=== PATIENT | female | born 1970 | race Caucasian/White ===

== ENCOUNTER 2019-02-11 13:46 | Inpatient (IN) ==
[2019-02-11 15:02] LABS: Bilirubin,Urine Negative (Negative); Blood,Urine Negative (Negative); Clarity,Urine Clear (Clear); Color,Urine Yellow (Yellow); Glucose,Urine (UA) Normal (Normal); Ketones,Urine Negative (Negative); Leukocyte Esterase,Urine Negative (Negative); Nitrite,Urine Negative (Negative); Protein,Urine Negative (Neg-Trace); Specific Gravity,Urine 1.027 (1.010-1.025); Urobilinogen,Urine Normal (Normal)
[2019-02-11] MEDS ORDERED: Ondansetron ODT 4 MG TAB.RAPDIS SL ONE (15:32)
[2019-02-11 15:33] LABS: Basophils % 0.5 %; Eosinophils # 0.2 K/mcL (0.0-0.6); Eosinophils % 2.8 %; Hematocrit 38.6 % (35.3-44.9); Hemoglobin 12.4 g/dL (11.5-15.4); Immature Granulocytes % 0.2 % (0-4); Lymphocytes # 1.8 K/mcL (0.6-4.6); Lymphocytes % 28.6 %; Mean Corpuscular HGB Conc 32.1 g/dL (31.6-35.5); Mean Corpuscular Hemoglobin 26.6 pg (28.0-33.3); Mean Corpuscular Volume 82.7 fL (83.0-100.0); Mean Platelet Volume 9.7 fL (9.4-12.4); Monocytes # 0.4 K/mcL (0.0-1.3); Monocytes % 6.7 %; Neutrophils # 3.9 K/mcL (1.6-8.9); Platelet Count 380 K/mcL (140-400); Red Blood Count 4.67 M/mcL (3.82-4.97); Red Cell Distribution Width 13.5 % (11.5-14.5); Segmented Neutrophils % 61.2 %; White Blood Count 6.4 K/mcL (4.3-11.1)
[2019-02-11 15:58] LABS: BUN/Creatinine Ratio 16 (6-26); Blood Urea Nitrogen 14 mg/dL (6-20); Calcium 10.1 mg/dL (8.6-10.3); Carbon Dioxide 22 mEq/L (23-29); Chloride 107 mEq/L (98-107); Glucose 153 mg/dL (70-105); Osmolality,Calculated 286 (280-300); Potassium 3.8 mEq/L (3.5-5.1); Sodium 136 mEq/L (136-145); eGFR For African Americans > 60 (> 60); eGFR For Non-African Americans > 60 (> 60)
[2019-02-11] MEDS ORDERED: *HR* Promethazine 25 MG/ML VIAL IVP ONE (16:13)
[2019-02-11] MEDS ORDERED: 0.9 % Sodium Chloride 1,000 ML IVC ONE (16:13)
--- NOTE | 2019-02-11 16:22 | Emergency Department Note ---
Disposition Clinical Impression: Enterocolitis Disposition: Admitted As Inpatient Time of Disposition: 18:04 Abdominal Pain HPI - General Chief Complaint: ED Abdominal Pain Stated Complaint: C-Diff Time Seen by Provider: 02/11/19 13:49 Source: patient Mode of arrival: ambulatory Limitations: no limitations Nursing Notes Reviewed: Yes Vital Signs Reviewed: Yes - History of Present Illness HPI Narrative: 49F with PMHx of gastroparesis and C diff presents emergency Department with abdominal pain, nausea, vomiting and diarrhea and concerns for recurrence of C. difficile. Patient states that she was recently taking Augmentin for a tooth infection and last took antibiotics on the . Since then she has been having diarrhea that has been worsening daily but had been able to keep herself hydrated with fluids. Today she began having nausea and vomiting and has not been able to keep anything down and she is concerned she has developed C. difficile again. She states the stools are beginning to smell like C. difficile like when she had in the past. She went to many antibiotics and there is talks of a fecal transplant for her C. difficile when she had it many years ago but she finally was able to have the infection controlled by taking dificid. She denies fever, chills, chest pain, shortness of breath, dysuria. She has not noticed any blood in the stools. Pain Scale: 8 - Related Data Home Medications Medication Instructions Recorded Confirmed Bentyl 20 mg PO TID 09/11/15 02/11/19 Lantus 60 units SQ DAILY 09/11/15 02/11/19 Protonix 40 mg PO BID 09/11/15 02/11/19 Seroquel 600 mg PO DAILY 09/11/15 02/11/19 Zanaflex 4 mg PO DAILY 09/11/15 02/11/19 Exenatide Microspheres [Bydureon 2 mg SQ 02/11/19 Pen] Fenofibrate Nanocrystallized 145 mg PO DAILY 02/11/19 02/11/19 [Fenofibrate] HydrOXYzine [Atarax] 50 mg PO TID PRN 02/11/19 02/11/19 Insulin ASPART [NovoLOG] 02/11/19 02/11/19 Lisinopril [Zestril] 10 mg PO DAILY 02/11/19 02/11/19 Misoprostol [Cytotec] 200 mcg PO TID 02/11/19 02/11/19 Modafinil [Provigil] 200 mg PO 02/11/19 02/11/19 Paroxetine [Paxil] 30 mg PO BID 02/11/19 02/11/19 Prochlorperazine Maleate 5 mg PO DAILY PRN 02/11/19 02/11/19 [Compazine] traZODone [TraZODone] 100 mg PO DAILY 02/11/19 02/11/19 Allergies Allergy/AdvReac Type Severity Reaction Status Date / Time metformin [From Glucophage] Allergy Diarrhea Verified 09/11/15 10:26 vancomycin Allergy Rash Verified 09/11/15 10:26 All systems ED: reviewed and negative except as stated. Review of Systems: As Per HPI Constitutional: Denies: fever, chills, weakness Cardiovascular: Denies: chest pain, palpitations, dyspnea on exertion Respiratory: Denies: cough, dyspnea, wheezes Gastrointestinal: Reports: abdominal pain, nausea, vomiting, diarrhea. Denies: melena, hematochezia Genitourinary: Denies: dysuria, hematuria Musculoskeletal: Denies: back pain Neurological: Denies: headache Endocrine: Reports: fatigue Abdominal Pain PMH - Past Medical History Medical history: Reports: diabetes, GERD, hyperlipidemia Female Surgical History: Reports: appendectomy, cholecystectomy, hysterectomy, other - Social History Smoking status: Never smoker Alcohol use: Reports: none Physical Exam - General Limitations: no limitations General appearance: alert, other (appears uncomfortable) - Head Head exam: atraumatic, normocephalic - Eye Eye exam: Present: normal appearance, EOMI - Chest Chest inspection: Present: normal inspection. Absent: tenderness, rash - Respiratory Respiratory exam: Present: normal lung sounds bilaterally. Absent: wheezes - Cardiovascular Cardiovascular exam: Present: regular rate, normal rhythm - Abdominal Exam Abdominal exam: Present: soft, tenderness. Absent: distention, guarding, rebound, rigidity Abdominal tenderness: Present: diffuse, mild - Extremities Exam Extremities exam: Present: normal inspection. Absent: tenderness - Neurological Exam Neurological exam: Present: alert, oriented X3 - Psychiatric Psychiatric exam: Present: normal affect, normal mood - Skin Skin exam: Present: warm, dry, intact Course Vital Signs Temperature 98.6 F 02/11/19 13:49 Pulse Rate 72 02/11/19 13:49 Respiratory Rate 18 02/11/19 13:49 Blood Pressure 145/100 02/11/19 13:49 O2 Sat by Pulse Oximetry 99 02/11/19 13:49 Temperature 98.6 F 02/11/19 13:59 Pulse Rate 70 02/11/19 15:44 Respiratory Rate 18 02/11/19 15:44 Blood Pressure 147/87 02/11/19 15:44 O2 Sat by Pulse Oximetry 99 02/11/19 15:44 Oxygen Delivery Oxygen Delivery Room Air Abdominal Pain - MDM Narrative Medical decision making narrative: Patient presents with worsening diarrhea, nausea and vomiting and concerns for recurrence of C. difficile. We will obtain basic labs and a CAT scan of the patient's abdomen and administer Zofran for nausea. We will also send a GI panel. 1620 - patient's CAT scan shows nonspecific enterocolitis. GI panel was negative for any infectious causes of her diarrhea. patient is still complaining of nausea therefore we will administer Phenergan and try by mouth c hallenge. If she is unable to tolerate this we will admit her for her colitis. 1800 - patient is unable to tolerate anything by mouth therefore we will admit her. Accepting physician is Dr. Mendoza. - Medical Records Medical records reviewed: Yes I reviewed the patient's medical records. - Lab Data Lab results reviewed: Yes I reviewed the patient's lab results. Result diagrams: 02/11/19 14:46 02/11/19 14:46 Lab Results 02/11/19 02/11/19 02/11/19 Range/Units 14:46 14:46 14:49 WBC 6.4 (4.3-11.1) K/mcL RBC 4.67 (3.82-4.97) M/mcL Hgb 12.4 (11.5-15.4) g/dL Hct 38.6 (35.3-44.9) % MCV 82.7 L (83.0-100.0) fL MCH 26.6 L (28.0-33.3) pg MCHC 32.1 (31.6-35.5) g/dL RDW 13.5 (11.5-14.5) % Plt Count 380 (140-400) K/mcL MPV 9.7 (9.4-12.4) fL Immature Gran % 0.2 (0-4) % Seg Neutrophils % 61.2 % Lymphocytes % 28.6 % Monocytes % 6.7 % Eosinophils % 2.8 % Basophils % 0.5 % Neutrophils # 3.9 (1.6-8.9) K/mcL Lymphocytes # 1.8 (0.6-4.6) K/mcL Monocytes # 0.4 (0.0-1.3) K/mcL Eosinophils # 0.2 (0.0-0.6) K/mcL Basophils # 0.0 (0.0-0.2) K/mcL Sodium 136 (136-145) mEq/L Potassium 3.8 (3.5-5.1) mEq/L Chloride 107 (98-107) mEq/L Carbon Dioxide 22 L (23-29) mEq/L BUN 14 (6-20) mg/dL Creatinine 0.90 (0.60-1.20) mg/dL Est GFR ( Amer) > 60 (> 60) Est GFR (Non-Af Amer) > 60 (> 60) BUN/Creatinine Ratio 16 (6-26) Glucose 153 H (70-105) mg/dL Calculated Osmolality 286 (280-300) Calcium 10.1 (8.6-10.3) mg/dL Urine Color Yellow (Yellow) Urine Clarity Clear (Clear) Urine pH 6.0 (5.0-8.0) pH Units Ur Specific [place] 1.027 H (1.010-1.025) Urine Protein Negative (Neg-Trace) mg/dL Urine Glucose (UA) Normal (Normal) mg/dL Urine Ketones Negative (Negative) mg/dL Urine Blood Negative (Negative) Urine Nitrite Negative (Negative) Urine Bilirubin Negative (Negative) Urine Urobilinogen Normal (Normal) mg/dL Ur Leukocyte Esterase Negative (Negative) Ur Culture Indicated? NO (NO) - Radiology Data Radiology results reviewed: Yes I reviewed the patient's radiology results. Attestation Statement - Attestation Attestation: I, Warren James, examined this patient and my medical decision-making was reviewed with the CRM MARKETING SPECIALIST/PA/Advanced Practice Nurse/Resident Physician. I agree with the documented findings, disposition and treatment plan as described except to the extent set forth below. 49-year-old female presents emergency Department with concerns of persistent diarrhea. Patient states she has been taking Augmentin for a sinus infection. She started developing persistent diarrhea. She has had at least 5-6 bowel movements a day that are described as liquid and fell swelling. She has a history of C. difficile and this feels similar to that. Patient has been unable to tolerate by mouth intake well as an outpatient. CT showed nonspecific enterocolitis. Patient started on antibiotics emergency department. C. diffici le toxin assay was negative. Patient not tolerating by mouth intake. She will be admitted to the hospital service further care and evaluation.
[2019-02-11 17:20] LABS: Adenovirus F 40/41 PCR Not detected (Not detect); Astrovirus PCR Not detected (Not detect); C.difficile Toxin A/B Gene PCR Not detected (Not detect); Campylobacter by PCR Not detected (Not detect); Cryptosporidium by PCR Not detected (Not detect); Cyclospora cayetanensis PCR Not detected (Not detect); E. coli O157 by PCR Not detected (Not detect); Entamoeba histolytica PCR Not detected (Not detect); Enteroaggregative E.coli(EAEC) Not detected (Not detect); Enteropathogenic E.coli(EPEC) Not detected (Not detect); Enterotoxigenic E.coli (ETEC) Not detected (Not detect); Giardia lamblia PCR Not detected (Not detect); Norovirus GI/GII PCR Not detected (Not detect); Plesiomonas shigelloides PCR Not detected (Not detect); Rotavirus A PCR Not detected (Not detect); Salmonella PCR Not detected (Not detect); Sapovirus PCR Not detected (Not detect); Shig/EnteroinvasiveE coli EIEC Not detected (Not detect); Shigalike tox-prod E coli STEC Not detected (Not detect); Vibrio PCR Not detected (Not detect); Vibrio cholerae PCR Not detected (Not detect); Yersinia enterocolitica PCR Not detected (Not detect)
--- NOTE | 2019-02-11 17:38 | Internal Med History&Physical ---
Date of Encounter: 02/11/19 Time of Encounter: 17:45 Internal Medicine - H&P: HPI Chief complaint: Intractable nausea, vomiting and diarrhea along with abdominal pain Admitted From: Emergency Dept Plans for Post Hospital Care: Home History of present illness: Ms. Watts is a 49 year old female Patient with a history of gastroparesis, GERD, diabetes and prior episodes of C. difficile presented to the ER with complaints of intractable nausea, vomiting, abdominal pain and diarrhea. Patient has been having diarrhea for the past 10 days. She had been on Augmentin recently for tooth infection and developed diarrhea while receiving this antibiotic. She initially attributed the diarrhea to antibiotic associated diarrhea but it continued persistently even after she stopped taking antibiotics. She has had multiple episodes of watery loose stools since then. Since she also began to have nausea and vomiting along with abdominal pain. She describes the abdominal pain as intense in the left lower quadrant. Nonradiating. She has not had any blood in her stools but noticed some blood today in the ER on the back tissue after wiping. She has not had any hematemesis. She tried eating some vegetables soup around 11 AM this morning. She states that she had multiple episodes of C. difficile in the past. No episodes in the past year. She feels feverish and has been having some chills and sweats although no fever has been documented. Past Med Surg Social Fam HX - Past Medical History Medical history: diabetes, GERD, hyperlipidemia Additional medical history: migraines, c-diff, sepsis, stomach ulcers - Past Surgical History Additional surgical history: Tumor removed left wrist, parathyroidectomy, MRSA, Skin graft, Knee arthroscopy, pneumonia, breast mass removed - Social History Smoking Status: Never smoker Smokeless Tobacco Status: No Alcohol use: none - Additional Family History Additional family history: Family history reviewed and found to be noncontributory at this time Internal Medicine - H&P: Meds Bentyl 09/11/15 [History] Lantus 09/11/15 [History] Lorazepam 09/11/15 [History] Lorazepam 09/11/15 [History] Motrin 09/11/15 [History] Paxil 09/11/15 [History] Phenergan 09/11/15 [History] Protonix 09/11/15 [History] Seroquel 09/11/15 [History] Simvastatin 09/11/15 [History] Zanaflex 09/11/15 [History] Allergy/AdvReac Type Severity Reaction Status Date / Time metformin [From Glucophage] Allergy Diarrhea Verified 09/11/15 10:26 vancomycin Allergy Rash Verified 09/11/15 10:26 All Systems PM: A 10-system review of systems was performed and is negative for pertinent findings except as documented above in the HPI. - Constitutional Constitutional: anorexia, malaise, no chills, no fever(s), no night sweats - EENT Eyes: no change in vision, no discharge, no pain, no photophobia Ears: no ear discharge, no ear pain, no tinnitus Nose, mouth and throat: no dysphagia, no nasal discharge, no neck pain, no sore throat - Cardiovascular Cardiovascular ROS IM: no chest pain, no diaphoresis, no dyspnea, no lightheadedness, no palpitations, no syncope - Respiratory Respiratory: no cough, no dyspnea, no wheezing, no excessive phlegm production - Gastrointestinal Gastrointestinal: abdominal pain, loose stools, nausea, vomiting, no diarrhea, no hematemesis, no hematochezia, no melena - Genitourinary Genitourinary: no change in urinary stream, no dysuria, no flank pain, no hematuria - Musculoskeletal Musculoskeletal ROS IM: no numbness, no tingling - Integumentary Integumentary IM: no rash, no unusual bruising - Neurological Neurological ROS: no confusion, no convulsions, no focal weakness, no numbness, no tingling, no tremor(s) - Hematologic/Lymphatic Hematologic/Lymphatic: no easy bruising - Constitutional Vitals: Temp Pulse Resp BP Pulse Ox 98.6 F 70 18 147/87 99 02/11/19 13:59 02/11/19 15:44 02/11/19 15:44 02/11/19 15:44 02/11/19 15:44 Exam: General: Patient is alert, moderate distress, oriented x 3 Eyes: PERRLA, EOMI, no conjunctival injection or icterus Neck: No nuchal rigidity, trachea midline ENT: Mucous membranes dry Respiratory: Good respiratory effort. Normal breath sounds. No wheezing or crackles. Cardiovascular: Regular rate and rhythm. s1 and s2 normal No clicks, rubs, gallops, or murmurs. No pedal edema Abdomen: Abdomen is soft, distended, tenderness present in the left lower quadrant with increased bowel sounds. Musculoskeletal: Spontaneously moving all extremities Skin: warm, dry, intact. Neuro: Alert oriented x 3 normal cranial nerves, no focal deficits Psych: Normal affect and mood Internal Med - H&P Results - Labs CBC & Chem 7: 02/11/19 14:46 02/11/19 14:46 Labs: Short CBC 02/11/19 Range/Units 14:46 WBC 6.4 (4.3-11.1) K/mcL Hgb 12.4 (11.5-15.4) g/dL Hct 38.6 (35.3-44.9) % Plt Count 380 (140-400) K/mcL Neutrophils # 3.9 (1.6-8.9) K/mcL BMP 02/11/19 14:46 Sodium 136 Potassium 3.8 Chloride 107 Carbon Dioxide 22 L BUN 14 Creatinine 0.90 Glucose 153 H Calcium 10.1 Urine 02/11/19 Range/Units 14:49 Urine Color Yellow (Yellow) Urine Clarity Clear (Clear) Urine pH 6.0 (5.0-8.0) pH Units Ur Specific [place] 1.027 H (1.010-1.025) Urine Protein Negative (Neg-Trace) mg/dL Urine Glucose (UA) Normal (Normal) mg/dL - Impressions ITS Impressions Abdomen/Pelvis CT 02/11/19 15:12 IMPRESSION: There is fluid noted diffusely within the colon and throughout the bowel compatible with nonspecific enterocolitis. No focal wall thickening or inflammatory change noted. No acute intra-abdominal or intrapelvic abnormality otherwise noted. D/ / 02/11/2019 15:28:00 Chu Villanueva MD / inna Interpreting Provider: Chu Villanueva MD - Assessment and Plan (1) Colitis, nonspecific Current Visit: Yes Status: Acute (2) Abdominal pain Current Visit: Yes Status: Acute Qualifiers: Abdominal location: left lower quadrant Qualified Code(s): R10.32 - Left lower quadrant pain (3) Intractable nausea and vomiting Current Visit: Yes Status: Acute Qualifiers: Vomiting type: cyclical vomiting Qualified Code(s): G43.A1 - Cyclical vomiting, intractable (4) Diabetes mellitus, type 2 Current Visit: Yes Status: Acute Qualifiers: Diabetes mellitus exterminator helper insulin use: without exterminator helper use Diabetes mellitus complication status: with hyperglycemia Qualified Code(s): E11.65 - Type 2 diabetes mellitus with hyperglycemia - Summary of Assessment and Plan Summary of Assessment and Plan: Acute colitis: Etiology uncertain. Stool GI panel was negative. We will still check for C. difficile toxin in stools given that patient has previously had a history of C. difficile infection. No indication for antibiotics at this time given her negative panel. We will treat supportively with IV fluids. Keep nothing by mouth. Monitor vital signs. Treat nausea with antiemetics. Treat abdominal pain with pain medications. If her stool for C. difficile is negative, consider starting loperamide for diarrhea. Diabetes mellitus type 2: As patient will be nothing by mouth, will keep her on low correctional sliding scale insulin every 6 hours. Gastroesophageal reflux disease: Place patient on PPI. DVT prophylaxis with subcutaneous heparin. - Time Spent With Patient Total time spent is greater than 50% in coordination of care (as documented) at patient's floor/unit and/or counseling patient:
[2019-02-11] MEDS ORDERED: *HR* FentaNYL (PF) 100 MCG/2 ML VIAL IVP ONE (17:55)
[2019-02-11] MEDS ORDERED: Acetaminophen 325 MG TABLET PO PRN (17:56)
[2019-02-11] MEDS ORDERED: Naloxone 0.4 MG/ML INJ IVP PRN (17:56)
[2019-02-11] MEDS ORDERED: Dextrose Gel 15 GM/37.5 ML TUBE PO PRN ×2 (18:07)
[2019-02-11] MEDS ORDERED: *HR* Dextrose 50 % in Water (Syg) 50 ML SYRINGE IVP PRN (18:07)
[2019-02-11] MEDS ORDERED: D5% in Water 1,000 ML IVC PRN (18:07)
[2019-02-11] MEDS: Ringers Solution, Lactated 1,000 ML IVC SCH (20:15)
[2019-02-11] MEDS: Pantoprazole 40 MG VIAL IVP SCH (20:15)
[2019-02-11] MEDS: Ondansetron 4 MG/2 ML VIAL IVP PRN (22:03)
[2019-02-12] MEDS: Insulin LISPRO 300 UNITS/3 ML VIAL SQ SCH ×4 (00:01→18:08)
[2019-02-12] MEDS: *HR* Promethazine 25 MG/ML VIAL IVP PRN ×2 (04:07→13:48)
--- NOTE | 2019-02-12 08:37 | Internal Med Progress Note ---
<Reuben Orellana - Last Filed: 02/12/19 12:42> Hospitalist Progress Note - Encounter Date of Encounter: 02/12/19 Time of Encounter: 09:40 - Exam Vitals: Temp Pulse Resp BP Pulse Ox 98.7 F 64 17 123/80 97 02/12/19 10:38 02/12/19 10:38 02/12/19 10:38 02/12/19 10:38 02/12/19 10:38 - Assessment and Plan (1) Colitis, nonspecific Current Visit: Yes Status: Acute (2) Abdominal pain Current Visit: Yes Status: Acute (3) Intractable nausea and vomiting Current Visit: Yes Status: Acute (4) Diabetes mellitus, type 2 Current Visit: Yes Status: Acute - Time Spent with Patient Total time spent is greater than 50% in coordination of care (as documented) at patient's floor/unit and/or counseling patient: Internal Medicine: Result - Labs CBC & Chem 7: 02/12/19 08:29 02/12/19 08:29 Labs: Short CBC 02/11/19 02/12/19 Range/Units 14:46 08:29 WBC 6.4 5.2 (4.3-11.1) K/mcL Hgb 12.4 11.1 L (11.5-15.4) g/dL Hct 38.6 34.5 L (35.3-44.9) % Plt Count 380 339 (140-400) K/mcL Neutrophils # 3.9 2.6 (1.6-8.9) K/mcL BMP 02/11/19 02/12/19 14:46 08:29 Sodium 136 136 Potassium 3.8 3.5 Chloride 107 107 Carbon Dioxide 22 L 24 BUN 14 9 Creatinine 0.90 0.78 Glucose 153 H 114 H Calcium 10.1 9.0 Urine 02/11/19 Range/Units 14:49 Urine Color Yellow (Yellow) Urine Clarity Clear (Clear) Urine pH 6.0 (5.0-8.0) pH Units Ur Specific [place] 1.027 H (1.010-1.025) Urine Protein Negative (Neg-Trace) mg/dL Urine Glucose (UA) Normal (Normal) mg/dL - Impressions Impressions Abdomen/Pelvis CT 02/11/19 15:12 IMPRESSION: There is fluid noted diffusely within the colon and throughout the bowel compatible with nonspecific enterocolitis. No focal wall thickening or inflammatory change noted. No acute intra-abdominal or intrapelvic abnormality otherwise noted. D/ / 02/11/2019 15:28:00 Chu Villanueva MD / inna Interpreting Provider: Chu Villanueva MD Consult Discharge Plan - Plan Referrals: Estuardo Jaime [Primary Care Provider] - - Attending Attestation I saw evaluated and examined this patient and reviewed objective data including labs and my medical decision-making was reviewed with the Resident Physician, Angelina Recinos. I agree with the documented findings, disposition and treatment plan as described except to any changes set forth below. We independently had [id number] contact with the patient. Patient lying down in bed. She has noticed that her diarrhea is improved after she was placed nothing by mouth. Continues to have some nausea and abdominal pain. Continue supportive care. Continue IV hydration. Will start patient on clear liquid diet if patient is doing better later today. Blood sugars are well controlled. Continue to monitor. <Angelina Recinos - Last Filed: 02/12/19 14:56> Hospitalist Progress Note - Encounter Date of Encounter: 02/12/19 Time of Encounter: 08:36 - Subjective Interval History: Rand was seen and examined at bedside this morning. Notes that she is fee ling a little bit better this morning. She still endorses some mild abdominal tenderness in the epigastric region and left lower quadrant of her abdomen. Associated symptoms include nausea. Notes that she is still having watery diarrhea, but diarrheal episodes have improved since yesterday. Notes slight hematochezia, but denies any melena, and denies any episode of vomiting. She also knows that she is having some gum tenderness and swelling that has worsened since yesterday. - Exam Vitals: Temp Pulse Resp BP Pulse Ox 98.5 F 71 14 129/84 97 02/12/19 06:34 02/12/19 06:34 02/12/19 06:34 02/12/19 06:34 02/12/19 06:34 Exam: GEN: AOx3, mild distress, Vitals reviewed and stable HEAD: Atraumatic, Normocephalic EYES: PERRLA, EOMI, No conjunctival injection or pallor, no scleral icterus ENT: Mucous membranes moist. Very poor dentition. Erythema noted at upper left aspect of gums. NECK: Supple. Full ROM. No anterior cervical lymphadenopathy HEART: RRR, S1/S2 present. No murmurs, rubs, gallops LUNGS: Good respiratory effort. CTAB. no wheezes, rhonchi, rales, crackles ABD: Soft, mild tenderness to palpation in the epigastric region and LLQ. Otherwise non distended. Bowel sounds present. No rebound, guarding, rigidity. No RLQ tenderness EXT: No lower extremity edema. Spontaneously moving all extremities SKIN: Warm, dry, intact NEURO: CN 2 - 12 intact. No focal deficits PSYCH: Normal mood and affect - Assessment and Plan (1) Colitis, nonspecific Current Visit: Yes Status: Acute Assessment and Plan: This is a 49-year-old female with past medical history significant for diabetes mellitus type 2, diabetic gastroparesis, GERD, and history of prior episodes of Clostridium difficile colitis who initially presented to the ED with complaints of nausea, vomiting, diarrhea, abdominal pain with diarrhea persisted for the past 10 days. - Recently completed a course of Augmentin for 10 days for tooth infection and developed diarrhea while on antibiotic. - Nausea and vomiting for the past 4 days associated with abdominal pain - Now notes small amount of blood in her stool, but knows the diarrhea is improving - History of C. difficile in the past but no C. difficile in the past year - CT of the abdomen and pelvis without IV or oral contrast (02/11/19): Evidence of nonspecific enterocolitis, but no focal wall thickening or inflammatory changes noted. No acute intra-abdominal or intrapelvic abnormality noted. - GI panel negative - Urinalysis negative - Improved symptoms after IV fluid bolus PLAN: - Maintain NPO; Will advance to clear liquid diet with improvement in symptoms - Cont mIVF - IV Phenergan PRN for nausea - Pain control PRN (2) Abdominal pain Current Visit: Yes Status: Acute Assessment and Plan: Plan as above (3) Diabetes mellitus, type 2 Current Visit: Yes Status: Acute Assessment and Plan: History of type 2 diabetes mellitus PLAN: - Low-dose insulin sliding scale - Maintain patient on nothing by mouth for now DVT Prophylaxis: Heparin subcutaneous twice a day - Time Spent with Patient Total time spent is greater than 50% in coordination of care (as documented) at patient's floor/unit and/or counseling patient: less than 15 minutes Plan of Care Discussed with: patient Internal Medicine: Result - Labs CBC & Chem 7: 02/12/19 08:29 02/12/19 08:29 Labs: Short CBC 02/11/19 Range/Units 14:46 WBC 6.4 (4.3-11.1) K/mcL Hgb 12.4 (11.5-15.4) g/dL Hct 38.6 (35.3-44.9) % Plt Count 380 (140-400) K/mcL Neutrophils # 3.9 (1.6-8.9) K/mcL BMP 02/11/19 14:46 Sodium 136 Potassium 3.8 Chloride 107 Carbon Dioxide 22 L BUN 14 Creatinine 0.90 Glucose 153 H Calcium 10.1 Urine 02/11/19 Range/Units 14:49 Urine Color Yellow (Yellow) Urine Clarity Clear (Clear) Urine pH 6.0 (5.0-8.0) pH Units Ur Specific [place] 1.027 H (1.010-1.025) Urine Protein Negative (Neg-Trace) mg/dL Urine Glucose (UA) Normal (Normal) mg/dL - Impressions Impressions Abdomen/Pelvis CT 02/11/19 15:12 IMPRESSION: There is fluid noted diffusely within the colon and throughout the bowel compatible with nonspecific enterocolitis. No focal wall thickening or inflammatory change noted. No acute intra-abdominal or intrapelvic abnormality otherwise noted. D/ / 02/11/2019 15:28:00 Chu Villanueva MD / inna Interpreting Provider: Chu Villanueva MD <ReynaReuben - Last Filed: 02/12/19 12:42> (2) Abdominal pain Qualifiers: Abdominal location: left lower quadrant Qualified Code(s): R10.32 - Left lower quadrant pain (3) Intractable nausea and vomiting Qualifiers: Vomiting type: cyclical vomiting Qualified Code(s): G43.A1 - Cyclical vomiting, intractable (4) Diabetes mellitus, type 2 Qualifiers: Diabetes mellitus longterm insulin use: without terminal clerk use Diabetes mellitus complication status: with hyperglycemia Qualified Code(s): E11.65 - Type 2 diabetes mellitus with hyperglycemia <Angelina Recinos - Last Filed: 02/12/19 14:56> (2) Abdominal pain Qualifiers: Abdominal location: left lower quadrant Qualified Code(s): R10.32 - Left lower quadrant pain (3) Diabetes mellitus, type 2 Qualifiers: Diabetes mellitus longterm insulin use: without longterm use Diabetes mellitus complication status: with hyperglycemia Qualified Code(s): E11.65 - Type 2 diabetes mellitus with hyperglycemia
[2019-02-12] MEDS: Ketorolac 30 MG/ML VIAL IVP PRN ×2 (08:54→19:40)
[2019-02-12] MEDS: Pantoprazole 40 MG VIAL IVP SCH (08:54)
[2019-02-12 09:00] LABS: Basophils % 0.4 %; Eosinophils # 0.2 K/mcL (0.0-0.6); Eosinophils % 4.3 %; Hematocrit 34.5 % (35.3-44.9); Hemoglobin 11.1 g/dL (11.5-15.4); Immature Granulocytes % 0.4 % (0-4); Lymphocytes # 1.8 K/mcL (0.6-4.6); Lymphocytes % 35.1 %; Mean Corpuscular HGB Conc 32.2 g/dL (31.6-35.5); Mean Corpuscular Hemoglobin 26.4 pg (28.0-33.3); Mean Corpuscular Volume 82.1 fL (83.0-100.0); Mean Platelet Volume 9.7 fL (9.4-12.4); Monocytes # 0.5 K/mcL (0.0-1.3); Monocytes % 8.7 %; Neutrophils # 2.6 K/mcL (1.6-8.9); Platelet Count 339 K/mcL (140-400); Red Cell Distribution Width 13.5 % (11.5-14.5); Segmented Neutrophils % 51.1 %; White Blood Count 5.2 K/mcL (4.3-11.1)
[2019-02-12 09:18] LABS: BUN/Creatinine Ratio 12 (6-26); Blood Urea Nitrogen 9 mg/dL (6-20); Carbon Dioxide 24 mEq/L (23-29); Chloride 107 mEq/L (98-107); Glucose 114 mg/dL (70-105); Osmolality,Calculated 282 (280-300); Potassium 3.5 mEq/L (3.5-5.1); Sodium 136 mEq/L (136-145); eGFR For African Americans > 60 (> 60); eGFR For Non-African Americans > 60 (> 60)
[2019-02-12] MEDS: Ringers Solution, Lactated 1,000 ML IVC SCH ×3 (10:34→20:33)
[2019-02-12] MEDS: Ondansetron 4 MG/2 ML VIAL IVP PRN (10:37)
[2019-02-12] MEDS ORDERED: hydrOXYzine pamoate 25 MG CAPSULE PO PRN (16:31)
[2019-02-12] MEDS ORDERED: SUMAtriptan succinate 50 MG TABLET PO PRN (16:31)
[2019-02-12] MEDS: *HR* Heparin 5,000 UNIT/ML VIAL SQ SCH (18:09)
[2019-02-12] MEDS: tiZANidine 4 MG TABLET PO SCH (20:51)
[2019-02-12] MEDS: traZODone 50 MG TABLET PO SCH (20:52)
[2019-02-12] MEDS: Lactobacillus 1 EACH CAP.SPRINK PO SCH (20:52)
[2019-02-12] MEDS ORDERED: NON-FORMULARY MEDICATION 1 EACH EACH (Pantoprazole Sodium [Protonix] 40 MG) PO SCH (21:00)
[2019-02-13] MEDS: Insulin LISPRO 300 UNITS/3 ML VIAL SQ SCH ×5 (04:48→20:11)
[2019-02-13 05:29] LABS: Basophils % 0.5 %; Eosinophils # 0.3 K/mcL (0.0-0.6); Hematocrit 33.3 % (35.3-44.9); Hemoglobin 10.8 g/dL (11.5-15.4); Lymphocytes % 50.4 %; Mean Corpuscular HGB Conc 32.4 g/dL (31.6-35.5); Mean Corpuscular Hemoglobin 26.9 pg (28.0-33.3); Mean Corpuscular Volume 82.8 fL (83.0-100.0); Mean Platelet Volume 9.5 fL (9.4-12.4); Monocytes # 0.4 K/mcL (0.0-1.3); Monocytes % 8.7 %; Neutrophils # 1.3 K/mcL (1.6-8.9); Platelet Count 281 K/mcL (140-400); Red Blood Count 4.02 M/mcL (3.82-4.97); Red Cell Distribution Width 13.5 % (11.5-14.5); Segmented Neutrophils % 32.4 %
[2019-02-13] MEDS: Ringers Solution, Lactated 1,000 ML IVC SCH ×2 (05:44→20:19)
[2019-02-13 05:50] LABS: BUN/Creatinine Ratio 10 (6-26); Blood Urea Nitrogen 8 mg/dL (6-20); Calcium 8.9 mg/dL (8.6-10.3); Carbon Dioxide 25 mEq/L (23-29); Chloride 106 mEq/L (98-107); Glucose 92 mg/dL (70-105); Osmolality,Calculated 288 (280-300); Potassium 3.4 mEq/L (3.5-5.1); Sodium 140 mEq/L (136-145); eGFR For African Americans > 60 (> 60); eGFR For Non-African Americans > 60 (> 60)
[2019-02-13] MEDS: *HR* Heparin 5,000 UNIT/ML VIAL SQ SCH ×2 (08:50→17:24)
[2019-02-13] MEDS: Ondansetron 4 MG/2 ML VIAL IVP PRN (08:51)
[2019-02-13] MEDS: Ketorolac 30 MG/ML VIAL IVP PRN ×2 (08:51→15:36)
[2019-02-13] MEDS: Lactobacillus 1 EACH CAP.SPRINK PO SCH ×2 (08:51→20:17)
--- NOTE | 2019-02-13 08:59 | Internal Med Progress Note ---
<Reuben Orellana - Last Filed: 02/13/19 15:59> Hospitalist Progress Note - Encounter Date of Encounter: 02/13/19 Time of Encounter: 15:59 - Exam Vitals: Temp Pulse Resp BP Pulse Ox 98.3 F 66 16 120/79 97 02/13/19 11:18 02/13/19 11:18 02/13/19 11:18 02/13/19 11:18 02/13/19 11:18 - Assessment and Plan (1) Colitis, nonspecific Current Visit: Yes Status: Acute (2) Abdominal pain Current Visit: Yes Status: Acute (3) Intractable nausea and vomiting Current Visit: Yes Status: Acute (4) Diabetes mellitus, type 2 Current Visit: Yes Status: Acute - Time Spent with Patient Total time spent is greater than 50% in coordination of care (as documented) at patient's floor/unit and/or counseling patient: Internal Medicine: Result - Labs CBC & Chem 7: 02/13/19 05:17 02/13/19 05:17 Labs: Short CBC 02/13/19 Range/Units 05:17 WBC 4.0 L (4.3-11.1) K/mcL Hgb 10.8 L (11.5-15.4) g/dL Hct 33.3 L (35.3-44.9) % Plt Count 281 (140-400) K/mcL Neutrophils # 1.3 L (1.6-8.9) K/mcL BMP 02/13/19 05:17 Sodium 140 Potassium 3.4 L Chloride 106 Carbon Dioxide 25 BUN 8 Creatinine 0.83 Glucose 92 Calcium 8.9 Consult Discharge Plan - Plan Referrals: Estuardo Jaime [Primary Care Provider] - - Attending Attestation I saw evaluated and examined this patient and reviewed objective data including labs and my medical decision-making was reviewed with the Resident Physician, Nataly Arana. I agree with the documented findings, disposition and treatment plan as described except to any changes set forth below. We independently had [id number] contact with the patient. Patient complaining of nausea this morning. She did tolerate clear liquid diet and would like to advance her diet. She does continue to have generalized abdominal discomfort but mainly in the left lower quadrant. Diarrhea has improved. No fevers or chills. We will continue supportive care. Advance diet very slowly. Continue antiemetics for nausea and vomiting. Patient is requiring intravenous Phenergan for her nausea. Potassium 3.4 today. Will supplement. If patient is able to tolerate her diet with apt Control of her nausea and abdominal pain, she may be discharged tomorrow. <Nataly Arana - Last Filed: 02/13/19 18:37> Hospitalist Progress Note - Encounter Date of Encounter: 02/13/19 - Subjective Interval History: Patient reports she is still having abdominal pain but this is improved. She has not had any further episodes of diarrhea since Tuesday night/Tuesday morning. She still experiences a little nausea. She was given Zofran instead of Phenergan which did not help. She would like to try advancing from clear liquid diet to full liquid diet. On second visit today, patient reports she continues to have nausea after eating her full liquid meal. She would feel more comfortable remaining here another day. - Exam Vitals: Temp Pulse Resp BP Pulse Ox 98.1 F 76 15 120/80 97 02/13/19 08:14 02/13/19 08:14 02/13/19 08:14 02/13/19 08:14 02/13/19 08:14 Exam: GENERAL: awake, recumbent on left side, conversant. In no acute distress. EYES: anicteric, clear sclerae, pupils equal and reactive to light bilaterally HENT: atraumatic, normocephalic. Moist mucosa NECK: normal carotid pulses, supple CV: regular rate and rhythm. Normal S1 and S2. No murmurs, clicks, or gallops RESPIRATORY: clear to auscultation bilaterally. No wheezes, rhonchi, or rales. ABDOMEN: soft, nontender, nondistended. Normal bowel sounds EXTREMITIES: no edema. Peripheral pulses 2+/4 bilaterally. Capillary refill <2s SKIN: warm, dry - Assessment and Plan (1) Colitis, nonspecific Current Visit: Yes Status: Acute Assessment and Plan: Patient presented to ED with complaints of nausea, vomiting, diarrhea, abdominal pain for previous 10 days. Patient had history of previous episodes Clostridium difficile colitis. Recently was on Augmentin for 10 days for tooth infection; developed diarrhea while on antibiotic. -CT abdomen and pelvis showed nonspecific enterocolitis, but no focal wall thickening or inflammatory changes noted. No acute intra-abdominal or intrapelvic abnormality noted. Negative GI panel Negative urinalysis Symptoms have improved following IV fluid bolus Continue full liquid diet for now; if patient is tolerating tomorrow she will be discharged Continue IV fluids -IV Phenergan when necessary for nausea; recommend not using Zofran, as this does not abort nausea Pain control when necessary (2) Abdominal pain Current Visit: Yes Status: Acute Assessment and Plan: See recommendations as above. (3) Diabetes mellitus, type 2 Current Visit: Yes Status: Acute Assessment and Plan: Patient has history of type 2 diabetes Continue on low dose insulin sliding scale Continue on full liquid diet DVT Prophylaxis: Heparin subcutaneous twice a day - Time Spent with Patient Total time spent is greater than 50% in coordination of care (as documented) at patient's floor/unit and/or counseling patient: Internal Medicine: Result - Labs CBC & Chem 7: 02/13/19 05:17 02/13/19 05:17 Labs: Short CBC 02/12/19 02/13/19 Range/Units 08:29 05:17 WBC 5.2 4.0 L (4.3-11.1) K/mcL Hgb 11.1 L 10.8 L (11.5-15.4) g/dL Hct 34.5 L 33.3 L (35.3-44.9) % Plt Count 339 281 (140-400) K/mcL Neutrophils # 2.6 1.3 L (1.6-8.9) K/mcL BMP 02/12/19 02/13/19 08:29 05:17 Sodium 136 140 Potassium 3.5 3.4 L Chloride 107 106 Carbon Dioxide 24 25 BUN 9 8 Creatinine 0.78 0.83 Glucose 114 H 92 Calcium 9.0 8.9 <Rueben Orellana - Last Filed: 02/13/19 15:59> (2) Abdominal pain Qualifiers: Abdominal location: left lower quadrant Qualified Code(s): R10.32 - Left lower quadrant pain (3) Intractable nausea and vomiting Qualifiers: Vomiting type: cyclical vomiting Qualified Code(s): G43.A1 - Cyclical vomiting, intractable (4) Diabetes mellitus, type 2 Qualifiers: Diabetes mellitus middle or intermediate school principal insulin use: without middle or intermediate school principal use Diabetes mellitus complication status: with hyperglycemia Qualified Code(s): E11.65 - Type 2 diabetes mellitus with hyperglycemia <Nataly Arana - Last Filed: 02/13/19 18:37> (2) Abdominal pain Qualifiers: Abdominal location: left lower quadrant Qualified Code(s): R10.32 - Left lower quadrant pain (3) Diabetes mellitus, type 2 Qualifiers: Diabetes mellitus middle or intermediate school principal insulin use: without middle or intermediate school principal use Diabetes mellitus complication status: with hyperglycemia Qualified Code(s): E11.65 - Type 2 diabetes mellitus with hyperglycemia
[2019-02-13] MEDS: *HR* Promethazine 25 MG/ML VIAL IVP PRN ×2 (12:17→20:28)
[2019-02-13] MEDS: traZODone 50 MG TABLET PO SCH (20:17)
[2019-02-13] MEDS: tiZANidine 4 MG TABLET PO SCH (20:17)
[2019-02-13] MEDS ORDERED: Acetaminophen IV 1,000 MG/100 ML INFUS..BTL IVPB ONE (21:26)
[2019-02-14] MEDS: *HR* Heparin 5,000 UNIT/ML VIAL SQ SCH (05:33)
[2019-02-14 06:05] LABS: Basophils % 0.5 %; Eosinophils # 0.3 K/mcL (0.0-0.6); Eosinophils % 8.1 %; Hematocrit 34.7 % (35.3-44.9); Hemoglobin 11.2 g/dL (11.5-15.4); Immature Granulocytes % 0.3 % (0-4); Mean Corpuscular HGB Conc 32.3 g/dL (31.6-35.5); Mean Corpuscular Hemoglobin 26.7 pg (28.0-33.3); Mean Corpuscular Volume 82.8 fL (83.0-100.0); Mean Platelet Volume 10.1 fL (9.4-12.4); Monocytes # 0.4 K/mcL (0.0-1.3); Monocytes % 9.1 %; Neutrophils # 1.1 K/mcL (1.6-8.9); Platelet Count 241 K/mcL (140-400); Red Blood Count 4.19 M/mcL (3.82-4.97); Red Cell Distribution Width 13.7 % (11.5-14.5); White Blood Count 3.9 K/mcL (4.3-11.1)
[2019-02-14 06:26] LABS: BUN/Creatinine Ratio 11 (6-26); Blood Urea Nitrogen 9 mg/dL (6-20); Calcium 9.2 mg/dL (8.6-10.3); Carbon Dioxide 22 mEq/L (23-29); Chloride 109 mEq/L (98-107); Glucose 97 mg/dL (70-105); Osmolality,Calculated 287 (280-300); Sodium 139 mEq/L (136-145); eGFR For African Americans > 60 (> 60); eGFR For Non-African Americans > 60 (> 60)
[2019-02-14 06:47] VITALS: BP 101/65
[2019-02-14 07:20] LABS: Lymphocytes # 2.1 K/mcL (0.6-4.6)
--- NOTE | 2019-02-14 08:27 | Discharge Summary ---
<Nataly Arana - Last Filed: 02/14/19 13:03> - NOTES TO OUTPATIENT PROVIDER Notes to Outpatient Provider: Patient should follow up outpatient with GI. Date of Encounter: 02/14/19 Time of Encounter: 10:42 - Discharge Diagnosis (1) Colitis, nonspecific Priority: Primary Status: Acute (2) Abdominal pain Priority: Secondary Status: Acute Qualifiers: Abdominal location: left lower quadrant Qualified Code(s): R10.32 - Left lower quadrant pain (3) Diabetes mellitus, type 2 Priority: Secondary Status: Acute Qualifiers: Diabetes mellitus half-way insulin use: without half-way use Diabetes mellitus complication status: with hyperglycemia Qualified Code(s): E11.65 - Type 2 diabetes mellitus with hyperglycemia Hospital course: Ms. Watts is a 49 year old female presented to hospital for intractable nausea and vomiting, left lower quadrant abdominal pain, watery diarrhea for 10 days. She had recently been on Augmentin for dental infection. GI panel was negative. Urinalysis was negative. C. difficile toxin was negative. CT abdomen and pelvis showed evidence of nonspecific enterocolitis, no focal wall thickening/inflammatory changes. No acute intra-abdominal/intrapelvic abnormalities. Patient was started nothing by mouth during stay and gradually diet was advanced to full liquid diet. Patient was also put on IV fluids. She received IV Phenergan as needed. Patient is currently feeling better. She believes that nausea will be improved on her home medications and when she is able to eat foods that are not creamy. She is stable for discharge today. - Time Spent with Patient Total time spent providing and/or coordinating discharge services: - Discharge Medications Prescriptions: Continued Insulin ASPART [NovoLOG] 0 - 20 unit SQ TIDAC Lisinopril [Zestril] 10 mg PO QAM Fenofibrate Nanocrystallized [Fenofibrate] 145 mg PO QAM Paroxetine [Paxil] 30 mg PO BID Modafinil [Provigil] 200 mg PO DAILY Prochlorperazine Maleate [Compazine] 5 mg PO DAILY PRN PRN Reason: Nausea Exenatide Microspheres [Bydureon Pen] 2 mg SQ MO Ibuprofen 800 mg PO TID PRN PRN Reason: Pain Tizanidine HCl 4 mg PO HS Quetiapine Fumarate [Seroquel] 600 mg PO HS Pantoprazole Sodium [Protonix] 40 mg PO BID Dicyclomine Hcl [Bentyl] 20 mg PO TID hydrOXYzine HCl [Hydroxyzine HCl] 50 mg PO TID PRN PRN Reason: Anxiety miSOPROStol [Cytotec] 100 mcg PO TIDAC Trazodone HCl 100 mg PO HS SUMAtriptan Succinate [Imitrex] 100 mg PO AD PRN PRN Reason: Migraine Headache Home Medications: Exenatide Microspheres [Bydureon Pen] 2 mg SQ MO 02/11/19 [History] Fenofibrate Nanocrystallized [Fenofibrate] 145 mg PO QAM 02/11/19 [History] Insulin ASPART [NovoLOG] 0 - 20 unit SQ TIDAC 02/11/19 [History] Lisinopril [Zestril] 10 mg PO QAM 02/11/19 [History] Modafinil [Provigil] 200 mg PO DAILY 02/11/19 [History] Paroxetine [Paxil] 30 mg PO BID 02/11/19 [History] Prochlorperazine Maleate [Compazine] 5 mg PO DAILY PRN 02/11/19 [History] Dicyclomine Hcl [Bentyl] 20 mg PO TID 02/12/19 [History] Ibuprofen 800 mg PO TID PRN 02/12/19 [History] Pantoprazole Sodium [Protonix] 40 mg PO BID 02/12/19 [History] Quetiapine Fumarate [Seroquel] 600 mg PO HS 02/12/19 [History] SUMAtriptan Succinate [Imitrex] 100 mg PO AD PRN 02/12/19 [History] Tizanidine HCl 4 mg PO HS 02/12/19 [History] Trazodone HCl 100 mg PO HS 02/12/19 [History] hydrOXYzine HCl [Hydroxyzine HCl] 50 mg PO TID PRN 02/12/19 [History] miSOPROStol [Cytotec] 100 mcg PO TIDAC 02/12/19 [History] Allergies/Adverse Reactions: Allergy/AdvReac Type Severity Reaction Status Date / Time metformin [From Glucophage] Allergy Diarrhea Verified 09/11/15 10:26 vancomycin Allergy Rash Verified 09/11/15 10:26 Date of admission: 02/13/19 15:58 Primary care physician: Estuardo Jaime Consults: 02/13/19 07:07 Consult to Senior Behavioral Scientist [CONS] Routine Reason for SW Consult: discharge planning Discharging clinician: Nataly Arana Anticipated date of discharge: 02/14/19 - Constitutional Vitals: Temp Pulse Resp BP Pulse Ox 98.0 F 71 16 101/65 98 02/14/19 06:41 02/14/19 06:41 02/14/19 06:41 02/14/19 06:41 02/14/19 06:41 Exam: GENERAL: Awake, conversant. In no acute distress EYES: Anicteric, clear sclerae. Pupils are equal and reactive to light bilaterally HENT: Atraumatic, normocephalic. Moist mucosa, poor dentition. NECK: Supple, normal carotid pulses. CV: Regular rate and rhythm. Normal S1 and S2. No murmurs, clicks, gallops RESPIRATORY: Clear to auscultation bilaterally. No wheezes, rhonchi, rales ABDOMEN: Mild diffuse tenderness in upper quadrants. Nondistended, soft. Quiet bowel sounds. EXTREMITIES: No edema present. Peripheral pulses 2+/4. Capillary refill<2s SKIN: Warm, dry. No rashes, lesions. - Patient Status Disposition: Home, Self-Care Condition: Good Functional capacity at discharge: independent ambulation Overall status at discharge: patient is back to baseline - Discharge Instructions Follow Up With: Estuardo Jaime [Primary Care Provider] - 02/21/19 1:45 pm () Shaila Winston MD [Partnered Physician] - (Referral. New patient get establish. Web request entered. Office will call with date and time of appointment.) Additional Instructions: You should follow-up with GI as outpatient upon discharge. Dr. Winston's office has been contacted to set up visit. - Diet and Activity Activity: increase activity as tolerated Diet: advance to your usual diet (Patient should advance diet gradually.) <Jacinto Mercer - Last Filed: 02/14/19 17:50> Date of Encounter: 02/14/19 - Discharge Diagnosis (1) Colitis, nonspecific Status: Acute (2) Abdominal pain Status: Acute Qualifiers: Abdominal location: left lower quadrant Qualified Code(s): R10.32 - Left lower quadrant pain (3) Intractable nausea and vomiting Status: Acute Qualifiers: Vomiting type: cyclical vomiting Qualified Code(s): G43.A1 - Cyclical vomiting, intractable (4) Diabetes mellitus, type 2 Status: Acute Qualifiers: Diabetes mellitus half-way insulin use: without remote computer terminal operator use Diabetes mellitus complication status: with hyperglycemia Qualified Code(s): E11.65 - Type 2 diabetes mellitus with hyperglycemia Hospital course: Ms. Watts is a 49 year old female - Time Spent with Patient Total time spent providing and/or coordinating discharge services: Date of admission: 02/13/19 15:58 Primary care physician: Estuardo Jaime Consults: 02/13/19 07:07 Consult to Senior Behavioral Scientist [CONS] Routine Reason for SW Consult: discharge planning - Constitutional Vitals: Temp Pulse Resp BP Pulse Ox 98.0 F 71 16 101/65 98 02/14/19 06:41 02/14/19 06:41 02/14/19 06:41 02/14/19 06:41 02/14/19 06:41 - Attending Attestation I saw evaluated and examined this patient and reviewed objective data including labs and my medical decision-making was reviewed with the Resident Physician. I agree with the documented findings, disposition and treatment plan as described except to any changes set forth below. We independently had [id number] contact with the patient.
[2019-02-14] MEDS: Lactobacillus 1 EACH CAP.SPRINK PO SCH (08:59)
[2019-02-14] MEDS: Insulin LISPRO 300 UNITS/3 ML VIAL SQ SCH ×2 (09:00→12:13)
[2019-02-14] MEDS: *HR* Promethazine 25 MG/ML VIAL IVP PRN (09:06)
[2019-02-14] MEDS ORDERED: miSOPROStol 100 MCG TABLET PO SCH (11:30)
[2019-02-14] MEDS ORDERED: FLU Vac QV 19-20 (6Month+)/PF 0.5 ML SYRINGE IM ONE (11:57)
== END 2019-02-14 17:22 | disposition home or self-care (01) | DRG 392 ==
LOC: 3ANU 13:46 → EMEROOARM 13:46 → SUATTDRO 17:46 → 3ANU 18:40 → SUATTDRO 02-13 15:58
PROVIDERS: ADMIT Internal Medicine; ATTEND Student in an Organized Health Care Education/Training Program

== ENCOUNTER 2020-02-09 17:33 | Observation (INO) ==
[2020-02-09] MEDS ORDERED: Isovue-370 500 ML BOTTLE IVP ONE (17:56)
[2020-02-09 18:11] LABS: Bilirubin,Urine Negative (Negative); Blood,Urine Negative (Negative); Clarity,Urine Clear (Clear); Color,Urine Colorless (Yellow); Glucose,Urine (UA) >=1000 mg/dL (Normal); Ketones,Urine Negative (Negative); Leukocyte Esterase,Urine Negative (Negative); Mucus,Urine Few per lpf (None-Few); Nitrite,Urine Negative (Negative); PH,Urine 6.5 pH Units (5.0-8.0); Protein,Urine Negative (Neg-Trace); RBC,Urine 0-3 per hpf (0-3); Specific Gravity,Urine > 1.030 (1.010-1.025); Urobilinogen,Urine Normal (Normal); WBC,Urine 0-3 per hpf (0-3)
[2020-02-09 18:19] LABS: Basophils % 0.5 %; Eosinophils # 0.2 K/mcL (0.0-0.6); Eosinophils % 2.3 %; Hematocrit 45.4 % (35.3-44.9); Hemoglobin 14.2 g/dL (11.5-15.4); Immature Granulocytes % 0.3 % (0-4); Lymphocytes # 1.9 K/mcL (0.6-4.6); Lymphocytes % 26.3 %; Mean Corpuscular HGB Conc 31.3 g/dL (31.6-35.5); Mean Corpuscular Hemoglobin 25.6 pg (28.0-33.3); Mean Corpuscular Volume 81.9 fL (83.0-100.0); Mean Platelet Volume 10.1 fL (9.4-12.4); Monocytes # 0.6 K/mcL (0.0-1.3); Monocytes % 8.1 %; Neutrophils # 4.6 K/mcL (1.6-8.9); Platelet Count 261 K/mcL (140-400); Red Blood Count 5.54 M/mcL (3.82-4.97); Red Cell Distribution Width 13.2 % (11.5-14.5); Segmented Neutrophils % 62.5 %; White Blood Count 7.4 K/mcL (4.3-11.1)
[2020-02-09 18:20] LABS: VBG HCO3 23 mEq/L (21-27); VBG PCO2 39 mmHg (41-51); VBG PH 7.38 pH Units (7.32-7.42); VBG PO2 105 mmHg (25-50)
[2020-02-09 18:21] LABS: Estimated Average Glucose 318 mg/dl
[2020-02-09 18:49] LABS: Alanine Aminotransferase 46 Units/L (7-52); Albumin 4.5 g/dL (3.5-5.7); Albumin/Globulin Ratio 1.3 (1.1-2.2); Alkaline Phosphatase 131 Units/L (34-104); Aspartate Amino Transferase 29 Units/L (13-39); BUN/Creatinine Ratio 14 (6-26); Bilirubin,Total 0.4 mg/dL (0.3-1.0); Blood Urea Nitrogen 12 mg/dL (6-20); Calcium 9.6 mg/dL (8.6-10.3); Carbon Dioxide 20 mEq/L (23-29); Chloride 93 mEq/L (98-107); Globulin 3.5 g/dL (2.4-3.5); Glucose 659 mg/dL (70-105); Magnesium 1.8 mg/dL (1.6-2.6); Osmolality,Calculated 297 (280-300); Phosphorous 4.2 mg/dL (2.7-4.5); Potassium 3.7 mEq/L (3.5-5.1); Sodium 128 mEq/L (136-145); Troponin I < 0.03 ng/mL (< 0.04); eGFR For African Americans > 60 (> 60); eGFR For Non-African Americans > 60 (> 60)
[2020-02-09] MEDS ORDERED: *HR* Dextrose 50 % in Water (Vial) 50 ML VIAL IVP PRN ×2 (19:07→23:06)
[2020-02-09] MEDS: 0.9 % Sodium Chloride 1,000 ML IVC SCH ×3 (19:10→23:53)
[2020-02-09] MEDS ORDERED: Insulin Human Regular 100 UNIT in 0.9 % Sodium Chloride 100 ML IVC SCH ×2 (19:15→19:45)
[2020-02-09] MEDS: 0.9 % Sodium Chloride w KCl 20 MEQ/1,000 ML MLS IVC SCH ×2 (19:53→22:49)
[2020-02-09] MEDS ORDERED: *HR* Promethazine 25 MG/ML VIAL IVP ONE (20:18)
[2020-02-09] MEDS ORDERED: Morphine Sulfate 2 MG/ML SYRINGE IVP ONE (21:04)
[2020-02-09] MEDS ORDERED: Prochlorperazine 10 MG/2 ML VIAL IVP STA (21:42)
[2020-02-09] MEDS ORDERED: 0.9 % Sodium Chloride w KCl 20 MEQ/1,000 ML MLS IVC ONE (22:15)
[2020-02-09] MEDS ORDERED: Ondansetron 4 MG/2 ML VIAL IVP PRN (23:01)
[2020-02-09] MEDS ORDERED: Naloxone 0.4 MG/ML INJ IVP PRN (23:01)
[2020-02-09] MEDS ORDERED: SUMAtriptan succinate 50 MG TABLET PO PRN (23:04)
[2020-02-09] MEDS ORDERED: tiZANidine 4 MG TABLET PO PRN (23:04)
[2020-02-09] MEDS ORDERED: hydrOXYzine pamoate 25 MG CAPSULE PO PRN (23:04)
[2020-02-09] MEDS ORDERED: Morphine Sulfate 2 MG/ML SYRINGE IVP PRN (23:06)
[2020-02-09] MEDS ORDERED: D5% in Water 1,000 ML IVC PRN (23:06)
[2020-02-09] MEDS ORDERED: Dextrose Gel 15 GM/37.5 ML TUBE PO PRN ×2 (23:06)
[2020-02-09] MEDS ORDERED: Insulin LISPRO 300 UNITS/3 ML VIAL SQ SCH (23:15)
[2020-02-09] MEDS ORDERED: Insulin DETEMIR 100 UNIT/ML X5UNITS SQ SCH (23:30)
[2020-02-09] MEDS: Insulin DETEMIR 100 UNIT/ML X5UNITS SQ SCH (23:34)
[2020-02-10 06:33] LABS: Basophils % 0.6 %; Eosinophils # 0.3 K/mcL (0.0-0.6); Eosinophils % 4.7 %; Hematocrit 39.2 % (35.3-44.9); Hemoglobin 12.8 g/dL (11.5-15.4); Immature Granulocytes % 0.3 % (0-4); Lymphocytes # 2.6 K/mcL (0.6-4.6); Lymphocytes % 37.7 %; Mean Corpuscular HGB Conc 32.7 g/dL (31.6-35.5); Mean Corpuscular Hemoglobin 25.9 pg (28.0-33.3); Mean Corpuscular Volume 79.4 fL (83.0-100.0); Mean Platelet Volume 9.7 fL (9.4-12.4); Monocytes # 0.6 K/mcL (0.0-1.3); Monocytes % 8.7 %; Neutrophils # 3.2 K/mcL (1.6-8.9); Platelet Count 232 K/mcL (140-400); Red Blood Count 4.94 M/mcL (3.82-4.97); Red Cell Distribution Width 13.4 % (11.5-14.5); White Blood Count 6.8 K/mcL (4.3-11.1)
[2020-02-10 06:54] LABS: BUN/Creatinine Ratio 14 (6-26); Blood Urea Nitrogen 8 mg/dL (6-20); Calcium 8.3 mg/dL (8.6-10.3); Carbon Dioxide 23 mEq/L (23-29); Chloride 106 mEq/L (98-107); Chol/HDL Ratio 8.7 (0-4.9); Cholesterol 244 mg/dL (< 200); Glucose 228 mg/dL (70-105); HDL Cholesterol 28 mg/dL (40-59); Magnesium 1.5 mg/dL (1.6-2.6); Osmolality,Calculated 286 (280-300); Phosphorous 3.3 mg/dL (2.7-4.5); Potassium 3.7 mEq/L (3.5-5.1); Sodium 135 mEq/L (136-145); Triglycerides 550 mg/dL (< 150); eGFR For African Americans > 60 (> 60); eGFR For Non-African Americans > 60 (> 60)
[2020-02-10 07:06] LABS: Thyroid Stimulating Hormone 2.018 mcIU/mL (0.340-5.600)
[2020-02-10] MEDS: Insulin LISPRO 300 UNITS/3 ML VIAL SQ SCH ×6 (07:56→16:50)
[2020-02-10] MEDS: Insulin DETEMIR 100 UNIT/ML X5UNITS SQ SCH (07:57)
[2020-02-10] MEDS ORDERED: *HR* Enoxaparin 40 MG/0.4 ML SYRINGE SQ SCH (09:00)
[2020-02-10] MEDS ORDERED: PARoxetine 30 MG TABLET PO SCH (09:00)
[2020-02-10 10:25] VITALS: BP 152/91
[2020-02-10] MEDS: 0.9 % Sodium Chloride 1,000 ML IVC SCH (11:56)
[2020-02-10] MEDS ORDERED: FLU Vac QV 20-21 (6Month+)/PF 0.5 ML SYRINGE IM ONE (14:09)
[2020-02-10] MEDS ORDERED: hydrOXYzine pamoate 25 MG CAPSULE PO PRN (18:33)
[2020-02-10] MEDS ORDERED: Fluticasone Propionate Nasal 50 MCG/SPRAY BOTTLE NS PRN (18:33)
[2020-02-10] MEDS ORDERED: QUEtiapine Fumarate 300 MG TABLET PO SCH (21:00)
[2020-02-10] MEDS ORDERED: traZODone 50 MG TABLET PO SCH (21:00)
== END 2020-02-10 18:58 | disposition home or self-care (01) ==
LOC: 3ANU 17:33 → EMEROOARM 17:33 → SUATTDRO 22:05 → 3ANU 22:40
PROVIDERS: ADMIT Family Medicine; ATTEND Internal Medicine

== ENCOUNTER 2021-11-11 11:10 | Inpatient (IN) ==
[2021-11-11 14:22] LABS: Bilirubin,Urine Negative (Negative); Blood,Urine Negative (Negative); Clarity,Urine Clear (Clear); Color,Urine Light-Yellow (Yellow); Glucose,Urine (UA) >=1000 mg/dL (Normal); Ketones,Urine Negative (Negative); Leukocyte Esterase,Urine Negative (Negative); Nitrite,Urine Negative (Negative); PH,Urine 6.5 pH Units (5.0-8.0); Protein,Urine Negative (Neg-Trace); Specific Gravity,Urine > 1.030 (1.010-1.025); Squamous Epithelial Cell,Urine Few per hpf (None-Few); Urobilinogen,Urine Normal (Normal); WBC,Urine 0-3 per hpf (0-3)
[2021-11-11] MEDS ORDERED: 0.9 % Sodium Chloride 1,000 ML IVC ONE ×2 (15:24→22:49)
[2021-11-11] MEDS ORDERED: MetroNIDAZOLE 500 MG/100 ML 500 MG/100 ML BAG IVPB ONE (15:24)
[2021-11-11] MEDS ORDERED: Ondansetron 4 MG/2 ML VIAL IVP ONE (15:24)
[2021-11-11] MEDS ORDERED: Ketorolac 30 MG/ML VIAL IVP STA (15:30)
[2021-11-11] MEDS ORDERED: Ondansetron 4 MG/2 ML VIAL IVP PRN (15:49)
[2021-11-11] MEDS ORDERED: Melatonin 3 MG TABLET PO PRN (15:49)
[2021-11-11] MEDS ORDERED: Naloxone 0.4 MG/ML INJ IVP PRN (15:49)
[2021-11-11] MEDS ORDERED: Dextrose Gel 15 GM/37.5 ML TUBE PO PRN ×2 (15:52)
[2021-11-11] MEDS ORDERED: *HR* Dextrose 50 % in Water (Syg) 50 ML SYRINGE IVP PRN (15:52)
[2021-11-11] MEDS ORDERED: D5% in Water 1,000 ML IVC PRN (15:52)
[2021-11-11] MEDS ORDERED: Ringers Solution, Lactated 1,000 ML IVC SCH (16:00)
[2021-11-11 16:35] LABS: Basophils % 0.4 %; Eosinophils # 0.2 K/mcL (0.0-0.6); Eosinophils % 2.7 %; Hematocrit 39.6 % (35.3-44.9); Hemoglobin 13.1 g/dL (11.5-15.4); Immature Granulocytes % 0.5 % (0-4); Lymphocytes # 1.7 K/mcL (0.6-4.6); Lymphocytes % 20.4 %; Mean Corpuscular HGB Conc 33.1 g/dL (31.6-35.5); Mean Corpuscular Hemoglobin 28.9 pg (28.0-33.3); Mean Corpuscular Volume 87.4 fL (83.0-100.0); Mean Platelet Volume 10.1 fL (9.4-12.4); Monocytes # 0.7 K/mcL (0.0-1.3); Monocytes % 8.3 %; Neutrophils # 5.7 K/mcL (1.6-8.9); Platelet Count 203 K/mcL (140-400); Red Blood Count 4.53 M/mcL (3.82-4.97); Red Cell Distribution Width 12.8 % (11.5-14.5); Segmented Neutrophils % 67.7 %; White Blood Count 8.5 K/mcL (4.3-11.1)
[2021-11-11 16:51] LABS: Alanine Aminotransferase 21 Units/L (7-52); Albumin 4.4 g/dL (3.5-5.7); Albumin/Globulin Ratio 1.4 (1.1-2.2); Alkaline Phosphatase 88 Units/L (34-104); Aspartate Amino Transferase 17 Units/L (13-39); BUN/Creatinine Ratio 13 (6-26); Bilirubin,Direct 0.1 mg/dL (0.0-0.2); Bilirubin,Indirect 0.5 mg/dL (0.0-1.0); Bilirubin,Total 0.6 mg/dL (0.3-1.0); Blood Urea Nitrogen 10 mg/dL (6-20); Calcium 9.3 mg/dL (8.6-10.3); Carbon Dioxide 28 mEq/L (23-29); Chloride 101 mEq/L (98-107); Globulin 3.1 g/dL (2.4-3.5); Glucose 178 mg/dL (70-105); Lipase 23 Units/L (11-82); Osmolality,Calculated 283 (280-300); Potassium 3.6 mEq/L (3.5-5.1); Sodium 135 mEq/L (136-145); Total Protein 7.5 g/dL (6.4-8.9); eGFR For African Americans > 60 (> 60); eGFR For Non-African Americans > 60 (> 60)
[2021-11-11] MEDS ORDERED: Morphine Sulfate 2 MG/ML SYRINGE IVP PRN (17:21)
[2021-11-11] MEDS: Insulin LISPRO 300 UNITS/3 ML VIAL SUBQ SCH (18:44)
[2021-11-11] MEDS: Ketorolac 30 MG/ML VIAL IVP PRN (19:35)
[2021-11-11] MEDS: Metoclopramide 10 MG/2 ML VIAL IVP SCH (20:13)
[2021-11-12] MEDS: Metoclopramide 10 MG/2 ML VIAL IVP SCH ×4 (01:39→17:14)
[2021-11-12] MEDS: MetroNIDAZOLE 500 MG/100 ML 500 MG/100 ML BAG IVPB SCH ×3 (01:39→15:31)
[2021-11-12] MEDS ORDERED: 0.9 % Sodium Chloride 1,000 ML IVC ONE ×2 (01:39→19:34)
[2021-11-12 03:00] LABS: Basophils % 0.4 %; Eosinophils # 0.3 K/mcL (0.0-0.6); Eosinophils % 4.1 %; Hematocrit 33.7 % (35.3-44.9); Immature Granulocytes % 0.1 % (0-4); Lymphocytes # 2.1 K/mcL (0.6-4.6); Lymphocytes % 28.3 %; Mean Corpuscular HGB Conc 33.2 g/dL (31.6-35.5); Mean Corpuscular Hemoglobin 28.9 pg (28.0-33.3); Mean Corpuscular Volume 87.1 fL (83.0-100.0); Mean Platelet Volume 10.4 fL (9.4-12.4); Monocytes # 0.7 K/mcL (0.0-1.3); Monocytes % 9.1 %; Neutrophils # 4.3 K/mcL (1.6-8.9); Platelet Count 168 K/mcL (140-400); Red Blood Count 3.87 M/mcL (3.82-4.97); Red Cell Distribution Width 12.8 % (11.5-14.5); White Blood Count 7.4 K/mcL (4.3-11.1)
[2021-11-12 03:13] LABS: Hemoglobin 11.2 g/dL (11.5-15.4)
[2021-11-12 03:16] LABS: BUN/Creatinine Ratio 15 (6-26); Blood Urea Nitrogen 10 mg/dL (6-20); Carbon Dioxide 22 mEq/L (23-29); Chloride 108 mEq/L (98-107); Glucose 134 mg/dL (70-105); Magnesium 1.7 mg/dL (1.6-2.6); Osmolality,Calculated 285 (280-300); Potassium 3.5 mEq/L (3.5-5.1); Sodium 137 mEq/L (136-145); eGFR For African Americans > 60 (> 60); eGFR For Non-African Americans > 60 (> 60)
[2021-11-12] MEDS: Insulin LISPRO 300 UNITS/3 ML VIAL SUBQ SCH ×5 (04:50→21:48)
[2021-11-12] MEDS: 0.9 % Sodium Chloride 1,000 ML IVC SCH ×3 (08:14→22:29)
[2021-11-12] MEDS: PARoxetine 10 MG TABLET PO SCH ×2 (08:15→22:40)
[2021-11-12] MEDS: lisinopriL 10 MG TABLET PO SCH (08:15)
[2021-11-12] MEDS: Ketorolac 30 MG/ML VIAL IVP PRN (08:16)
[2021-11-12] MEDS: *HR* OxyCODONE/APAP 5/325 TABLET PO PRN ×2 (10:13→15:30)
[2021-11-12] MEDS: QUEtiapine Fumarate 300 MG TABLET PO SCH (22:40)
[2021-11-12] MEDS: traZODone 50 MG TABLET PO SCH (22:40)
[2021-11-13] MEDS: Metoclopramide 10 MG/2 ML VIAL IVP SCH ×5 (00:15→23:26)
[2021-11-13] MEDS: 0.9 % Sodium Chloride 1,000 ML IVC SCH ×3 (00:15→11:31)
[2021-11-13] MEDS: MetroNIDAZOLE 500 MG/100 ML 500 MG/100 ML BAG IVPB SCH ×4 (00:18→23:30)
[2021-11-13 04:40] LABS: Basophils % 0.4 %; Eosinophils % 0.5 %; Hematocrit 33.2 % (35.3-44.9); Hemoglobin 10.8 g/dL (11.5-15.4); Immature Granulocytes % 0.4 % (0-4); Lymphocytes % 12.4 %; Mean Corpuscular HGB Conc 32.5 g/dL (31.6-35.5); Mean Corpuscular Hemoglobin 28.4 pg (28.0-33.3); Mean Corpuscular Volume 87.4 fL (83.0-100.0); Mean Platelet Volume 9.9 fL (9.4-12.4); Monocytes # 0.7 K/mcL (0.0-1.3); Neutrophils # 6.4 K/mcL (1.6-8.9); Platelet Count 199 K/mcL (140-400); Red Cell Distribution Width 12.8 % (11.5-14.5); Segmented Neutrophils % 78.3 %; White Blood Count 8.1 K/mcL (4.3-11.1)
[2021-11-13 04:56] LABS: BUN/Creatinine Ratio 9 (6-26); Blood Urea Nitrogen 6 mg/dL (6-20); Calcium 7.8 mg/dL (8.6-10.3); Carbon Dioxide 21 mEq/L (23-29); Chloride 112 mEq/L (98-107); Glucose 114 mg/dL (70-105); Magnesium 1.5 mg/dL (1.6-2.6); Osmolality,Calculated 288 (280-300); Potassium 3.7 mEq/L (3.5-5.1); Sodium 140 mEq/L (136-145); eGFR For African Americans > 60 (> 60); eGFR For Non-African Americans > 60 (> 60)
[2021-11-13] MEDS: Insulin LISPRO 300 UNITS/3 ML VIAL SUBQ SCH ×4 (07:17→21:34)
[2021-11-13] MEDS: lisinopriL 10 MG TABLET PO SCH (07:28)
[2021-11-13] MEDS: Ketorolac 30 MG/ML VIAL IVP PRN (07:40)
[2021-11-13] MEDS: PARoxetine 10 MG TABLET PO SCH ×2 (07:41→21:31)
[2021-11-13] MEDS: QUEtiapine Fumarate 300 MG TABLET PO SCH (21:31)
[2021-11-13] MEDS: traZODone 50 MG TABLET PO SCH (21:32)
[2021-11-13] MEDS: *HR* OxyCODONE/APAP 5/325 TABLET PO PRN (21:41)
[2021-11-14 03:49] LABS: Basophils % 0.7 %; Eosinophils # 0.3 K/mcL (0.0-0.6); Eosinophils % 4.5 %; Hematocrit 32.7 % (35.3-44.9); Hemoglobin 10.6 g/dL (11.5-15.4); Immature Granulocytes % 0.2 % (0-4); Lymphocytes % 32.3 %; Mean Corpuscular HGB Conc 32.4 g/dL (31.6-35.5); Mean Corpuscular Hemoglobin 28.5 pg (28.0-33.3); Mean Corpuscular Volume 87.9 fL (83.0-100.0); Mean Platelet Volume 9.9 fL (9.4-12.4); Monocytes # 0.6 K/mcL (0.0-1.3); Monocytes % 10.1 %; Neutrophils # 3.2 K/mcL (1.6-8.9); Platelet Count 214 K/mcL (140-400); Red Blood Count 3.72 M/mcL (3.82-4.97); Red Cell Distribution Width 13.2 % (11.5-14.5); Segmented Neutrophils % 52.2 %; White Blood Count 6.1 K/mcL (4.3-11.1)
[2021-11-14 04:02] LABS: BUN/Creatinine Ratio 9 (6-26); Blood Urea Nitrogen 6 mg/dL (6-20); Calcium 8.2 mg/dL (8.6-10.3); Carbon Dioxide 22 mEq/L (23-29); Chloride 111 mEq/L (98-107); Glucose 142 mg/dL (70-105); Osmolality,Calculated 290 (280-300); Potassium 3.5 mEq/L (3.5-5.1); Sodium 140 mEq/L (136-145); eGFR For African Americans > 60 (> 60); eGFR For Non-African Americans > 60 (> 60)
[2021-11-14 04:49] VITALS: PULSE 63
[2021-11-14] MEDS: Metoclopramide 10 MG/2 ML VIAL IVP SCH (05:41)
[2021-11-14 07:37] VITALS: BP 169/91; TEMP 98.6; O2SAT 95
[2021-11-14] MEDS: Insulin LISPRO 300 UNITS/3 ML VIAL SUBQ SCH (08:19)
[2021-11-14] MEDS: MetroNIDAZOLE 500 MG/100 ML 500 MG/100 ML BAG IVPB SCH (08:24)
[2021-11-14] MEDS: lisinopriL 10 MG TABLET PO SCH (08:24)
[2021-11-14] MEDS: PARoxetine 10 MG TABLET PO SCH (08:29)
== END 2021-11-14 11:10 | disposition home or self-care (01) | DRG 392 ==
LOC: 3ANU 11:10 → EMEROOARM 11:10 → 3ANU 18:26
PROVIDERS: ADMIT Internal Medicine; ATTEND Internal Medicine

== ENCOUNTER 2021-12-01 20:33 | Inpatient (IN) ==
[2021-12-01 21:35] LABS: Basophils % 0.5 %; Hematocrit 46.8 % (35.3-44.9); Hemoglobin 15.7 g/dL (11.5-15.4); Immature Granulocytes % 0.2 % (0-4); Lymphocytes # 1.2 K/mcL (0.6-4.6); Lymphocytes % 14.3 %; Mean Corpuscular HGB Conc 33.5 g/dL (31.6-35.5); Mean Corpuscular Volume 83.6 fL (83.0-100.0); Mean Platelet Volume 10.1 fL (9.4-12.4); Monocytes # 0.3 K/mcL (0.0-1.3); Monocytes % 3.4 %; Neutrophils # 6.7 K/mcL (1.6-8.9); Platelet Count 281 K/mcL (140-400); Red Cell Distribution Width 12.6 % (11.5-14.5); Segmented Neutrophils % 81.6 %; White Blood Count 8.2 K/mcL (4.3-11.1)
[2021-12-01 21:55] LABS: Alanine Aminotransferase 30 Units/L (7-52); Albumin 4.8 g/dL (3.5-5.7); Albumin/Globulin Ratio 1.4 (1.1-2.2); Alkaline Phosphatase 79 Units/L (34-104); Amylase 37 Units/L (29-103); Aspartate Amino Transferase 29 Units/L (13-39); BUN/Creatinine Ratio 10 (6-26); Bilirubin,Direct 0.1 mg/dL (0.0-0.2); Bilirubin,Indirect 0.5 mg/dL (0.0-1.0); Bilirubin,Total 0.6 mg/dL (0.3-1.0); Blood Urea Nitrogen 9 mg/dL (6-20); Calcium 9.1 mg/dL (8.6-10.3); Carbon Dioxide 16 mEq/L (23-29); Chloride 98 mEq/L (98-107); Globulin 3.4 g/dL (2.4-3.5); Glucose 522 mg/dL (70-105); Lipase 13 Units/L (11-82); Osmolality,Calculated 294 (280-300); Potassium 4.4 mEq/L (3.5-5.1); Sodium 131 mEq/L (136-145); Total Protein 8.2 g/dL (6.4-8.9); eGFR For African Americans > 60 (> 60); eGFR For Non-African Americans > 60 (> 60)
[2021-12-01] MEDS ORDERED: 0.9 % Sodium Chloride 1,000 ML IVC ONE ×2 (22:04→22:06)
[2021-12-01] MEDS ORDERED: Metoclopramide 10 MG/2 ML VIAL IVP ONE (22:05)
[2021-12-01 23:08] LABS: Magnesium 1.7 mg/dL (1.6-2.6)
[2021-12-01 23:31] LABS: VBG HCO3 19 mEq/L (21-27); VBG PCO2 39 mmHg (41-51); VBG PO2 70 mmHg (25-50)
[2021-12-02 00:46] LABS: Bilirubin,Urine Negative (Negative); Blood,Urine Negative (Negative); Clarity,Urine Clear (Clear); Color,Urine Colorless (Yellow); Glucose,Urine (UA) >=1000 mg/dL (Normal); Ketones,Urine 60 mg/dL (Negative); Leukocyte Esterase,Urine Negative (Negative); Nitrite,Urine Negative (Negative); Protein,Urine Negative (Neg-Trace); RBC,Urine 0-3 per hpf (0-3); Specific Gravity,Urine > 1.030 (1.010-1.025); Urobilinogen,Urine Normal (Normal); WBC,Urine 0-3 per hpf (0-3)
[2021-12-02] MEDS ORDERED: Insulin Regular, Human 100 UNIT/ML IV ONE (00:49)
[2021-12-02] MEDS ORDERED: Iopamidol - 370 500 ML MLS IVP ONE (01:39)
[2021-12-02] MEDS ORDERED: *HR* Dextrose 50 % in Water (Syg) 50 ML SYRINGE IVP PRN ×3 (02:03→16:58)
[2021-12-02] MEDS ORDERED: D5% in 0.45% NACL 1,000 ML IVC PRN (02:03)
[2021-12-02] MEDS ORDERED: Acetaminophen 325 MG TABLET PO PRN (02:08)
[2021-12-02] MEDS ORDERED: Melatonin 3 MG TABLET PO PRN ×2 (02:08→12:49)
[2021-12-02] MEDS ORDERED: Naloxone 0.4 MG/ML INJ IVP PRN ×3 (02:08→12:49)
[2021-12-02] MEDS ORDERED: Ondansetron 4 MG/2 ML VIAL IVP PRN ×2 (02:08→12:49)
[2021-12-02] MEDS ORDERED: 0.45 % Sodium Chloride w/KCl 20 MEQ/1,000 ML MLS IVC SCH (02:15)
[2021-12-02] MEDS: D5% in 0.45% NACL w KCl 20 MEQ/1,000 ML MLS IVC PRN ×2 (05:23→11:50)
[2021-12-02 06:40] LABS: VBG HCO3 21 mEq/L (21-27); VBG PCO2 35 mmHg (41-51); VBG PH 7.39 pH Units (7.32-7.42); VBG PO2 110 mmHg (25-50)
[2021-12-02 06:40] LABS: Basophils % 0.3 %; Eosinophils % 0.1 %; Hematocrit 40.1 % (35.3-44.9); Hemoglobin 13.3 g/dL (11.5-15.4); Immature Granulocytes % 0.2 % (0-4); Lymphocytes # 2.1 K/mcL (0.6-4.6); Lymphocytes % 22.6 %; Mean Corpuscular HGB Conc 33.2 g/dL (31.6-35.5); Mean Corpuscular Hemoglobin 28.1 pg (28.0-33.3); Mean Corpuscular Volume 84.6 fL (83.0-100.0); Monocytes # 0.7 K/mcL (0.0-1.3); Monocytes % 7.9 %; Neutrophils # 6.4 K/mcL (1.6-8.9); Platelet Count 291 K/mcL (140-400); Red Blood Count 4.74 M/mcL (3.82-4.97); Red Cell Distribution Width 12.8 % (11.5-14.5); Segmented Neutrophils % 68.9 %; White Blood Count 9.4 K/mcL (4.3-11.1)
[2021-12-02 07:16] LABS: BUN/Creatinine Ratio 12 (6-26); Blood Urea Nitrogen 9 mg/dL (6-20); Calcium 8.6 mg/dL (8.6-10.3); Carbon Dioxide 21 mEq/L (23-29); Chloride 106 mEq/L (98-107); Glucose 193 mg/dL (70-105); Magnesium 1.6 mg/dL (1.6-2.6); Osmolality,Calculated 284 (280-300); Phosphorous 2.5 mg/dL (2.7-4.5); Potassium 3.8 mEq/L (3.5-5.1); Sodium 135 mEq/L (136-145); eGFR For African Americans > 60 (> 60); eGFR For Non-African Americans > 60 (> 60)
[2021-12-02] MEDS ORDERED: CefOXitin 2,000 MG VIAL ONE ×2 (07:17→13:30)
[2021-12-02] MEDS ORDERED: CefOXitin 1,000 MG VIAL ONE (07:17)
[2021-12-02] MEDS ORDERED: *HR* FentaNYL (PF) 100 MCG/2 ML VIAL ONE (07:48)
[2021-12-02] MEDS ORDERED: *HR* Midazolam HCl 2 MG/2 ML VIAL ONE (07:48)
[2021-12-02] MEDS ORDERED: Ondansetron 4 MG/2 ML VIAL ONE (07:48)
[2021-12-02] MEDS ORDERED: Lidocaine -MPF 4% 5 ML AMPUL ONE (07:48)
[2021-12-02] MEDS ORDERED: *HR* Rocuronium Bromide 50 MG/5 ML VIAL ONE ×2 (07:48→09:50)
[2021-12-02] MEDS ORDERED: Lidocaine -MPF 2% 5 ML VIAL ONE ×2 (07:48→09:21)
[2021-12-02] MEDS ORDERED: *HR* Propofol 200 MG/20 ML VIAL IVP ONE (07:48)
[2021-12-02] MEDS ORDERED: *HR* Succinylcholine 200 MG/10 ML VIAL IVP ONE (07:48)
[2021-12-02 08:25] LABS: Estimated Average Glucose 280 mg/dl; Hemoglobin A1C 11.4 %
[2021-12-02] MEDS ORDERED: Ketamine HCL *QUVA* 50mg (1mL) SYRINGE ONE (09:00)
[2021-12-02] MEDS ORDERED: cefOXitin 2,000 MG in 0.9 % Sodium Chloride 20 ML IVP ONE (09:00)
[2021-12-02] MEDS ORDERED: EPHEDrine 50 MG/ML VIAL ONE (09:31)
[2021-12-02] MEDS ORDERED: Sugammadex Sodium 200 MG/2 ML VIAL IV ONE (10:12)
[2021-12-02] MEDS ORDERED: *HR* HYDROMORPHONE 2 MG/ML VIAL ONE (10:37)
[2021-12-02] MEDS ORDERED: *HR* HYDROmorphone PF 0.5 MG/0.5 ML SYRINGE IVP PRN (11:15)
[2021-12-02] MEDS ORDERED: *HR* Labetalol 20 MG/4 ML SYRINGE IVP ONE (11:30)
[2021-12-02] MEDS: *HR* Labetalol 20 MG/4 ML SYRINGE IVP PRN ×2 (11:33→11:59)
[2021-12-02] MEDS: *HR* OxyCODONE Immed Rel 5 MG TABLET PO PRN ×2 (14:29→18:29)
[2021-12-02] MEDS: Acetaminophen IV 1,000 MG/100 ML BAG IVPB SCH ×2 (14:37→17:14)
[2021-12-02] MEDS ORDERED: Ketorolac 30 MG/ML VIAL IVP ONE (15:00)
[2021-12-02 16:29] LABS: Basophils % 0.1 %; Hematocrit 38.7 % (35.3-44.9); Hemoglobin 12.7 g/dL (11.5-15.4); Immature Granulocytes % 0.3 % (0-4); Lymphocytes % 6.8 %; Mean Corpuscular HGB Conc 32.8 g/dL (31.6-35.5); Mean Corpuscular Hemoglobin 28.5 pg (28.0-33.3); Mean Platelet Volume 9.9 fL (9.4-12.4); Monocytes # 1.5 K/mcL (0.0-1.3); Monocytes % 10.2 %; Neutrophils # 12.3 K/mcL (1.6-8.9); Platelet Count 274 K/mcL (140-400); Red Blood Count 4.45 M/mcL (3.82-4.97); Red Cell Distribution Width 13.3 % (11.5-14.5); Segmented Neutrophils % 82.6 %
[2021-12-02 16:32] LABS: White Blood Count 14.9 K/mcL (4.3-11.1)
[2021-12-02 16:42] LABS: BUN/Creatinine Ratio 8 (6-26); Blood Urea Nitrogen 6 mg/dL (6-20); Calcium 8.2 mg/dL (8.6-10.3); Carbon Dioxide 21 mEq/L (23-29); Chloride 108 mEq/L (98-107); Glucose 140 mg/dL (70-105); Magnesium 1.4 mg/dL (1.6-2.6); Osmolality,Calculated 284 (280-300); Phosphorous 1.7 mg/dL (2.7-4.5); Potassium 3.7 mEq/L (3.5-5.1); Sodium 137 mEq/L (136-145); eGFR For African Americans > 60 (> 60); eGFR For Non-African Americans > 60 (> 60)
[2021-12-02] MEDS: 0.45 % Sodium Chloride w/KCl 20 MEQ/1,000 ML MLS IVC SCH ×3 (16:43→23:57)
[2021-12-02] MEDS ORDERED: tiZANidine 4 MG TABLET PO PRN (16:55)
[2021-12-02] MEDS ORDERED: D5% in Water 1,000 ML IVC PRN (16:58)
[2021-12-02] MEDS ORDERED: Dextrose Gel 15 GM/37.5 ML TUBE PO PRN ×2 (16:58)
[2021-12-02] MEDS ORDERED: Potassium Phosphate 44 MEQ in 0.9 % Sodium Chloride 250 ML IVPB ONE (16:59)
[2021-12-02] MEDS ORDERED: Magnesium Sulfate 1 GM/102 ML PIGGYBACK IVPB ONE (16:59)
[2021-12-02] MEDS ORDERED: Insulin DETEMIR 100 UNIT/ML X5UNITS SUBQ ONE (17:13)
[2021-12-02] MEDS: Insulin LISPRO 300 UNITS/3 ML VIAL SUBQ SCH (17:22)
[2021-12-02] MEDS: Ketorolac 30 MG/ML VIAL IVP SCH (20:19)
[2021-12-02] MEDS: Gabapentin 300 MG CAPSULE PO SCH (20:20)
[2021-12-02] MEDS: QUEtiapine Fumarate 300 MG TABLET PO SCH (20:46)
[2021-12-02] MEDS: PARoxetine 10 MG TABLET PO SCH (21:20)
[2021-12-03] MEDS: *HR* OxyCODONE Immed Rel 5 MG TABLET PO PRN (01:25)
[2021-12-03] MEDS ORDERED: hydrALAZINE 10 MG TABLET PO PRN (03:33)
[2021-12-03] MEDS ORDERED: *HR* HYDROcodone/Acet 5/325 mg TABLET PO PRN (03:35)
[2021-12-03] MEDS: Ketorolac 30 MG/ML VIAL IVP SCH ×4 (03:56→20:46)
[2021-12-03 04:19] LABS: Basophils % 0.2 %; Eosinophils # 0.1 K/mcL (0.0-0.6); Eosinophils % 0.4 %; Hematocrit 39.3 % (35.3-44.9); Hemoglobin 12.9 g/dL (11.5-15.4); Immature Granulocytes % 0.3 % (0-4); Lymphocytes # 1.2 K/mcL (0.6-4.6); Lymphocytes % 9.7 %; Mean Corpuscular HGB Conc 32.8 g/dL (31.6-35.5); Mean Corpuscular Hemoglobin 28.6 pg (28.0-33.3); Mean Corpuscular Volume 87.1 fL (83.0-100.0); Mean Platelet Volume 9.7 fL (9.4-12.4); Monocytes # 1.3 K/mcL (0.0-1.3); Monocytes % 10.1 %; Neutrophils # 10.1 K/mcL (1.6-8.9); Platelet Count 281 K/mcL (140-400); Red Blood Count 4.51 M/mcL (3.82-4.97); Red Cell Distribution Width 13.2 % (11.5-14.5); Segmented Neutrophils % 79.3 %; White Blood Count 12.7 K/mcL (4.3-11.1)
[2021-12-03] MEDS: Morphine Sulfate 2 MG/ML SYRINGE IVP PRN ×3 (04:23→15:44)
[2021-12-03 04:42] LABS: BUN/Creatinine Ratio 6 (6-26); Blood Urea Nitrogen 5 mg/dL (6-20); Calcium 8.9 mg/dL (8.6-10.3); Carbon Dioxide 22 mEq/L (23-29); Chloride 105 mEq/L (98-107); Glucose 262 mg/dL (70-105); Magnesium 1.8 mg/dL (1.6-2.6); Osmolality,Calculated 288 (280-300); Phosphorous 3.4 mg/dL (2.7-4.5); Potassium 4.5 mEq/L (3.5-5.1); Sodium 136 mEq/L (136-145); eGFR For African Americans > 60 (> 60); eGFR For Non-African Americans > 60 (> 60)
[2021-12-03 04:50] LABS: Troponin I < 0.03 ng/mL (< 0.04)
[2021-12-03] MEDS ORDERED: *HR* Promethazine 25 MG/ML VIAL IM ONE (04:52)
[2021-12-03] MEDS: 0.45 % Sodium Chloride w/KCl 20 MEQ/1,000 ML MLS IVC SCH ×2 (05:19→09:28)
[2021-12-03] MEDS ORDERED: *HR* Metoprolol 5 MG/5 ML VIAL IVP PRN (07:57)
[2021-12-03] MEDS: Insulin LISPRO 300 UNITS/3 ML VIAL SUBQ SCH ×4 (08:26→17:07)
[2021-12-03] MEDS: Insulin DETEMIR 100 UNIT/ML X5UNITS SUBQ SCH ×2 (08:28→20:46)
[2021-12-03] MEDS: PARoxetine 10 MG TABLET PO SCH ×2 (08:28→20:45)
[2021-12-03] MEDS: Gabapentin 300 MG CAPSULE PO SCH ×2 (08:28→20:45)
[2021-12-03] MEDS: lisinopriL 10 MG TABLET PO SCH (08:29)
[2021-12-03] MEDS ORDERED: Prochlorperazine 10 MG/2 ML VIAL IVP STA (08:43)
[2021-12-03] MEDS ORDERED: Scopolamine Patch 1.5 MG PATCH.TD72 TD ONE (08:43)
[2021-12-03] MEDS: Pantoprazole 40 MG VIAL IVP SCH (10:48)
[2021-12-03] MEDS ORDERED: Prochlorperazine 10 MG/2 ML VIAL IVP PRN (15:00)
[2021-12-03] MEDS: Acetaminophen IV 1,000 MG/100 ML BAG IVPB SCH (17:07)
[2021-12-03] MEDS: QUEtiapine Fumarate 300 MG TABLET PO SCH (20:45)
[2021-12-04] MEDS: Insulin LISPRO 300 UNITS/3 ML VIAL SUBQ SCH ×8 (00:36→18:13)
[2021-12-04] MEDS: Acetaminophen IV 1,000 MG/100 ML BAG IVPB SCH ×4 (00:40→18:14)
[2021-12-04] MEDS: *HR* OxyCODONE Immed Rel 5 MG TABLET PO PRN (01:30)
[2021-12-04 02:52] LABS: Basophils % 0.3 %; Eosinophils % 0.2 %; Hematocrit 37.5 % (35.3-44.9); Hemoglobin 11.9 g/dL (11.5-15.4); Immature Granulocytes % 0.3 % (0-4); Lymphocytes # 1.6 K/mcL (0.6-4.6); Lymphocytes % 16.1 %; Mean Corpuscular HGB Conc 31.7 g/dL (31.6-35.5); Mean Corpuscular Volume 88.2 fL (83.0-100.0); Mean Platelet Volume 10.1 fL (9.4-12.4); Monocytes # 0.8 K/mcL (0.0-1.3); Monocytes % 8.1 %; Neutrophils # 7.4 K/mcL (1.6-8.9); Platelet Count 266 K/mcL (140-400); Red Blood Count 4.25 M/mcL (3.82-4.97); Red Cell Distribution Width 13.6 % (11.5-14.5); White Blood Count 9.8 K/mcL (4.3-11.1)
[2021-12-04 03:10] LABS: Alanine Aminotransferase 14 Units/L (7-52); Albumin 3.6 g/dL (3.5-5.7); Albumin/Globulin Ratio 1.2 (1.1-2.2); Alkaline Phosphatase 56 Units/L (34-104); Aspartate Amino Transferase 17 Units/L (13-39); BUN/Creatinine Ratio 15 (6-26); Bilirubin,Total 0.8 mg/dL (0.3-1.0); Blood Urea Nitrogen 12 mg/dL (6-20); Calcium 8.9 mg/dL (8.6-10.3); Carbon Dioxide 21 mEq/L (23-29); Chloride 107 mEq/L (98-107); Glucose 135 mg/dL (70-105); Osmolality,Calculated 286 (280-300); Potassium 3.6 mEq/L (3.5-5.1); Sodium 137 mEq/L (136-145); Total Protein 6.6 g/dL (6.4-8.9); eGFR For African Americans > 60 (> 60); eGFR For Non-African Americans > 60 (> 60)
[2021-12-04] MEDS: Ketorolac 30 MG/ML VIAL IVP SCH ×4 (03:34→21:41)
[2021-12-04] MEDS: Morphine Sulfate 2 MG/ML SYRINGE IVP PRN ×4 (05:27→23:43)
[2021-12-04] MEDS: PARoxetine 10 MG TABLET PO SCH ×2 (09:40→20:06)
[2021-12-04] MEDS: Gabapentin 300 MG CAPSULE PO SCH ×2 (09:40→20:06)
[2021-12-04] MEDS: lisinopriL 10 MG TABLET PO SCH (09:40)
[2021-12-04] MEDS: Pantoprazole 40 MG VIAL IVP SCH (09:41)
[2021-12-04] MEDS: Insulin DETEMIR 100 UNIT/ML X5UNITS SUBQ SCH ×2 (09:43→20:06)
[2021-12-04] MEDS: *HR* Enoxaparin 40 MG/0.4 ML SYRINGE SQ SCH (09:43)
[2021-12-04] MEDS ORDERED: 0.9 % Sodium Chloride 1,000 ML IVC SCH (10:45)
[2021-12-04] MEDS: QUEtiapine Fumarate 300 MG TABLET PO SCH (20:06)
[2021-12-05] MEDS: Insulin LISPRO 300 UNITS/3 ML VIAL SUBQ SCH ×7 (00:06→18:08)
[2021-12-05] MEDS: Ketorolac 30 MG/ML VIAL IVP SCH ×4 (04:18→20:17)
[2021-12-05] MEDS: *HR* OxyCODONE Immed Rel 5 MG TABLET PO PRN (04:18)
[2021-12-05 04:51] LABS: Basophils % 0.5 %; Eosinophils # 0.4 K/mcL (0.0-0.6); Eosinophils % 4.3 %; Hematocrit 34.6 % (35.3-44.9); Hemoglobin 10.9 g/dL (11.5-15.4); Immature Granulocytes % 0.2 % (0-4); Lymphocytes # 1.7 K/mcL (0.6-4.6); Lymphocytes % 19.8 %; Mean Corpuscular HGB Conc 31.5 g/dL (31.6-35.5); Mean Corpuscular Hemoglobin 28.2 pg (28.0-33.3); Mean Corpuscular Volume 89.6 fL (83.0-100.0); Mean Platelet Volume 10.1 fL (9.4-12.4); Monocytes # 0.7 K/mcL (0.0-1.3); Monocytes % 8.3 %; Neutrophils # 5.9 K/mcL (1.6-8.9); Platelet Count 225 K/mcL (140-400); Red Blood Count 3.86 M/mcL (3.82-4.97); Red Cell Distribution Width 13.2 % (11.5-14.5); Segmented Neutrophils % 66.9 %; White Blood Count 8.8 K/mcL (4.3-11.1)
[2021-12-05 05:11] LABS: Alanine Aminotransferase 11 Units/L (7-52); Albumin 3.2 g/dL (3.5-5.7); Albumin/Globulin Ratio 1.2 (1.1-2.2); Alkaline Phosphatase 56 Units/L (34-104); Aspartate Amino Transferase 16 Units/L (13-39); BUN/Creatinine Ratio 16 (6-26); Bilirubin,Total 0.6 mg/dL (0.3-1.0); Blood Urea Nitrogen 9 mg/dL (6-20); Calcium 7.9 mg/dL (8.6-10.3); Carbon Dioxide 23 mEq/L (23-29); Chloride 107 mEq/L (98-107); Globulin 2.7 g/dL (2.4-3.5); Glucose 76 mg/dL (70-105); Osmolality,Calculated 281 (280-300); Potassium 3.2 mEq/L (3.5-5.1); Sodium 137 mEq/L (136-145); Total Protein 5.9 g/dL (6.4-8.9); eGFR For African Americans > 60 (> 60); eGFR For Non-African Americans > 60 (> 60)
[2021-12-05] MEDS: Acetaminophen IV 1,000 MG/100 ML BAG IVPB SCH ×5 (06:01→23:45)
[2021-12-05] MEDS: *HR* Enoxaparin 40 MG/0.4 ML SYRINGE SQ SCH (06:01)
[2021-12-05] MEDS: PARoxetine 10 MG TABLET PO SCH ×2 (08:16→20:16)
[2021-12-05] MEDS: Morphine Sulfate 2 MG/ML SYRINGE IVP PRN ×3 (08:16→23:29)
[2021-12-05] MEDS: lisinopriL 10 MG TABLET PO SCH (08:16)
[2021-12-05] MEDS: Gabapentin 300 MG CAPSULE PO SCH ×2 (08:16→20:16)
[2021-12-05] MEDS: Pantoprazole 40 MG VIAL IVP SCH (08:17)
[2021-12-05] MEDS: Insulin DETEMIR 100 UNIT/ML X5UNITS SUBQ SCH (09:43)
[2021-12-05] MEDS ORDERED: Potassium Chloride Elixir 20 MEQ/15 ML UDC PO ONE (13:08)
[2021-12-05] MEDS: Ondansetron 4 MG/2 ML VIAL IVP PRN (14:57)
[2021-12-05] MEDS: QUEtiapine Fumarate 300 MG TABLET PO SCH (20:16)
[2021-12-06] MEDS: Insulin LISPRO 300 UNITS/3 ML VIAL SUBQ SCH ×4 (00:06→15:56)
[2021-12-06] MEDS: Ketorolac 30 MG/ML VIAL IVP SCH ×4 (04:43→20:00)
[2021-12-06 05:42] LABS: BUN/Creatinine Ratio 18 (6-26); Blood Urea Nitrogen 10 mg/dL (6-20); Calcium 8.4 mg/dL (8.6-10.3); Carbon Dioxide 27 mEq/L (23-29); Chloride 106 mEq/L (98-107); Glucose 58 mg/dL (70-105); Osmolality,Calculated 283 (280-300); Potassium 3.5 mEq/L (3.5-5.1); Sodium 138 mEq/L (136-145); eGFR For African Americans > 60 (> 60); eGFR For Non-African Americans > 60 (> 60)
[2021-12-06] MEDS: *HR* Enoxaparin 40 MG/0.4 ML SYRINGE SQ SCH (05:57)
[2021-12-06] MEDS: Morphine Sulfate 2 MG/ML SYRINGE IVP PRN ×2 (06:03→12:24)
[2021-12-06] MEDS: Acetaminophen IV 1,000 MG/100 ML BAG IVPB SCH ×3 (06:03→17:17)
[2021-12-06] MEDS: lisinopriL 10 MG TABLET PO SCH (08:15)
[2021-12-06] MEDS: Gabapentin 300 MG CAPSULE PO SCH ×2 (08:15→19:55)
[2021-12-06] MEDS: Pantoprazole 40 MG VIAL IVP SCH (08:15)
[2021-12-06] MEDS: PARoxetine 10 MG TABLET PO SCH ×2 (08:15→19:56)
[2021-12-06] MEDS: Insulin DETEMIR 100 UNIT/ML X5UNITS SUBQ SCH (09:15)
[2021-12-06] MEDS: Ondansetron 4 MG/2 ML VIAL IVP PRN (17:16)
[2021-12-06] MEDS: QUEtiapine Fumarate 300 MG TABLET PO SCH (19:55)
[2021-12-06] MEDS: *HR* OxyCODONE Immed Rel 5 MG TABLET PO PRN (20:00)
[2021-12-06] MEDS ORDERED: Insulin LISPRO 300 UNITS/3 ML VIAL SUBQ SCH (21:00)
[2021-12-07] MEDS: Acetaminophen IV 1,000 MG/100 ML BAG IVPB SCH ×3 (00:58→11:59)
[2021-12-07] MEDS: Ketorolac 30 MG/ML VIAL IVP SCH ×2 (03:14→08:25)
[2021-12-07] MEDS: *HR* Enoxaparin 40 MG/0.4 ML SYRINGE SQ SCH (05:57)
[2021-12-07] MEDS: Insulin LISPRO 300 UNITS/3 ML VIAL SUBQ SCH ×2 (08:09→11:58)
[2021-12-07] MEDS: Insulin DETEMIR 100 UNIT/ML X5UNITS SUBQ SCH (08:23)
[2021-12-07] MEDS: Gabapentin 300 MG CAPSULE PO SCH (08:25)
[2021-12-07] MEDS: lisinopriL 10 MG TABLET PO SCH (08:25)
[2021-12-07] MEDS: Pantoprazole 40 MG VIAL IVP SCH (08:25)
[2021-12-07] MEDS: PARoxetine 10 MG TABLET PO SCH (08:26)
[2021-12-07 08:57] LABS: Basophils # 0.1 K/mcL (0.0-0.2); Basophils % 0.6 %; Eosinophils # 0.5 K/mcL (0.0-0.6); Eosinophils % 5.6 %; Hematocrit 34.1 % (35.3-44.9); Immature Granulocytes % 0.5 % (0-4); Lymphocytes # 1.4 K/mcL (0.6-4.6); Lymphocytes % 14.5 %; Mean Corpuscular HGB Conc 32.3 g/dL (31.6-35.5); Mean Corpuscular Hemoglobin 28.4 pg (28.0-33.3); Mean Corpuscular Volume 88.1 fL (83.0-100.0); Mean Platelet Volume 9.5 fL (9.4-12.4); Monocytes % 9.9 %; Neutrophils # 6.6 K/mcL (1.6-8.9); Platelet Count 305 K/mcL (140-400); Red Blood Count 3.87 M/mcL (3.82-4.97); Red Cell Distribution Width 12.9 % (11.5-14.5); Segmented Neutrophils % 68.9 %; White Blood Count 9.6 K/mcL (4.3-11.1)
[2021-12-07 09:14] LABS: BUN/Creatinine Ratio 11 (6-26); Blood Urea Nitrogen 6 mg/dL (6-20); Calcium 8.4 mg/dL (8.6-10.3); Carbon Dioxide 25 mEq/L (23-29); Chloride 104 mEq/L (98-107); Glucose 210 mg/dL (70-105); Magnesium 1.4 mg/dL (1.6-2.6); Osmolality,Calculated 286 (280-300); Phosphorous 3.6 mg/dL (2.7-4.5); Potassium 3.5 mEq/L (3.5-5.1); Sodium 136 mEq/L (136-145); eGFR For African Americans > 60 (> 60); eGFR For Non-African Americans > 60 (> 60)
[2021-12-07] MEDS: *HR* OxyCODONE Immed Rel 5 MG TABLET PO PRN (10:21)
[2021-12-07 11:33] VITALS: BP 158/94; PULSE 80; O2SAT 95
[2021-12-07 11:53] VITALS: TEMP 96.9
== END 2021-12-07 12:42 | disposition home or self-care (01) | DRG 982 ==
LOC: 2NNU 20:33 → EMEROOARM 20:33 → 2NNU 12-02 02:46 → SUATTDRO 12-02 04:07
PROVIDERS: ADMIT Internal Medicine; ATTEND Family Medicine

== ENCOUNTER 2021-12-22 09:09 | Inpatient (IN) ==
[2021-12-22] MEDS ORDERED: 0.9 % Sodium Chloride 1,000 ML IVC ONE (09:22)
[2021-12-22] MEDS ORDERED: *HR* HYDROmorphone (PF) 1 MG/ML SYRINGE IVP ONE ×2 (10:16→13:02)
[2021-12-22] MEDS ORDERED: Ondansetron 4 MG/2 ML VIAL IVP ONE ×2 (10:20→13:50)
[2021-12-22] MEDS ORDERED: Iopamidol - 370 500 ML MLS IVP ONE (10:29)
[2021-12-22 11:29] LABS: Basophils # 0.1 K/mcL (0.0-0.2); Basophils % 0.4 %; Eosinophils # 0.1 K/mcL (0.0-0.6); Hematocrit 38.1 % (35.3-44.9); Hemoglobin 12.5 g/dL (11.5-15.4); Immature Granulocytes % 0.4 % (0-4); Lymphocytes # 2.3 K/mcL (0.6-4.6); Lymphocytes % 17.3 %; Mean Corpuscular HGB Conc 32.8 g/dL (31.6-35.5); Mean Corpuscular Hemoglobin 27.8 pg (28.0-33.3); Mean Corpuscular Volume 84.7 fL (83.0-100.0); Monocytes # 1.7 K/mcL (0.0-1.3); Monocytes % 12.5 %; Neutrophils # 9.2 K/mcL (1.6-8.9); Platelet Count 499 K/mcL (140-400); Red Cell Distribution Width 12.7 % (11.5-14.5); Segmented Neutrophils % 68.4 %; White Blood Count 13.4 K/mcL (4.3-11.1)
[2021-12-22 11:42] LABS: Alanine Aminotransferase 14 Units/L (7-52); Albumin 3.8 g/dL (3.5-5.7); Albumin/Globulin Ratio 0.9 (1.1-2.2); Alkaline Phosphatase 95 Units/L (34-104); Aspartate Amino Transferase 15 Units/L (13-39); BUN/Creatinine Ratio 10 (6-26); Bilirubin,Direct 0.1 mg/dL (0.0-0.2); Bilirubin,Indirect 0.6 mg/dL (0.0-1.0); Bilirubin,Total 0.7 mg/dL (0.3-1.0); Blood Urea Nitrogen 7 mg/dL (6-20); Calcium 9.5 mg/dL (8.6-10.3); Carbon Dioxide 25 mEq/L (23-29); Chloride 97 mEq/L (98-107); Globulin 4.2 g/dL (2.4-3.5); Glucose 136 mg/dL (70-105); Lipase < 3 Units/L (11-82); Magnesium 1.4 mg/dL (1.6-2.6); Osmolality,Calculated 280 (280-300); Phosphorous 4.2 mg/dL (2.7-4.5); Potassium 3.4 mEq/L (3.5-5.1); Sodium 135 mEq/L (136-145); Troponin I < 0.03 ng/mL (< 0.04); eGFR For African Americans > 60 (> 60); eGFR For Non-African Americans > 60 (> 60)
[2021-12-22 11:43] LABS: INR 1.5; Prothrombin Time 16.3 Seconds (9.4-12.1)
[2021-12-22 11:46] LABS: Activated Partial Thrombo Time 36.5 Seconds (26.0-36.0)
[2021-12-22] MEDS ORDERED: Piperacillin/Tazobactam 3.375 GM in 0.9 % Sodium Chloride Mini Bag 100 ML IVPB ONE (13:01)
[2021-12-22] MEDS ORDERED: Naloxone 0.4 MG/ML INJ IVP PRN (13:40)
[2021-12-22] MEDS ORDERED: *HR* HYDROcodone/Acet 5/325 mg TABLET PO PRN (13:40)
[2021-12-22] MEDS ORDERED: D5% in Water 1,000 ML IVC PRN (13:42)
[2021-12-22] MEDS ORDERED: *HR* Dextrose 50 % in Water (Syg) 50 ML SYRINGE IVP PRN (13:42)
[2021-12-22] MEDS ORDERED: Dextrose Gel 15 GM/37.5 ML TUBE PO PRN ×2 (13:42)
[2021-12-22] MEDS ORDERED: Potassium Chloride Elixir 20 MEQ/15 ML UDC PO ONE (14:08)
[2021-12-22] MEDS ORDERED: Ringers Solution, Lactated 1,000 ML IVC SCH (14:15)
[2021-12-22 14:22] LABS: Bacteria,Urine Few per hpf (None-Few); Bilirubin,Urine Negative (Negative); Blood,Urine Negative (Negative); Clarity,Urine Clear (Clear); Color,Urine Light-Yellow (Yellow); Glucose,Urine (UA) Normal (Normal); Ketones,Urine Trace mg/dL (Negative); Leukocyte Esterase,Urine Large (Negative); Mucus,Urine Few per lpf (None-Few); Nitrite,Urine Negative (Negative); PH,Urine 6.5 pH Units (5.0-8.0); Protein,Urine Trace mg/dL (Neg-Trace); Specific Gravity,Urine > 1.030 (1.010-1.025); Squamous Epithelial Cell,Urine Moderate per hpf (None-Few); Transitional Epi Cells,Urine Few per hpf (None-Few); Urobilinogen,Urine Normal (Normal); WBC,Urine 50-100 per hpf (0-3)
[2021-12-22] MEDS: DAPTOmycin 500 MG in 0.9 % Sodium Chloride 100 ML IVPB SCH (16:32)
[2021-12-22 17:41] LABS: Creatine Kinase 35 Units/L (30-223)
[2021-12-22] MEDS: Metoclopramide 10 MG/2 ML VIAL IVP PRN (18:25)
[2021-12-22] MEDS: *HR* Heparin 5,000 UNIT/ML VIAL SQ SCH (18:26)
[2021-12-22] MEDS: Insulin LISPRO 300 UNITS/3 ML VIAL SUBQ SCH (18:26)
[2021-12-22] MEDS: Insulin DETEMIR 100 UNIT/ML X5UNITS SUBQ SCH (21:42)
[2021-12-22] MEDS: traZODone 50 MG TABLET PO SCH (21:43)
[2021-12-22] MEDS: Ondansetron 4 MG/2 ML VIAL IVP PRN (21:43)
[2021-12-22] MEDS: QUEtiapine Fumarate 300 MG TABLET PO SCH (21:43)
[2021-12-22] MEDS ORDERED: Acetaminophen 325 MG TABLET PO ONE (21:44)
[2021-12-22] MEDS: Piperacillin/Tazobactam 3.375 GM in 0.9 % Sodium Chloride Mini Bag 100 ML IVPB SCH (21:44)
[2021-12-23] MEDS: Metoclopramide 10 MG/2 ML VIAL IVP PRN ×2 (03:27→09:36)
[2021-12-23 04:03] LABS: Basophils % 0.5 %; Eosinophils # 0.2 K/mcL (0.0-0.6); Eosinophils % 1.9 %; Hemoglobin 11.5 g/dL (11.5-15.4); Immature Granulocytes % 0.2 % (0-4); Lymphocytes # 1.9 K/mcL (0.6-4.6); Lymphocytes % 22.4 %; Mean Corpuscular HGB Conc 31.1 g/dL (31.6-35.5); Mean Corpuscular Hemoglobin 26.9 pg (28.0-33.3); Mean Corpuscular Volume 86.7 fL (83.0-100.0); Mean Platelet Volume 9.4 fL (9.4-12.4); Monocytes # 1.2 K/mcL (0.0-1.3); Monocytes % 13.7 %; Neutrophils # 5.2 K/mcL (1.6-8.9); Platelet Count 431 K/mcL (140-400); Red Blood Count 4.27 M/mcL (3.82-4.97); Red Cell Distribution Width 12.5 % (11.5-14.5); Segmented Neutrophils % 61.3 %; White Blood Count 8.4 K/mcL (4.3-11.1)
[2021-12-23 04:19] LABS: BUN/Creatinine Ratio 9 (6-26); Blood Urea Nitrogen 5 mg/dL (6-20); Calcium 8.9 mg/dL (8.6-10.3); Carbon Dioxide 25 mEq/L (23-29); Chloride 103 mEq/L (98-107); Glucose 112 mg/dL (70-105); Magnesium 1.7 mg/dL (1.6-2.6); Osmolality,Calculated 286 (280-300); Phosphorous 4.5 mg/dL (2.7-4.5); Potassium 3.1 mEq/L (3.5-5.1); Sodium 139 mEq/L (136-145); eGFR For African Americans > 60 (> 60); eGFR For Non-African Americans > 60 (> 60)
[2021-12-23] MEDS: *HR* Heparin 5,000 UNIT/ML VIAL SQ SCH ×2 (05:06→17:01)
[2021-12-23] MEDS: Piperacillin/Tazobactam 3.375 GM in 0.9 % Sodium Chloride Mini Bag 100 ML IVPB SCH ×3 (05:07→19:54)
[2021-12-23] MEDS: Ondansetron 4 MG/2 ML VIAL IVP PRN ×2 (06:11→19:59)
[2021-12-23] MEDS: Insulin DETEMIR 100 UNIT/ML X5UNITS SUBQ SCH ×2 (07:58→19:56)
[2021-12-23] MEDS: Insulin LISPRO 300 UNITS/3 ML VIAL SUBQ SCH ×3 (08:53→16:41)
[2021-12-23] MEDS ORDERED: *HR* OxyCODONE/APAP 10/325 TABLET PO PRN (11:49)
[2021-12-23] MEDS ORDERED: *HR* OxyCODONE/APAP 5/325 TABLET PO PRN (11:49)
[2021-12-23] MEDS: *HR* HYDROmorphone 2 MG/ML SYRINGE IVP PRN (11:53)
[2021-12-23] MEDS ORDERED: Ketorolac 30 MG/ML VIAL IVP ONE (12:14)
[2021-12-23] MEDS ORDERED: Scopolamine Patch 1.5 MG PATCH.TD72 TD SCH (12:15)
[2021-12-23] MEDS: lisinopriL 10 MG TABLET PO SCH (15:14)
[2021-12-23] MEDS: DAPTOmycin 500 MG in 0.9 % Sodium Chloride 100 ML IVPB SCH (15:56)
[2021-12-23] MEDS: Acetaminophen IV 1,000 MG/100 ML BAG IVPB SCH (17:01)
[2021-12-23] MEDS: Metoclopramide 10 MG/2 ML VIAL IVP SCH (17:19)
[2021-12-23] MEDS: Ketorolac 30 MG/ML VIAL IVP SCH (19:45)
[2021-12-23] MEDS: traZODone 50 MG TABLET PO SCH (19:46)
[2021-12-23] MEDS: *HR* OxyCODONE Immed Rel 5 MG TABLET PO PRN (19:46)
[2021-12-23] MEDS: QUEtiapine Fumarate 300 MG TABLET PO SCH (19:46)
[2021-12-23] MEDS: PARoxetine 10 MG TABLET PO SCH (19:53)
[2021-12-24] MEDS: Metoclopramide 10 MG/2 ML VIAL IVP SCH ×4 (00:09→17:27)
[2021-12-24] MEDS: Acetaminophen IV 1,000 MG/100 ML BAG IVPB SCH ×4 (00:10→17:29)
[2021-12-24 02:15] LABS: BUN/Creatinine Ratio 8 (6-26); Blood Urea Nitrogen 4 mg/dL (6-20); Calcium 8.6 mg/dL (8.6-10.3); Carbon Dioxide 25 mEq/L (23-29); Chloride 104 mEq/L (98-107); Glucose 132 mg/dL (70-105); Magnesium 1.6 mg/dL (1.6-2.6); Osmolality,Calculated 287 (280-300); Phosphorous 3.6 mg/dL (2.7-4.5); Potassium 3.5 mEq/L (3.5-5.1); Sodium 139 mEq/L (136-145); eGFR For African Americans > 60 (> 60); eGFR For Non-African Americans > 60 (> 60)
[2021-12-24] MEDS: *HR* Heparin 5,000 UNIT/ML VIAL SQ SCH ×2 (06:23→17:27)
[2021-12-24] MEDS: *HR* OxyCODONE Immed Rel 5 MG TABLET PO PRN ×2 (06:24→14:39)
[2021-12-24] MEDS: Piperacillin/Tazobactam 3.375 GM in 0.9 % Sodium Chloride Mini Bag 100 ML IVPB SCH ×3 (06:24→21:37)
[2021-12-24] MEDS ORDERED: Iopamidol - 370 500 ML MLS IVP ONE (06:52)
[2021-12-24] MEDS: Insulin LISPRO 300 UNITS/3 ML VIAL SUBQ SCH ×3 (07:56→17:28)
[2021-12-24] MEDS: *HR* HYDROmorphone 2 MG/ML SYRINGE IVP PRN ×2 (07:56→17:26)
[2021-12-24] MEDS: Ketorolac 30 MG/ML VIAL IVP SCH ×2 (07:57→21:39)
[2021-12-24] MEDS: lisinopriL 10 MG TABLET PO SCH (08:01)
[2021-12-24] MEDS: PARoxetine 10 MG TABLET PO SCH ×2 (08:02→21:38)
[2021-12-24] MEDS ORDERED: Prochlorperazine 10 MG/2 ML VIAL IVP STA (08:28)
[2021-12-24] MEDS ORDERED: Haloperidol Lactate 5 MG/ML VIAL IVP STA (08:28)
[2021-12-24] MEDS: Insulin DETEMIR 100 UNIT/ML X5UNITS SUBQ SCH ×2 (09:46→21:40)
[2021-12-24] MEDS ORDERED: Iopamidol - 370 500 ML MLS PO ONE (09:53)
[2021-12-24 10:59] LABS: Basophils % 0.4 %; Eosinophils # 0.1 K/mcL (0.0-0.6); Eosinophils % 0.7 %; Hemoglobin 10.7 g/dL (11.5-15.4); Immature Granulocytes % 0.5 % (0-4); Lymphocytes # 1.2 K/mcL (0.6-4.6); Mean Corpuscular HGB Conc 31.5 g/dL (31.6-35.5); Mean Corpuscular Hemoglobin 27.2 pg (28.0-33.3); Mean Corpuscular Volume 86.3 fL (83.0-100.0); Mean Platelet Volume 8.8 fL (9.4-12.4); Monocytes # 0.7 K/mcL (0.0-1.3); Monocytes % 7.4 %; Neutrophils # 7.8 K/mcL (1.6-8.9); Platelet Count 412 K/mcL (140-400); Red Blood Count 3.94 M/mcL (3.82-4.97); Red Cell Distribution Width 12.5 % (11.5-14.5); White Blood Count 9.9 K/mcL (4.3-11.1)
[2021-12-24] MEDS ORDERED: tiZANidine 4 MG TABLET PO PRN (14:20)
[2021-12-24] MEDS: DAPTOmycin 500 MG in 0.9 % Sodium Chloride 100 ML IVPB SCH (14:40)
[2021-12-24] MEDS: QUEtiapine Fumarate 300 MG TABLET PO SCH (21:39)
[2021-12-24] MEDS: traZODone 50 MG TABLET PO SCH (21:39)
[2021-12-25] MEDS: Metoclopramide 10 MG/2 ML VIAL IVP SCH ×4 (00:19→18:45)
[2021-12-25] MEDS: Acetaminophen IV 1,000 MG/100 ML BAG IVPB SCH ×4 (00:19→18:47)
[2021-12-25 02:06] LABS: Basophils % 0.5 %; Eosinophils # 0.3 K/mcL (0.0-0.6); Eosinophils % 4.9 %; Hematocrit 33.7 % (35.3-44.9); Hemoglobin 10.4 g/dL (11.5-15.4); Immature Granulocytes % 0.5 % (0-4); Lymphocytes # 1.8 K/mcL (0.6-4.6); Lymphocytes % 27.1 %; Mean Corpuscular HGB Conc 30.9 g/dL (31.6-35.5); Mean Corpuscular Hemoglobin 26.7 pg (28.0-33.3); Mean Corpuscular Volume 86.4 fL (83.0-100.0); Mean Platelet Volume 8.9 fL (9.4-12.4); Monocytes # 0.8 K/mcL (0.0-1.3); Monocytes % 11.9 %; Neutrophils # 3.6 K/mcL (1.6-8.9); Platelet Count 434 K/mcL (140-400); Red Cell Distribution Width 12.5 % (11.5-14.5); Segmented Neutrophils % 55.1 %; White Blood Count 6.6 K/mcL (4.3-11.1)
[2021-12-25 02:27] LABS: Albumin 3.1 g/dL (3.5-5.7); BUN/Creatinine Ratio 8 (6-26); Blood Urea Nitrogen 4 mg/dL (6-20); Calcium 8.6 mg/dL (8.6-10.3); Carbon Dioxide 24 mEq/L (23-29); Chloride 104 mEq/L (98-107); Glucose 114 mg/dL (70-105); Magnesium 1.4 mg/dL (1.6-2.6); Osmolality,Calculated 282 (280-300); Phosphorous 3.6 mg/dL (2.7-4.5); Potassium 3.3 mEq/L (3.5-5.1); Sodium 137 mEq/L (136-145); Triglycerides 157 mg/dL (< 150); eGFR For African Americans > 60 (> 60); eGFR For Non-African Americans > 60 (> 60)
[2021-12-25] MEDS: *HR* HYDROmorphone 2 MG/ML SYRINGE IVP PRN ×3 (03:33→15:45)
[2021-12-25] MEDS: *HR* Heparin 5,000 UNIT/ML VIAL SQ SCH ×2 (05:38→17:23)
[2021-12-25] MEDS: Piperacillin/Tazobactam 3.375 GM in 0.9 % Sodium Chloride Mini Bag 100 ML IVPB SCH ×3 (05:39→21:04)
[2021-12-25] MEDS: Ketorolac 30 MG/ML VIAL IVP SCH ×2 (08:07→21:54)
[2021-12-25] MEDS: Ondansetron 4 MG/2 ML VIAL IVP PRN (08:11)
[2021-12-25] MEDS: PARoxetine 10 MG TABLET PO SCH ×2 (08:12→21:54)
[2021-12-25] MEDS: lisinopriL 10 MG TABLET PO SCH (08:12)
[2021-12-25] MEDS: Insulin DETEMIR 100 UNIT/ML X5UNITS SUBQ SCH ×2 (08:15→21:54)
[2021-12-25] MEDS: *HR* OxyCODONE Immed Rel 5 MG TABLET PO PRN ×2 (08:16→14:43)
[2021-12-25] MEDS: Insulin LISPRO 300 UNITS/3 ML VIAL SUBQ SCH ×3 (08:17→16:20)
[2021-12-25] MEDS ORDERED: Iopamidol - 370 500 ML MLS IVP ONE (08:26)
[2021-12-25] MEDS ORDERED: 0.9 % Sodium Chloride 1,000 ML IVC SCH (08:30)
[2021-12-25] MEDS ORDERED: Iopamidol - 370 500 ML MLS PO ONE (09:16)
[2021-12-25] MEDS ORDERED: Lidocaine -MPF 1% 5 ML AMPUL INFILT ONE (13:43)
[2021-12-25] MEDS ORDERED: D10% in Water 500 ML IVC PRN (14:25)
[2021-12-25] MEDS ORDERED: Famotidine 20 MG/2 ML VIAL IVP ONE (20:55)
[2021-12-25] MEDS: traZODone 50 MG TABLET PO SCH (21:54)
[2021-12-25] MEDS: QUEtiapine Fumarate 300 MG TABLET PO SCH (21:54)
[2021-12-25] MEDS ORDERED: *HR* Midazolam HCl 2 MG/2 ML VIAL ONE (22:17)
[2021-12-25] MEDS ORDERED: *HR* Propofol 200 MG/20 ML VIAL IVP ONE ×2 (22:17→23:54)
[2021-12-25] MEDS ORDERED: *HR* FentaNYL (PF) 100 MCG/2 ML VIAL ONE (22:17)
[2021-12-25] MEDS ORDERED: Lidocaine HCL 4 ML Topical Solution (Laryng-O-Jet Kit Sterile Pak) TP ONE (22:18)
[2021-12-25] MEDS ORDERED: *HR* Rocuronium Bromide 50 MG/5 ML VIAL ONE ×2 (22:21→23:33)
[2021-12-25] MEDS ORDERED: Lidocaine -MPF 2% 5 ML VIAL ONE (22:21)
[2021-12-25] MEDS ORDERED: Ondansetron 4 MG/2 ML VIAL IVP PRN (22:27)
[2021-12-25] MEDS ORDERED: *HR* HYDROmorphone PF 0.5 MG/0.5 ML SYRINGE IVP PRN (22:27)
[2021-12-25] MEDS ORDERED: Ondansetron 4 MG/2 ML VIAL ONE (23:13)
[2021-12-25] MEDS ORDERED: *HR* HYDROMORPHONE 2 MG/ML VIAL ONE (23:24)
[2021-12-25] MEDS ORDERED: Sugammadex Sodium 200 MG/2 ML VIAL IV ONE (23:24)
[2021-12-26] MEDS ORDERED: *HR* HYDROMORPHONE 2 MG/ML VIAL ONE (00:48)
[2021-12-26] MEDS ORDERED: *HR* Labetalol 20 MG/4 ML SYRINGE IVP ONE (00:52)
[2021-12-26] MEDS ORDERED: Ringers Solution, Lactated 1,000 ML ONE (01:52)
[2021-12-26] MEDS ORDERED: Ondansetron 4 MG/2 ML VIAL IVP PRN (02:15)
[2021-12-26] MEDS ORDERED: *HR* OxyCODONE Immed Rel 5 MG TABLET PO PRN (02:15)
[2021-12-26] MEDS ORDERED: tiZANidine 4 MG TABLET PO PRN (02:15)
[2021-12-26] MEDS ORDERED: D5% in Water 1,000 ML IVC PRN (02:15)
[2021-12-26] MEDS ORDERED: Naloxone 0.4 MG/ML INJ IVP PRN (02:15)
[2021-12-26] MEDS ORDERED: D10% in Water 500 ML IVC PRN (02:15)
[2021-12-26] MEDS ORDERED: *HR* Dextrose 50 % in Water (Syg) 50 ML SYRINGE IVP PRN (02:15)
[2021-12-26] MEDS ORDERED: Dextrose Gel 15 GM/37.5 ML TUBE PO PRN ×2 (02:15)
[2021-12-26] MEDS ORDERED: Lidocaine -MPF 1% 5 ML AMPUL INFILT ONE (02:15)
[2021-12-26] MEDS: Acetaminophen IV 1,000 MG/100 ML BAG IVPB SCH ×5 (02:20→23:29)
[2021-12-26] MEDS: Metoclopramide 10 MG/2 ML VIAL IVP SCH ×5 (02:21→23:29)
[2021-12-26] MEDS ORDERED: *HR* HYDROmorphone (PF) 1 MG/ML SYRINGE IVP PRN ×2 (02:30→09:54)
[2021-12-26] MEDS: Fluconazole 400 MG/200 ML 400 MG/200 ML BAG IVPB SCH (02:49)
[2021-12-26] MEDS: Piperacillin/Tazobactam 3.375 GM in 0.9 % Sodium Chloride Mini Bag 100 ML IVPB SCH ×3 (05:43→21:19)
[2021-12-26] MEDS: *HR* Heparin 5,000 UNIT/ML VIAL SQ SCH ×2 (05:44→17:30)
[2021-12-26 06:40] LABS: Alanine Aminotransferase 7 Units/L (7-52); Albumin 2.6 g/dL (3.5-5.7); Alkaline Phosphatase 62 Units/L (34-104); Aspartate Amino Transferase 10 Units/L (13-39); BUN/Creatinine Ratio 11 (6-26); Bilirubin,Total 0.3 mg/dL (0.3-1.0); Blood Urea Nitrogen 4 mg/dL (6-20); Calcium 7.5 mg/dL (8.6-10.3); Carbon Dioxide 23 mEq/L (23-29); Chloride 105 mEq/L (98-107); Globulin 2.6 g/dL (2.4-3.5); Glucose 153 mg/dL (70-105); Magnesium 1.3 mg/dL (1.6-2.6); Osmolality,Calculated 282 (280-300); Phosphorous 3.1 mg/dL (2.7-4.5); Potassium 3.9 mEq/L (3.5-5.1); Sodium 136 mEq/L (136-145); Total Protein 5.2 g/dL (6.4-8.9); eGFR For African Americans > 60 (> 60); eGFR For Non-African Americans > 60 (> 60)
[2021-12-26] MEDS: Insulin LISPRO 300 UNITS/3 ML VIAL SUBQ SCH ×3 (08:10→17:56)
[2021-12-26] MEDS: Ketorolac 30 MG/ML VIAL IVP SCH ×2 (08:11→21:22)
[2021-12-26] MEDS: lisinopriL 10 MG TABLET PO SCH (08:27)
[2021-12-26] MEDS: Insulin DETEMIR 100 UNIT/ML X5UNITS SUBQ SCH ×2 (08:27→21:18)
[2021-12-26] MEDS: PARoxetine 10 MG TABLET PO SCH ×2 (08:27→20:12)
[2021-12-26] MEDS: Scopolamine Patch 1.5 MG PATCH.TD72 TD SCH (12:08)
[2021-12-26] MEDS: *HR* HYDROmorphone (PF) 1 MG/ML SYRINGE IVP PRN ×3 (15:17→23:28)
[2021-12-26] MEDS ORDERED: Fat Emulsion 250 ML IVPB SCH (17:00)
[2021-12-26] MEDS ORDERED: Clinimix E 5%-15% SOLUTION 2,000 ML with MVI, adult with vitamin K 10 ML IVC SCH ×2 (17:00)
[2021-12-26] MEDS: Fat Emulsion 250 ML IVPB SCH (17:30)
[2021-12-26] MEDS: QUEtiapine Fumarate 300 MG TABLET PO SCH (20:12)
[2021-12-26] MEDS: traZODone 50 MG TABLET PO SCH (21:23)
[2021-12-27] MEDS: *HR* HYDROmorphone (PF) 1 MG/ML SYRINGE IVP PRN ×5 (03:32→20:37)
[2021-12-27] MEDS: Insulin LISPRO 300 UNITS/3 ML VIAL SUBQ SCH ×6 (03:38→20:38)
[2021-12-27 05:19] LABS: Alanine Aminotransferase 6 Units/L (7-52); Albumin 2.7 g/dL (3.5-5.7); Albumin/Globulin Ratio 0.8 (1.1-2.2); Alkaline Phosphatase 66 Units/L (34-104); Aspartate Amino Transferase 8 Units/L (13-39); BUN/Creatinine Ratio 17 (6-26); Bilirubin,Total 0.3 mg/dL (0.3-1.0); Blood Urea Nitrogen 6 mg/dL (6-20); Calcium 7.3 mg/dL (8.6-10.3); Carbon Dioxide 26 mEq/L (23-29); Chloride 102 mEq/L (98-107); Globulin 3.2 g/dL (2.4-3.5); Glucose 191 mg/dL (70-105); Magnesium 1.6 mg/dL (1.6-2.6); Osmolality,Calculated 289 (280-300); Phosphorous 2.1 mg/dL (2.7-4.5); Potassium 3.6 mEq/L (3.5-5.1); Sodium 138 mEq/L (136-145); Total Protein 5.9 g/dL (6.4-8.9); eGFR For African Americans > 60 (> 60); eGFR For Non-African Americans > 60 (> 60)
[2021-12-27] MEDS: Piperacillin/Tazobactam 3.375 GM in 0.9 % Sodium Chloride Mini Bag 100 ML IVPB SCH ×3 (06:06→22:46)
[2021-12-27] MEDS: Metoclopramide 10 MG/2 ML VIAL IVP SCH ×3 (06:07→18:19)
[2021-12-27] MEDS: Acetaminophen IV 1,000 MG/100 ML BAG IVPB SCH ×3 (06:08→18:18)
[2021-12-27] MEDS: *HR* Heparin 5,000 UNIT/ML VIAL SQ SCH ×2 (06:08→18:19)
[2021-12-27] MEDS: Ketorolac 30 MG/ML VIAL IVP SCH ×2 (07:38→20:25)
[2021-12-27] MEDS: PARoxetine 10 MG TABLET PO SCH ×2 (07:38→20:28)
[2021-12-27] MEDS: lisinopriL 10 MG TABLET PO SCH (07:39)
[2021-12-27] MEDS: Insulin DETEMIR 100 UNIT/ML X5UNITS SUBQ SCH ×2 (07:39→20:37)
[2021-12-27] MEDS: Fluconazole 400 MG/200 ML 400 MG/200 ML BAG IVPB SCH (07:40)
[2021-12-27] MEDS ORDERED: Potassium Phosphate 44 MEQ in 0.9 % Sodium Chloride 250 ML IVPB ONE (07:40)
[2021-12-27] MEDS: Fat Emulsion 250 ML IVPB SCH (16:41)
[2021-12-27] MEDS ORDERED: Clinimix E 5%-15% SOLUTION 2,000 ML with MVI, adult with vitamin K 10 ML IVC SCH ×2 (17:00)
[2021-12-27] MEDS: Ondansetron 4 MG/2 ML VIAL IVP PRN (20:25)
[2021-12-27] MEDS: QUEtiapine Fumarate 300 MG TABLET PO SCH (20:27)
[2021-12-27] MEDS: traZODone 50 MG TABLET PO SCH (20:27)
[2021-12-27 23:10] LABS: Hematocrit 32.2 % (35.3-44.9); Hemoglobin 10.1 g/dL (11.5-15.4)
[2021-12-28] MEDS: Metoclopramide 10 MG/2 ML VIAL IVP SCH ×4 (00:30→18:39)
[2021-12-28] MEDS: Acetaminophen IV 1,000 MG/100 ML BAG IVPB SCH ×2 (00:31→06:07)
[2021-12-28] MEDS: *HR* HYDROmorphone (PF) 1 MG/ML SYRINGE IVP PRN ×6 (00:32→23:06)
[2021-12-28] MEDS: *HR* Heparin 5,000 UNIT/ML VIAL SQ SCH ×2 (04:38→18:39)
[2021-12-28] MEDS: Insulin LISPRO 300 UNITS/3 ML VIAL SUBQ SCH ×4 (04:39→17:13)
[2021-12-28 05:15] LABS: Basophils % 0.3 %; Eosinophils # 1.6 K/mcL (0.0-0.6); Eosinophils % 15.1 %; Hematocrit 30.5 % (35.3-44.9); Hemoglobin 9.5 g/dL (11.5-15.4); Immature Granulocytes % 0.5 % (0-4); Mean Corpuscular HGB Conc 31.1 g/dL (31.6-35.5); Mean Corpuscular Hemoglobin 27.5 pg (28.0-33.3); Mean Corpuscular Volume 88.2 fL (83.0-100.0); Mean Platelet Volume 9.2 fL (9.4-12.4); Monocytes # 0.7 K/mcL (0.0-1.3); Monocytes % 6.7 %; Platelet Count 419 K/mcL (140-400); Red Blood Count 3.46 M/mcL (3.82-4.97); Red Cell Distribution Width 13.2 % (11.5-14.5); Segmented Neutrophils % 58.4 %
[2021-12-28 05:16] LABS: Neutrophils # 6.3 K/mcL (1.6-8.9); White Blood Count 10.7 K/mcL (4.3-11.1)
[2021-12-28 05:36] LABS: Magnesium 1.6 mg/dL (1.6-2.6); Phosphorous 3.1 mg/dL (2.7-4.5)
[2021-12-28 05:37] LABS: BUN/Creatinine Ratio 15 (6-26); Blood Urea Nitrogen 7 mg/dL (6-20); Carbon Dioxide 27 mEq/L (23-29); Chloride 101 mEq/L (98-107); Glucose 205 mg/dL (70-105); Osmolality,Calculated 284 (280-300); Potassium 3.2 mEq/L (3.5-5.1); Sodium 135 mEq/L (136-145); eGFR For African Americans > 60 (> 60); eGFR For Non-African Americans > 60 (> 60)
[2021-12-28] MEDS: Piperacillin/Tazobactam 3.375 GM in 0.9 % Sodium Chloride Mini Bag 100 ML IVPB SCH ×2 (06:06→13:57)
[2021-12-28] MEDS: PARoxetine 10 MG TABLET PO SCH ×2 (07:55→23:04)
[2021-12-28] MEDS: lisinopriL 10 MG TABLET PO SCH (07:55)
[2021-12-28] MEDS: Ketorolac 30 MG/ML VIAL IVP SCH (07:56)
[2021-12-28] MEDS: Fluconazole 400 MG/200 ML 400 MG/200 ML BAG IVPB SCH (08:04)
[2021-12-28] MEDS: Insulin DETEMIR 100 UNIT/ML X5UNITS SUBQ SCH (09:20)
[2021-12-28 10:11] LABS: Estimated Average Glucose 246 mg/dl; Hemoglobin A1C 10.2 %
[2021-12-28] MEDS ORDERED: Acetaminophen 325 MG TABLET PO PRN (12:00)
[2021-12-28] MEDS ORDERED: Clinimix E 5%-20% SOLUTION 2,000 ML with MVI, adult with vitamin K 10 ML IVC SCH (17:00)
[2021-12-28] MEDS ORDERED: Fat Emulsion 250 ML IVPB SCH (17:00)
[2021-12-28] MEDS: traZODone 50 MG TABLET PO SCH (23:05)
[2021-12-28] MEDS: QUEtiapine Fumarate 300 MG TABLET PO SCH (23:05)
[2021-12-29] MEDS: Metoclopramide 10 MG/2 ML VIAL IVP SCH ×3 (01:23→11:01)
[2021-12-29] MEDS: Piperacillin/Tazobactam 3.375 GM in 0.9 % Sodium Chloride Mini Bag 100 ML IVPB SCH ×4 (01:24→20:18)
[2021-12-29] MEDS: Insulin LISPRO 300 UNITS/3 ML VIAL SUBQ SCH ×7 (01:26→20:28)
[2021-12-29] MEDS: *HR* HYDROmorphone (PF) 1 MG/ML SYRINGE IVP PRN ×4 (05:08→20:18)
[2021-12-29] MEDS: *HR* Heparin 5,000 UNIT/ML VIAL SQ SCH ×2 (06:44→17:25)
[2021-12-29] MEDS: lisinopriL 10 MG TABLET PO SCH (09:05)
[2021-12-29] MEDS: PARoxetine 10 MG TABLET PO SCH ×2 (09:12→20:17)
[2021-12-29] MEDS: Fluconazole 400 MG/200 ML 400 MG/200 ML BAG IVPB SCH (09:14)
[2021-12-29] MEDS: Insulin DETEMIR 100 UNIT/ML X5UNITS SUBQ SCH ×3 (09:18→23:40)
[2021-12-29 10:07] LABS: Magnesium 1.6 mg/dL (1.6-2.6); Phosphorous 6.3 mg/dL (2.7-4.5)
[2021-12-29 10:52] LABS: Basophils % 0.3 %; Eosinophils # 1.5 K/mcL (0.0-0.6); Eosinophils % 15.7 %; Hematocrit 28.2 % (35.3-44.9); Hemoglobin 8.9 g/dL (11.5-15.4); Immature Granulocytes % 0.4 % (0-4); Lymphocytes # 1.6 K/mcL (0.6-4.6); Mean Corpuscular HGB Conc 31.6 g/dL (31.6-35.5); Mean Corpuscular Hemoglobin 27.6 pg (28.0-33.3); Mean Platelet Volume 9.1 fL (9.4-12.4); Monocytes # 0.7 K/mcL (0.0-1.3); Platelet Count 380 K/mcL (140-400); Red Blood Count 3.22 M/mcL (3.82-4.97); Red Cell Distribution Width 13.1 % (11.5-14.5); Segmented Neutrophils % 59.6 %; White Blood Count 9.5 K/mcL (4.3-11.1)
[2021-12-29 10:54] LABS: Mean Corpuscular Volume 87.6 fL (83.0-100.0); Neutrophils # 5.7 K/mcL (1.6-8.9)
[2021-12-29] MEDS: Scopolamine Patch 1.5 MG PATCH.TD72 TD SCH (11:02)
[2021-12-29 11:09] LABS: Platelet Estimate Normal (Normal)
[2021-12-29 12:07] LABS: Blood Urea Nitrogen 4 mg/dL (6-20); Calcium 4.8 mg/dL (8.6-10.3); Carbon Dioxide 20 mEq/L (23-29); Chloride 118 mEq/L (98-107); Glucose 164 mg/dL (70-105); Osmolality,Calculated 293 (280-300); Potassium 2.2 mEq/L (3.5-5.1); Sodium 141 mEq/L (136-145)
[2021-12-29 12:58] LABS: Calcium 8.4 mg/dL (8.6-10.3); Potassium 3.7 mEq/L (3.5-5.1)
[2021-12-29] MEDS: *HR* OxyCODONE Immed Rel 5 MG TABLET PO PRN (18:06)
[2021-12-29] MEDS: Ondansetron 4 MG/2 ML VIAL IVP PRN (20:17)
[2021-12-29] MEDS: traZODone 50 MG TABLET PO SCH (20:18)
[2021-12-29] MEDS: QUEtiapine Fumarate 300 MG TABLET PO SCH (20:18)
[2021-12-30] MEDS: *HR* HYDROmorphone (PF) 1 MG/ML SYRINGE IVP PRN ×2 (00:43→06:39)
[2021-12-30] MEDS: Insulin LISPRO 300 UNITS/3 ML VIAL SUBQ SCH ×3 (01:09→08:35)
[2021-12-30] MEDS: *HR* OxyCODONE Immed Rel 5 MG TABLET PO PRN ×2 (05:25→11:34)
[2021-12-30] MEDS: Piperacillin/Tazobactam 3.375 GM in 0.9 % Sodium Chloride Mini Bag 100 ML IVPB SCH (05:25)
[2021-12-30] MEDS: *HR* Heparin 5,000 UNIT/ML VIAL SQ SCH (05:26)
[2021-12-30 06:16] LABS: Hematocrit 31.7 % (35.3-44.9); Hemoglobin 9.7 g/dL (11.5-15.4); Mean Corpuscular HGB Conc 30.6 g/dL (31.6-35.5); Mean Corpuscular Hemoglobin 26.9 pg (28.0-33.3); Mean Corpuscular Volume 88.1 fL (83.0-100.0); Platelet Count 416 K/mcL (140-400); Red Cell Distribution Width 13.2 % (11.5-14.5); White Blood Count 9.9 K/mcL (4.3-11.1)
[2021-12-30 06:33] LABS: BUN/Creatinine Ratio 10 (6-26); Blood Urea Nitrogen 5 mg/dL (6-20); Calcium 8.6 mg/dL (8.6-10.3); Carbon Dioxide 29 mEq/L (23-29); Chloride 101 mEq/L (98-107); Glucose 153 mg/dL (70-105); Magnesium 1.4 mg/dL (1.6-2.6); Osmolality,Calculated 284 (280-300); Phosphorous 4.2 mg/dL (2.7-4.5); Potassium 3.5 mEq/L (3.5-5.1); Sodium 137 mEq/L (136-145)
[2021-12-30 06:36] LABS: Eosinophils # 1.8 K/mcL (0.0-0.6); Monocytes # 0.4 K/mcL (0.0-1.3); Neutrophils # 4.8 K/mcL (1.6-8.9)
[2021-12-30] MEDS: Fluconazole 400 MG/200 ML 400 MG/200 ML BAG IVPB SCH (08:36)
[2021-12-30] MEDS: Insulin DETEMIR 100 UNIT/ML X5UNITS SUBQ SCH (08:36)
[2021-12-30] MEDS: PARoxetine 10 MG TABLET PO SCH (08:38)
[2021-12-30] MEDS ORDERED: lisinopriL 20 MG TABLET PO SCH (09:00)
[2021-12-30 11:15] VITALS: BP 149/80; PULSE 78; TEMP 98.3; O2SAT 96
== END 2021-12-30 13:22 | disposition home health service (06) | DRG 329 ==
LOC: EMEROOARM 09:09 → 3ANU 09:09 → SUATTDRO 12-24 14:06
PROVIDERS: ADMIT Internal Medicine; ATTEND Family Medicine

== ENCOUNTER 2022-01-02 13:04 | Inpatient (IN) ==
[2022-01-02] MEDS ORDERED: 0.9 % Sodium Chloride 2,000 ML IV ONE (13:45)
[2022-01-02] MEDS ORDERED: Iopamidol - 370 500 ML MLS IVP ONE (13:45)
[2022-01-02] MEDS ORDERED: Morphine Sulfate 2 MG/ML SYRINGE IVP ONE ×3 (13:45→20:54)
[2022-01-02] MEDS ORDERED: Ondansetron 4 MG/2 ML VIAL IVP PRN (13:45)
[2022-01-02 16:06] LABS: Basophils % 0.5 %; Eosinophils % 0.1 %; Hematocrit 35.2 % (35.3-44.9); Immature Granulocytes % 0.7 % (0-4); Lymphocytes % 11.3 %; Mean Corpuscular Hemoglobin 27.2 pg (28.0-33.3); Mean Corpuscular Volume 82.6 fL (83.0-100.0); Mean Platelet Volume 8.9 fL (9.4-12.4); Monocytes # 0.5 K/mcL (0.0-1.3); Monocytes % 5.5 %; Neutrophils # 7.1 K/mcL (1.6-8.9); Platelet Count 618 K/mcL (140-400); Red Blood Count 4.26 M/mcL (3.82-4.97); Red Cell Distribution Width 13.2 % (11.5-14.5); Segmented Neutrophils % 81.9 %; White Blood Count 8.7 K/mcL (4.3-11.1)
[2022-01-02 16:07] LABS: Hemoglobin 11.6 g/dL (11.5-15.4)
[2022-01-02 16:12] LABS: INR 1.5; Prothrombin Time 16.6 Seconds (9.4-12.1)
[2022-01-02 16:15] LABS: Activated Partial Thrombo Time 36.4 Seconds (26.0-36.0)
[2022-01-02 16:27] LABS: Alanine Aminotransferase 15 Units/L (7-52); Albumin 3.8 g/dL (3.5-5.7); Albumin/Globulin Ratio 0.8 (1.1-2.2); Alkaline Phosphatase 75 Units/L (34-104); Aspartate Amino Transferase 19 Units/L (13-39); BUN/Creatinine Ratio 12 (6-26); Bilirubin,Direct 0.1 mg/dL (0.0-0.2); Bilirubin,Indirect 0.3 mg/dL (0.0-1.0); Bilirubin,Total 0.4 mg/dL (0.3-1.0); Blood Urea Nitrogen 8 mg/dL (6-20); Calcium 9.3 mg/dL (8.6-10.3); Carbon Dioxide 20 mEq/L (23-29); Chloride 94 mEq/L (98-107); Globulin 4.9 g/dL (2.4-3.5); Glucose 204 mg/dL (70-105); Lipase 11 Units/L (11-82); Osmolality,Calculated 278 (280-300); Potassium 3.4 mEq/L (3.5-5.1); Sodium 132 mEq/L (136-145); Total Protein 8.7 g/dL (6.4-8.9); Troponin I < 0.03 ng/mL (< 0.04)
[2022-01-02] MEDS ORDERED: Piperacillin/Tazobactam 3.375 GM in 0.9 % Sodium Chloride Mini Bag 100 ML IVPB ONE (21:00)
[2022-01-02] MEDS ORDERED: Acetaminophen 325 MG TABLET PO PRN (21:22)
[2022-01-02] MEDS ORDERED: Naloxone 0.4 MG/ML INJ IVP PRN (21:22)
[2022-01-02 21:32] LABS: Bilirubin,Urine Negative (Negative); Blood,Urine Negative (Negative); Clarity,Urine Clear (Clear); Color,Urine Colorless (Yellow); Glucose,Urine (UA) Normal (Normal); Ketones,Urine 60 mg/dL (Negative); Leukocyte Esterase,Urine Negative (Negative); Nitrite,Urine Negative (Negative); PH,Urine 7.5 pH Units (5.0-8.0); Protein,Urine Negative (Neg-Trace); Specific Gravity,Urine 1.024 (1.010-1.025); Urobilinogen,Urine Normal (Normal)
[2022-01-02] MEDS ORDERED: Vancomycin 1,500 MG/265 ML IV.SOLN IVPB ONE (22:00)
[2022-01-02] MEDS ORDERED: Dextrose Gel 15 GM/37.5 ML TUBE PO PRN ×2 (23:27)
[2022-01-02] MEDS ORDERED: D5% in Water 1,000 ML IVC PRN (23:27)
[2022-01-02] MEDS ORDERED: *HR* Dextrose 50 % in Water (Syg) 50 ML SYRINGE IVP PRN (23:27)
[2022-01-03] MEDS: 0.9 % Sodium Chloride 1,000 ML IVC SCH ×3 (00:21→22:49)
[2022-01-03] MEDS: MetroNIDAZOLE 500 MG/100 ML 500 MG/100 ML BAG IVPB SCH ×4 (00:21→23:49)
[2022-01-03] MEDS: *HR* HYDROmorphone (PF) 1 MG/ML SYRINGE IVP PRN ×6 (00:22→21:46)
[2022-01-03] MEDS: Piperacillin/Tazobactam 3.375 GM in 0.9 % Sodium Chloride Mini Bag 100 ML IVPB SCH ×4 (00:22→23:49)
[2022-01-03 02:46] LABS: Bilirubin,Urine Negative (Negative); Blood,Urine Negative (Negative); Clarity,Urine Clear (Clear); Color,Urine Colorless (Yellow); Glucose,Urine (UA) Normal (Normal); Ketones,Urine 20 mg/dL (Negative); Leukocyte Esterase,Urine Negative (Negative); Nitrite,Urine Negative (Negative); PH,Urine 6.5 pH Units (5.0-8.0); Protein,Urine Negative (Neg-Trace); Specific Gravity,Urine > 1.030 (1.010-1.025); Urobilinogen,Urine Normal (Normal)
[2022-01-03] MEDS: Ondansetron 4 MG/2 ML VIAL IVP PRN ×2 (03:30→21:45)
[2022-01-03] MEDS: Insulin LISPRO 300 UNITS/3 ML VIAL SUBQ SCH ×3 (07:27→19:25)
[2022-01-03] MEDS ORDERED: Vancomycin 1,250 MG/262.5 ML IV.SOLN IVPB SCH (10:00)
[2022-01-03] MEDS: *HR* Heparin 5,000 UNIT/ML VIAL SQ SCH ×2 (15:24→21:46)
[2022-01-04] MEDS: *HR* HYDROmorphone (PF) 1 MG/ML SYRINGE IVP PRN ×5 (03:06→22:21)
[2022-01-04] MEDS: *HR* Heparin 5,000 UNIT/ML VIAL SQ SCH ×3 (05:41→21:26)
[2022-01-04] MEDS: Piperacillin/Tazobactam 3.375 GM in 0.9 % Sodium Chloride Mini Bag 100 ML IVPB SCH ×3 (08:23→23:13)
[2022-01-04] MEDS: 0.9 % Sodium Chloride 1,000 ML IVC SCH ×2 (08:24→18:30)
[2022-01-04] MEDS: MetroNIDAZOLE 500 MG/100 ML 500 MG/100 ML BAG IVPB SCH (08:24)
[2022-01-04] MEDS: Insulin LISPRO 300 UNITS/3 ML VIAL SUBQ SCH ×3 (08:40→18:45)
[2022-01-04] MEDS: lisinopriL 10 MG TABLET PO SCH (08:42)
[2022-01-04] MEDS ORDERED: PARoxetine 10 MG TABLET PO SCH (09:00)
[2022-01-04 12:53] LABS: Basophils # 0.1 K/mcL (0.0-0.2); Basophils % 0.8 %; Eosinophils # 0.4 K/mcL (0.0-0.6); Hematocrit 31.4 % (35.3-44.9); Immature Granulocytes % 0.5 % (0-4); Lymphocytes # 1.8 K/mcL (0.6-4.6); Lymphocytes % 27.7 %; Mean Corpuscular HGB Conc 31.8 g/dL (31.6-35.5); Mean Corpuscular Volume 84.9 fL (83.0-100.0); Mean Platelet Volume 8.7 fL (9.4-12.4); Monocytes # 0.8 K/mcL (0.0-1.3); Monocytes % 11.9 %; Neutrophils # 3.5 K/mcL (1.6-8.9); Platelet Count 528 K/mcL (140-400); Red Cell Distribution Width 13.2 % (11.5-14.5); Segmented Neutrophils % 53.1 %; White Blood Count 6.7 K/mcL (4.3-11.1)
[2022-01-04 13:09] LABS: INR 1.6; Prothrombin Time 17.6 Seconds (9.4-12.1)
[2022-01-04 13:11] LABS: BUN/Creatinine Ratio 4 (6-26); Blood Urea Nitrogen 2 mg/dL (6-20); Calcium 7.8 mg/dL (8.6-10.3); Carbon Dioxide 25 mEq/L (23-29); Chloride 100 mEq/L (98-107); Glucose 119 mg/dL (70-105); Magnesium 1.2 mg/dL (1.6-2.6); Osmolality,Calculated 273 (280-300); Potassium 3.1 mEq/L (3.5-5.1); Sodium 133 mEq/L (136-145)
[2022-01-04 14:05] LABS: Estimated Average Glucose 232 mg/dl; Hemoglobin A1C 9.7 %
[2022-01-04] MEDS: QUEtiapine Fumarate 300 MG TABLET PO SCH (21:26)
[2022-01-04] MEDS: Ondansetron 4 MG/2 ML VIAL IVP PRN (22:20)
[2022-01-05] MEDS: Insulin LISPRO 300 UNITS/3 ML VIAL SUBQ SCH ×4 (00:15→16:49)
[2022-01-05] MEDS: *HR* HYDROmorphone (PF) 1 MG/ML SYRINGE IVP PRN ×2 (02:48→08:28)
[2022-01-05 03:59] LABS: Basophils # 0.1 K/mcL (0.0-0.2); Eosinophils # 0.3 K/mcL (0.0-0.6); Eosinophils % 5.3 %; Hematocrit 31.7 % (35.3-44.9); Immature Granulocytes % 0.5 % (0-4); Lymphocytes # 1.9 K/mcL (0.6-4.6); Lymphocytes % 32.6 %; Mean Corpuscular HGB Conc 31.5 g/dL (31.6-35.5); Mean Corpuscular Hemoglobin 26.6 pg (28.0-33.3); Mean Corpuscular Volume 84.3 fL (83.0-100.0); Mean Platelet Volume 9.2 fL (9.4-12.4); Monocytes # 0.7 K/mcL (0.0-1.3); Monocytes % 11.5 %; Neutrophils # 2.9 K/mcL (1.6-8.9); Platelet Count 503 K/mcL (140-400); Red Blood Count 3.76 M/mcL (3.82-4.97); Red Cell Distribution Width 13.3 % (11.5-14.5); Segmented Neutrophils % 49.1 %; White Blood Count 5.8 K/mcL (4.3-11.1)
[2022-01-05 04:20] LABS: BUN/Creatinine Ratio 4 (6-26); Blood Urea Nitrogen 2 mg/dL (6-20); Calcium 8.1 mg/dL (8.6-10.3); Carbon Dioxide 21 mEq/L (23-29); Chloride 102 mEq/L (98-107); Glucose 155 mg/dL (70-105); Magnesium 1.2 mg/dL (1.6-2.6); Osmolality,Calculated 281 (280-300); Phosphorous 3.1 mg/dL (2.7-4.5); Sodium 136 mEq/L (136-145)
[2022-01-05] MEDS: *HR* Heparin 5,000 UNIT/ML VIAL SQ SCH ×3 (05:32→21:10)
[2022-01-05] MEDS: 0.9 % Sodium Chloride 1,000 ML IVC SCH ×3 (05:51→16:34)
[2022-01-05] MEDS: Piperacillin/Tazobactam 3.375 GM in 0.9 % Sodium Chloride Mini Bag 100 ML IVPB SCH ×3 (08:27→23:46)
[2022-01-05] MEDS: lisinopriL 10 MG TABLET PO SCH (08:28)
[2022-01-05] MEDS: PARoxetine 10 MG TABLET PO SCH ×2 (08:37→21:10)
[2022-01-05] MEDS ORDERED: *HR* HYDROmorphone (PF) 1 MG/ML SYRINGE IVP PRN (10:25)
[2022-01-05] MEDS: Acetaminophen IV 1,000 MG/100 ML BAG IVPB SCH ×2 (17:32→23:45)
[2022-01-05] MEDS: QUEtiapine Fumarate 300 MG TABLET PO SCH (21:10)
[2022-01-05] MEDS: *HR* OxyCODONE Immed Rel 5 MG TABLET PO PRN (21:11)
[2022-01-06] MEDS: *HR* OxyCODONE Immed Rel 5 MG TABLET PO PRN ×2 (04:28→09:46)
[2022-01-06] MEDS: *HR* Heparin 5,000 UNIT/ML VIAL SQ SCH ×3 (05:07→22:16)
[2022-01-06] MEDS: Acetaminophen IV 1,000 MG/100 ML BAG IVPB SCH ×3 (05:20→18:00)
[2022-01-06] MEDS: Insulin LISPRO 300 UNITS/3 ML VIAL SUBQ SCH ×3 (07:50→17:59)
[2022-01-06] MEDS: PARoxetine 10 MG TABLET PO SCH ×2 (07:51→22:18)
[2022-01-06] MEDS: Piperacillin/Tazobactam 3.375 GM in 0.9 % Sodium Chloride Mini Bag 100 ML IVPB SCH ×2 (07:51→17:59)
[2022-01-06] MEDS: lisinopriL 10 MG TABLET PO SCH (07:51)
[2022-01-06] MEDS: 0.9 % Sodium Chloride 1,000 ML IVC SCH (07:52)
[2022-01-06 10:04] LABS: Basophils # 0.1 K/mcL (0.0-0.2); Basophils % 0.8 %; Eosinophils # 0.2 K/mcL (0.0-0.6); Hematocrit 33.6 % (35.3-44.9); Hemoglobin 10.7 g/dL (11.5-15.4); Immature Granulocytes % 0.4 % (0-4); Lymphocytes # 1.4 K/mcL (0.6-4.6); Lymphocytes % 18.4 %; Mean Corpuscular HGB Conc 31.8 g/dL (31.6-35.5); Mean Corpuscular Hemoglobin 26.8 pg (28.0-33.3); Mean Corpuscular Volume 84.2 fL (83.0-100.0); Mean Platelet Volume 8.7 fL (9.4-12.4); Monocytes # 0.7 K/mcL (0.0-1.3); Monocytes % 9.2 %; Platelet Count 551 K/mcL (140-400); Red Blood Count 3.99 M/mcL (3.82-4.97); Red Cell Distribution Width 13.4 % (11.5-14.5); Segmented Neutrophils % 68.2 %; White Blood Count 7.4 K/mcL (4.3-11.1)
[2022-01-06 10:30] LABS: Blood Urea Nitrogen < 2 mg/dL (6-20); Calcium 8.5 mg/dL (8.6-10.3); Carbon Dioxide 22 mEq/L (23-29); Chloride 100 mEq/L (98-107); Glucose 136 mg/dL (70-105); Magnesium 1.5 mg/dL (1.6-2.6); Phosphorous 2.8 mg/dL (2.7-4.5); Potassium 3.5 mEq/L (3.5-5.1); Sodium 133 mEq/L (136-145)
[2022-01-06] MEDS: Ondansetron 4 MG/2 ML VIAL IVP PRN (14:18)
[2022-01-06] MEDS ORDERED: Lidocaine -MPF 2% 5 ML VIAL ONE (17:34)
[2022-01-06] MEDS ORDERED: *HR* FentaNYL (PF) 100 MCG/2 ML VIAL ONE ×2 (17:34→18:42)
[2022-01-06] MEDS ORDERED: *HR* Propofol 200 MG/20 ML VIAL IVP ONE (17:34)
[2022-01-06] MEDS ORDERED: *HR* Succinylcholine 200 MG/10 ML VIAL IVP ONE (17:34)
[2022-01-06] MEDS ORDERED: Ondansetron 4 MG/2 ML VIAL ONE (17:34)
[2022-01-06] MEDS ORDERED: Lidocaine HCL 4 ML Topical Solution (Laryng-O-Jet Kit Sterile Pak) TP ONE (17:36)
[2022-01-06] MEDS ORDERED: CefOXitin 1,000 MG VIAL ONE (17:44)
[2022-01-06] MEDS ORDERED: CefOXitin 2,000 MG VIAL ONE ×2 (17:44→18:28)
[2022-01-06] MEDS ORDERED: Acetaminophen IV 1,000 MG/100 ML BAG IVPB ONE (17:50)
[2022-01-06] MEDS ORDERED: Famotidine 20 MG/2 ML VIAL ONE (17:50)
[2022-01-06] MEDS ORDERED: Pantoprazole 40 MG VIAL IVP SCH (18:00)
[2022-01-06] MEDS ORDERED: *HR* HYDROmorphone PF 0.5 MG/0.5 ML SYRINGE IVP PRN (19:12)
[2022-01-06] MEDS ORDERED: D5% in Water 1,000 ML IVC PRN (20:02)
[2022-01-06] MEDS ORDERED: Naloxone 0.4 MG/ML INJ IVP PRN (20:02)
[2022-01-06] MEDS ORDERED: 0.9 % Sodium Chloride 1,000 ML IVC SCH (20:02)
[2022-01-06] MEDS ORDERED: *HR* Dextrose 50 % in Water (Syg) 50 ML SYRINGE IVP PRN (20:02)
[2022-01-06] MEDS ORDERED: Dextrose Gel 15 GM/37.5 ML TUBE PO PRN ×2 (20:02)
[2022-01-06] MEDS ORDERED: *HR* OxyCODONE Immed Rel 5 MG TABLET PO PRN (20:02)
[2022-01-06] MEDS ORDERED: traZODone 50 MG TABLET PO SCH (21:00)
[2022-01-06] MEDS: QUEtiapine Fumarate 300 MG TABLET PO SCH (22:16)
[2022-01-06] MEDS: traZODone 50 MG TABLET PO SCH (22:16)
[2022-01-07] MEDS: Acetaminophen IV 1,000 MG/100 ML BAG IVPB SCH ×5 (00:23→23:35)
[2022-01-07] MEDS: Piperacillin/Tazobactam 3.375 GM in 0.9 % Sodium Chloride Mini Bag 100 ML IVPB SCH ×4 (00:24→23:35)
[2022-01-07] MEDS: Pantoprazole 40 MG VIAL IVP SCH ×2 (04:57→17:11)
[2022-01-07] MEDS: *HR* Heparin 5,000 UNIT/ML VIAL SQ SCH ×3 (04:57→22:24)
[2022-01-07] MEDS: *HR* HYDROmorphone (PF) 1 MG/ML SYRINGE IVP PRN ×4 (04:57→19:53)
[2022-01-07 06:03] LABS: Basophils # 0.1 K/mcL (0.0-0.2); Basophils % 1.2 %; Eosinophils # 0.3 K/mcL (0.0-0.6); Eosinophils % 5.3 %; Hemoglobin 10.6 g/dL (11.5-15.4); Immature Granulocytes % 0.7 % (0-4); Lymphocytes # 1.5 K/mcL (0.6-4.6); Lymphocytes % 26.7 %; Mean Corpuscular HGB Conc 32.1 g/dL (31.6-35.5); Mean Corpuscular Hemoglobin 26.9 pg (28.0-33.3); Mean Corpuscular Volume 83.8 fL (83.0-100.0); Monocytes # 0.7 K/mcL (0.0-1.3); Monocytes % 12.7 %; Platelet Count 510 K/mcL (140-400); Red Blood Count 3.94 M/mcL (3.82-4.97); Red Cell Distribution Width 13.8 % (11.5-14.5); Segmented Neutrophils % 53.4 %; White Blood Count 5.7 K/mcL (4.3-11.1)
[2022-01-07 06:18] LABS: BUN/Creatinine Ratio 5 (6-26); Blood Urea Nitrogen 3 mg/dL (6-20); Calcium 8.4 mg/dL (8.6-10.3); Carbon Dioxide 19 mEq/L (23-29); Chloride 101 mEq/L (98-107); Glucose 123 mg/dL (70-105); Magnesium 1.6 mg/dL (1.6-2.6); Osmolality,Calculated 274 (280-300); Potassium 3.5 mEq/L (3.5-5.1); Sodium 133 mEq/L (136-145)
[2022-01-07] MEDS: Insulin LISPRO 300 UNITS/3 ML VIAL SUBQ SCH ×3 (07:34→16:53)
[2022-01-07] MEDS: PARoxetine 10 MG TABLET PO SCH ×2 (08:32→22:25)
[2022-01-07] MEDS: lisinopriL 10 MG TABLET PO SCH (08:32)
[2022-01-07] MEDS: Ondansetron 4 MG/2 ML VIAL IVP PRN (12:10)
[2022-01-07] MEDS: *HR* OxyCODONE Immed Rel 5 MG TABLET PO PRN (22:24)
[2022-01-07] MEDS: QUEtiapine Fumarate 300 MG TABLET PO SCH (22:24)
[2022-01-07] MEDS: traZODone 50 MG TABLET PO SCH (22:25)
[2022-01-08] MEDS: *HR* HYDROmorphone (PF) 1 MG/ML SYRINGE IVP PRN ×4 (03:22→21:11)
[2022-01-08] MEDS: *HR* Heparin 5,000 UNIT/ML VIAL SQ SCH ×3 (04:53→21:12)
[2022-01-08] MEDS: Acetaminophen IV 1,000 MG/100 ML BAG IVPB SCH (04:53)
[2022-01-08] MEDS: Pantoprazole 40 MG VIAL IVP SCH (04:54)
[2022-01-08 06:19] LABS: BUN/Creatinine Ratio 6 (6-26); Blood Urea Nitrogen 3 mg/dL (6-20); Calcium 8.3 mg/dL (8.6-10.3); Carbon Dioxide 21 mEq/L (23-29); Chloride 103 mEq/L (98-107); Glucose 133 mg/dL (70-105); Magnesium 1.4 mg/dL (1.6-2.6); Osmolality,Calculated 276 (280-300); Phosphorous 3.8 mg/dL (2.7-4.5); Potassium 3.7 mEq/L (3.5-5.1); Sodium 134 mEq/L (136-145)
[2022-01-08] MEDS: Insulin LISPRO 300 UNITS/3 ML VIAL SUBQ SCH ×3 (08:15→18:03)
[2022-01-08] MEDS: Piperacillin/Tazobactam 3.375 GM in 0.9 % Sodium Chloride Mini Bag 100 ML IVPB SCH ×2 (08:16→18:02)
[2022-01-08] MEDS: PARoxetine 10 MG TABLET PO SCH ×2 (08:20→21:09)
[2022-01-08] MEDS: lisinopriL 10 MG TABLET PO SCH (08:20)
[2022-01-08] MEDS: Ondansetron 4 MG/2 ML VIAL IVP PRN ×2 (08:21→18:03)
[2022-01-08 08:52] LABS: Basophils # 0.1 K/mcL (0.0-0.2); Eosinophils # 0.5 K/mcL (0.0-0.6); Eosinophils % 6.6 %; Hematocrit 34.4 % (35.3-44.9); Immature Granulocytes % 0.4 % (0-4); Lymphocytes # 1.7 K/mcL (0.6-4.6); Lymphocytes % 21.6 %; Mean Corpuscular Volume 84.3 fL (83.0-100.0); Mean Platelet Volume 8.8 fL (9.4-12.4); Monocytes # 0.9 K/mcL (0.0-1.3); Monocytes % 11.1 %; Neutrophils # 4.7 K/mcL (1.6-8.9); Platelet Count 536 K/mcL (140-400); Red Blood Count 4.08 M/mcL (3.82-4.97); Red Cell Distribution Width 14.1 % (11.5-14.5); Segmented Neutrophils % 59.3 %; White Blood Count 7.9 K/mcL (4.3-11.1)
[2022-01-08] MEDS: *HR* OxyCODONE Immed Rel 5 MG TABLET PO PRN (18:03)
[2022-01-08] MEDS: QUEtiapine Fumarate 300 MG TABLET PO SCH (21:10)
[2022-01-08] MEDS: traZODone 50 MG TABLET PO SCH (21:11)
[2022-01-09] MEDS: *HR* OxyCODONE Immed Rel 5 MG TABLET PO PRN ×4 (01:52→21:01)
[2022-01-09] MEDS: Piperacillin/Tazobactam 3.375 GM in 0.9 % Sodium Chloride Mini Bag 100 ML IVPB SCH ×3 (01:52→16:42)
[2022-01-09] MEDS: *HR* HYDROmorphone (PF) 1 MG/ML SYRINGE IVP PRN ×4 (04:50→23:10)
[2022-01-09] MEDS: *HR* Heparin 5,000 UNIT/ML VIAL SQ SCH ×3 (06:16→21:03)
[2022-01-09] MEDS: Insulin LISPRO 300 UNITS/3 ML VIAL SUBQ SCH ×3 (07:31→16:53)
[2022-01-09] MEDS: lisinopriL 10 MG TABLET PO SCH (08:37)
[2022-01-09] MEDS: PARoxetine 10 MG TABLET PO SCH (08:43)
[2022-01-09 11:40] LABS: Basophils # 0.1 K/mcL (0.0-0.2); Eosinophils # 0.6 K/mcL (0.0-0.6); Eosinophils % 6.7 %; Hematocrit 35.1 % (35.3-44.9); Hemoglobin 11.2 g/dL (11.5-15.4); Immature Granulocytes % 0.4 % (0-4); Lymphocytes # 1.8 K/mcL (0.6-4.6); Lymphocytes % 19.5 %; Mean Corpuscular HGB Conc 31.9 g/dL (31.6-35.5); Mean Corpuscular Volume 84.6 fL (83.0-100.0); Mean Platelet Volume 8.9 fL (9.4-12.4); Monocytes # 0.8 K/mcL (0.0-1.3); Monocytes % 9.3 %; Neutrophils # 5.7 K/mcL (1.6-8.9); Platelet Count 477 K/mcL (140-400); Red Blood Count 4.15 M/mcL (3.82-4.97); Red Cell Distribution Width 14.5 % (11.5-14.5); Segmented Neutrophils % 63.1 %
[2022-01-09 11:49] LABS: BUN/Creatinine Ratio 9 (6-26); Blood Urea Nitrogen 5 mg/dL (6-20); Carbon Dioxide 22 mEq/L (23-29); Chloride 100 mEq/L (98-107); Glucose 184 mg/dL (70-105); Magnesium 1.3 mg/dL (1.6-2.6); Osmolality,Calculated 278 (280-300); Potassium 3.3 mEq/L (3.5-5.1); Sodium 133 mEq/L (136-145)
[2022-01-09] MEDS: traZODone 50 MG TABLET PO SCH (21:00)
[2022-01-09] MEDS: QUEtiapine Fumarate 300 MG TABLET PO SCH (21:00)
[2022-01-10] MEDS: Piperacillin/Tazobactam 3.375 GM in 0.9 % Sodium Chloride Mini Bag 100 ML IVPB SCH ×3 (00:26→17:41)
[2022-01-10] MEDS: PARoxetine 10 MG TABLET PO SCH ×3 (05:22→21:59)
[2022-01-10] MEDS: *HR* Heparin 5,000 UNIT/ML VIAL SQ SCH ×2 (05:22→14:45)
[2022-01-10] MEDS: *HR* HYDROmorphone (PF) 1 MG/ML SYRINGE IVP PRN ×3 (05:23→17:41)
[2022-01-10] MEDS: Insulin LISPRO 300 UNITS/3 ML VIAL SUBQ SCH ×3 (08:29→17:47)
[2022-01-10] MEDS: lisinopriL 10 MG TABLET PO SCH (08:30)
[2022-01-10] MEDS: *HR* OxyCODONE Immed Rel 5 MG TABLET PO PRN ×3 (08:56→22:00)
[2022-01-10 12:42] LABS: Basophils # 0.1 K/mcL (0.0-0.2); Basophils % 1.2 %; Eosinophils % 11.5 %; Hematocrit 36.7 % (35.3-44.9); Hemoglobin 11.8 g/dL (11.5-15.4); Immature Granulocytes % 0.5 % (0-4); Lymphocytes # 1.9 K/mcL (0.6-4.6); Mean Corpuscular HGB Conc 32.2 g/dL (31.6-35.5); Mean Corpuscular Hemoglobin 27.4 pg (28.0-33.3); Mean Corpuscular Volume 85.2 fL (83.0-100.0); Monocytes # 0.9 K/mcL (0.0-1.3); Monocytes % 9.8 %; Neutrophils # 4.8 K/mcL (1.6-8.9); Platelet Count 453 K/mcL (140-400); Red Blood Count 4.31 M/mcL (3.82-4.97); Red Cell Distribution Width 14.4 % (11.5-14.5); White Blood Count 8.6 K/mcL (4.3-11.1)
[2022-01-10 12:54] LABS: BUN/Creatinine Ratio 8 (6-26); Blood Urea Nitrogen 5 mg/dL (6-20); Calcium 8.7 mg/dL (8.6-10.3); Carbon Dioxide 21 mEq/L (23-29); Chloride 100 mEq/L (98-107); Glucose 153 mg/dL (70-105); Magnesium 1.4 mg/dL (1.6-2.6); Osmolality,Calculated 272 (280-300); Potassium 3.4 mEq/L (3.5-5.1); Sodium 131 mEq/L (136-145)
[2022-01-10] MEDS: QUEtiapine Fumarate 300 MG TABLET PO SCH (21:59)
[2022-01-10] MEDS: traZODone 50 MG TABLET PO SCH (22:00)
[2022-01-11] MEDS: *HR* Heparin 5,000 UNIT/ML VIAL SQ SCH ×4 (00:48→21:03)
[2022-01-11] MEDS: Piperacillin/Tazobactam 3.375 GM in 0.9 % Sodium Chloride Mini Bag 100 ML IVPB SCH ×3 (00:49→16:40)
[2022-01-11] MEDS: *HR* HYDROmorphone (PF) 1 MG/ML SYRINGE IVP PRN ×4 (01:10→21:02)
[2022-01-11 05:41] LABS: Basophils # 0.1 K/mcL (0.0-0.2); Basophils % 1.1 %; Eosinophils # 0.9 K/mcL (0.0-0.6); Eosinophils % 13.6 %; Hematocrit 35.6 % (35.3-44.9); Hemoglobin 11.1 g/dL (11.5-15.4); Immature Granulocytes % 0.2 % (0-4); Lymphocytes % 31.4 %; Mean Corpuscular HGB Conc 31.2 g/dL (31.6-35.5); Mean Corpuscular Hemoglobin 26.6 pg (28.0-33.3); Mean Corpuscular Volume 85.2 fL (83.0-100.0); Mean Platelet Volume 9.3 fL (9.4-12.4); Monocytes # 0.7 K/mcL (0.0-1.3); Monocytes % 11.3 %; Neutrophils # 2.8 K/mcL (1.6-8.9); Platelet Count 374 K/mcL (140-400); Red Blood Count 4.18 M/mcL (3.82-4.97); Red Cell Distribution Width 14.5 % (11.5-14.5); Segmented Neutrophils % 42.4 %; White Blood Count 6.5 K/mcL (4.3-11.1)
[2022-01-11] MEDS: *HR* OxyCODONE Immed Rel 5 MG TABLET PO PRN ×3 (05:52→16:40)
[2022-01-11 06:01] LABS: BUN/Creatinine Ratio 7 (6-26); Blood Urea Nitrogen 4 mg/dL (6-20); Calcium 8.5 mg/dL (8.6-10.3); Carbon Dioxide 22 mEq/L (23-29); Chloride 103 mEq/L (98-107); Glucose 166 mg/dL (70-105); Magnesium 1.3 mg/dL (1.6-2.6); Osmolality,Calculated 283 (280-300); Potassium 3.1 mEq/L (3.5-5.1); Sodium 136 mEq/L (136-145)
[2022-01-11] MEDS: Insulin LISPRO 300 UNITS/3 ML VIAL SUBQ SCH ×3 (08:08→16:28)
[2022-01-11] MEDS: lisinopriL 10 MG TABLET PO SCH (08:09)
[2022-01-11] MEDS: PARoxetine 10 MG TABLET PO SCH (09:00)
[2022-01-11] MEDS: traZODone 50 MG TABLET PO SCH (21:03)
[2022-01-11] MEDS: QUEtiapine Fumarate 300 MG TABLET PO SCH (21:03)
[2022-01-12] MEDS: PARoxetine 10 MG TABLET PO SCH ×3 (01:49→20:30)
[2022-01-12] MEDS: Piperacillin/Tazobactam 3.375 GM in 0.9 % Sodium Chloride Mini Bag 100 ML IVPB SCH (01:50)
[2022-01-12] MEDS: *HR* HYDROmorphone (PF) 1 MG/ML SYRINGE IVP PRN ×4 (03:25→22:07)
[2022-01-12] MEDS: *HR* Heparin 5,000 UNIT/ML VIAL SQ SCH ×3 (05:58→20:30)
[2022-01-12 06:00] LABS: Basophils # 0.1 K/mcL (0.0-0.2); Basophils % 0.8 %; Eosinophils # 0.9 K/mcL (0.0-0.6); Eosinophils % 14.2 %; Hematocrit 35.2 % (35.3-44.9); Hemoglobin 11.1 g/dL (11.5-15.4); Immature Granulocytes % 0.3 % (0-4); Lymphocytes # 1.3 K/mcL (0.6-4.6); Lymphocytes % 20.6 %; Mean Corpuscular HGB Conc 31.5 g/dL (31.6-35.5); Mean Corpuscular Hemoglobin 27.1 pg (28.0-33.3); Mean Corpuscular Volume 85.9 fL (83.0-100.0); Mean Platelet Volume 9.6 fL (9.4-12.4); Monocytes # 0.6 K/mcL (0.0-1.3); Monocytes % 10.1 %; Neutrophils # 3.4 K/mcL (1.6-8.9); Platelet Count 338 K/mcL (140-400); Red Cell Distribution Width 14.6 % (11.5-14.5); White Blood Count 6.4 K/mcL (4.3-11.1)
[2022-01-12 06:28] LABS: BUN/Creatinine Ratio 6 (6-26); Blood Urea Nitrogen 3 mg/dL (6-20); Calcium 8.9 mg/dL (8.6-10.3); Carbon Dioxide 22 mEq/L (23-29); Chloride 104 mEq/L (98-107); Glucose 183 mg/dL (70-105); Magnesium 1.5 mg/dL (1.6-2.6); Osmolality,Calculated 283 (280-300); Potassium 3.8 mEq/L (3.5-5.1); Sodium 136 mEq/L (136-145)
[2022-01-12] MEDS: lisinopriL 10 MG TABLET PO SCH (09:56)
[2022-01-12] MEDS: Ondansetron 4 MG/2 ML VIAL IVP PRN (09:57)
[2022-01-12] MEDS: Insulin LISPRO 300 UNITS/3 ML VIAL SUBQ SCH ×3 (10:08→16:09)
[2022-01-12] MEDS: *HR* OxyCODONE Immed Rel 5 MG TABLET PO PRN ×2 (13:20→19:35)
[2022-01-12] MEDS: traZODone 50 MG TABLET PO SCH (20:30)
[2022-01-12] MEDS: QUEtiapine Fumarate 300 MG TABLET PO SCH (20:30)
[2022-01-13] MEDS: *HR* OxyCODONE Immed Rel 5 MG TABLET PO PRN ×2 (01:42→12:37)
[2022-01-13 03:29] LABS: Basophils # 0.1 K/mcL (0.0-0.2); Basophils % 0.7 %; Eosinophils # 1.1 K/mcL (0.0-0.6); Eosinophils % 15.9 %; Hematocrit 35.8 % (35.3-44.9); Hemoglobin 11.4 g/dL (11.5-15.4); Immature Granulocytes % 0.1 % (0-4); Lymphocytes # 2.5 K/mcL (0.6-4.6); Lymphocytes % 37.3 %; Mean Corpuscular HGB Conc 31.8 g/dL (31.6-35.5); Mean Corpuscular Volume 84.8 fL (83.0-100.0); Mean Platelet Volume 9.6 fL (9.4-12.4); Monocytes # 0.7 K/mcL (0.0-1.3); Monocytes % 10.9 %; Neutrophils # 2.4 K/mcL (1.6-8.9); Platelet Count 338 K/mcL (140-400); Red Blood Count 4.22 M/mcL (3.82-4.97); Red Cell Distribution Width 14.3 % (11.5-14.5); Segmented Neutrophils % 35.1 %; White Blood Count 6.7 K/mcL (4.3-11.1)
[2022-01-13 03:47] LABS: BUN/Creatinine Ratio 4 (6-26); Blood Urea Nitrogen 2 mg/dL (6-20); Calcium 8.9 mg/dL (8.6-10.3); Carbon Dioxide 22 mEq/L (23-29); Chloride 103 mEq/L (98-107); Glucose 154 mg/dL (70-105); Magnesium 1.5 mg/dL (1.6-2.6); Osmolality,Calculated 277 (280-300); Potassium 3.7 mEq/L (3.5-5.1); Sodium 134 mEq/L (136-145)
[2022-01-13] MEDS: *HR* HYDROmorphone (PF) 1 MG/ML SYRINGE IVP PRN ×3 (04:07→21:08)
[2022-01-13] MEDS: Ondansetron 4 MG/2 ML VIAL IVP PRN ×2 (04:08→14:57)
[2022-01-13] MEDS: 0.9 % Sodium Chloride 1,000 ML IVC SCH ×2 (04:15→17:35)
[2022-01-13] MEDS: *HR* Heparin 5,000 UNIT/ML VIAL SQ SCH ×3 (06:06→21:09)
[2022-01-13] MEDS: PARoxetine 10 MG TABLET PO SCH ×2 (09:22→21:08)
[2022-01-13] MEDS: lisinopriL 10 MG TABLET PO SCH (09:22)
[2022-01-13] MEDS: Insulin LISPRO 300 UNITS/3 ML VIAL SUBQ SCH ×3 (09:23→17:35)
[2022-01-13] MEDS ORDERED: Simethicone 40 MG/0.6 ML MLS IR ONE (12:37)
[2022-01-13] MEDS ORDERED: Lidocaine -MPF 2% 5 ML VIAL ONE (13:11)
[2022-01-13] MEDS: traZODone 50 MG TABLET PO SCH (21:08)
[2022-01-13] MEDS: QUEtiapine Fumarate 300 MG TABLET PO SCH (21:08)
[2022-01-14] MEDS: *HR* HYDROmorphone (PF) 1 MG/ML SYRINGE IVP PRN ×2 (03:29→12:15)
[2022-01-14] MEDS: 0.9 % Sodium Chloride 1,000 ML IVC SCH (03:30)
[2022-01-14 06:44] LABS: Basophils % 0.7 %; Eosinophils # 0.8 K/mcL (0.0-0.6); Eosinophils % 14.2 %; Hematocrit 33.4 % (35.3-44.9); Hemoglobin 10.6 g/dL (11.5-15.4); Immature Granulocytes % 0.4 % (0-4); Lymphocytes # 1.7 K/mcL (0.6-4.6); Lymphocytes % 30.4 %; Mean Corpuscular HGB Conc 31.7 g/dL (31.6-35.5); Mean Corpuscular Hemoglobin 27.3 pg (28.0-33.3); Mean Corpuscular Volume 86.1 fL (83.0-100.0); Mean Platelet Volume 9.5 fL (9.4-12.4); Monocytes # 0.6 K/mcL (0.0-1.3); Monocytes % 9.9 %; Neutrophils # 2.5 K/mcL (1.6-8.9); Platelet Count 281 K/mcL (140-400); Red Blood Count 3.88 M/mcL (3.82-4.97); Red Cell Distribution Width 14.5 % (11.5-14.5); Segmented Neutrophils % 44.4 %; White Blood Count 5.6 K/mcL (4.3-11.1)
[2022-01-14] MEDS: *HR* Heparin 5,000 UNIT/ML VIAL SQ SCH ×3 (07:45→20:42)
[2022-01-14 08:41] LABS: BUN/Creatinine Ratio 4 (6-26); Blood Urea Nitrogen 2 mg/dL (6-20); Calcium 8.6 mg/dL (8.6-10.3); Carbon Dioxide 23 mEq/L (23-29); Chloride 106 mEq/L (98-107); Glucose 167 mg/dL (70-105); Magnesium 1.5 mg/dL (1.6-2.6); Osmolality,Calculated 282 (280-300); Potassium 3.8 mEq/L (3.5-5.1); Sodium 136 mEq/L (136-145)
[2022-01-14] MEDS: lisinopriL 10 MG TABLET PO SCH (09:25)
[2022-01-14] MEDS: Magnesium Oxide 400 MG TABLET PO SCH (09:25)
[2022-01-14] MEDS: Insulin LISPRO 300 UNITS/3 ML VIAL SUBQ SCH ×3 (09:26→17:42)
[2022-01-14] MEDS: PARoxetine 10 MG TABLET PO SCH ×2 (09:32→20:43)
[2022-01-14] MEDS: *HR* OxyCODONE Immed Rel 5 MG TABLET PO PRN ×3 (09:32→23:12)
[2022-01-14] MEDS ORDERED: *HR* FentaNYL (PF) 100 MCG/2 ML VIAL IVP ONE ×2 (12:44→13:55)
[2022-01-14] MEDS: Silver Sulfadiazine 50 GM TUBE TP SCH (18:05)
[2022-01-14] MEDS: QUEtiapine Fumarate 300 MG TABLET PO SCH (20:43)
[2022-01-14] MEDS: traZODone 50 MG TABLET PO SCH (20:43)
[2022-01-15] MEDS: *HR* Heparin 5,000 UNIT/ML VIAL SQ SCH ×3 (04:10→22:08)
[2022-01-15] MEDS: *HR* OxyCODONE Immed Rel 5 MG TABLET PO PRN ×4 (04:10→20:24)
[2022-01-15 06:23] LABS: Basophils # 0.1 K/mcL (0.0-0.2); Basophils % 0.9 %; Eosinophils # 0.9 K/mcL (0.0-0.6); Eosinophils % 13.2 %; Hematocrit 34.1 % (35.3-44.9); Hemoglobin 10.6 g/dL (11.5-15.4); Immature Granulocytes % 0.3 % (0-4); Lymphocytes # 2.2 K/mcL (0.6-4.6); Lymphocytes % 31.8 %; Mean Corpuscular HGB Conc 31.1 g/dL (31.6-35.5); Mean Corpuscular Hemoglobin 26.6 pg (28.0-33.3); Mean Corpuscular Volume 85.5 fL (83.0-100.0); Mean Platelet Volume 10.1 fL (9.4-12.4); Monocytes # 0.7 K/mcL (0.0-1.3); Platelet Count 312 K/mcL (140-400); Red Blood Count 3.99 M/mcL (3.82-4.97); Red Cell Distribution Width 14.3 % (11.5-14.5); Segmented Neutrophils % 43.8 %; White Blood Count 6.8 K/mcL (4.3-11.1)
[2022-01-15 06:48] LABS: BUN/Creatinine Ratio 5 (6-26); Blood Urea Nitrogen 3 mg/dL (6-20); Calcium 8.6 mg/dL (8.6-10.3); Carbon Dioxide 25 mEq/L (23-29); Chloride 102 mEq/L (98-107); Glucose 169 mg/dL (70-105); Magnesium 1.6 mg/dL (1.6-2.6); Osmolality,Calculated 280 (280-300); Potassium 3.6 mEq/L (3.5-5.1); Sodium 135 mEq/L (136-145)
[2022-01-15] MEDS: Insulin LISPRO 300 UNITS/3 ML VIAL SUBQ SCH ×3 (08:12→17:31)
[2022-01-15] MEDS: Magnesium Oxide 400 MG TABLET PO SCH (08:13)
[2022-01-15] MEDS: PARoxetine 10 MG TABLET PO SCH ×2 (08:13→20:24)
[2022-01-15] MEDS: Silver Sulfadiazine 50 GM TUBE TP SCH (08:13)
[2022-01-15] MEDS: lisinopriL 10 MG TABLET PO SCH (08:13)
[2022-01-15] MEDS ORDERED: Acetaminophen 325 MG TABLET PO PRN (15:06)
[2022-01-15] MEDS: QUEtiapine Fumarate 300 MG TABLET PO SCH (20:23)
[2022-01-15] MEDS: traZODone 50 MG TABLET PO SCH (20:25)
[2022-01-16] MEDS: *HR* OxyCODONE Immed Rel 5 MG TABLET PO PRN ×4 (04:53→20:57)
[2022-01-16] MEDS: *HR* Heparin 5,000 UNIT/ML VIAL SQ SCH ×3 (04:54→21:02)
[2022-01-16] MEDS: PARoxetine 10 MG TABLET PO SCH ×2 (09:44→20:58)
[2022-01-16] MEDS: Magnesium Oxide 400 MG TABLET PO SCH (09:44)
[2022-01-16] MEDS: Insulin LISPRO 300 UNITS/3 ML VIAL SUBQ SCH ×3 (09:45→16:53)
[2022-01-16] MEDS: Silver Sulfadiazine 50 GM TUBE TP SCH (09:54)
[2022-01-16] MEDS: lisinopriL 10 MG TABLET PO SCH (10:15)
[2022-01-16] MEDS: traZODone 50 MG TABLET PO SCH (20:58)
[2022-01-16] MEDS: QUEtiapine Fumarate 300 MG TABLET PO SCH (21:00)
[2022-01-17 03:23] LABS: Basophils # 0.1 K/mcL (0.0-0.2); Basophils % 0.8 %; Eosinophils # 0.8 K/mcL (0.0-0.6); Eosinophils % 11.1 %; Hematocrit 34.1 % (35.3-44.9); Hemoglobin 10.7 g/dL (11.5-15.4); Immature Granulocytes % 0.3 % (0-4); Lymphocytes # 2.5 K/mcL (0.6-4.6); Lymphocytes % 33.4 %; Mean Corpuscular HGB Conc 31.4 g/dL (31.6-35.5); Mean Corpuscular Hemoglobin 26.8 pg (28.0-33.3); Mean Corpuscular Volume 85.5 fL (83.0-100.0); Mean Platelet Volume 9.7 fL (9.4-12.4); Monocytes # 0.8 K/mcL (0.0-1.3); Monocytes % 10.9 %; Neutrophils # 3.3 K/mcL (1.6-8.9); Platelet Count 287 K/mcL (140-400); Red Blood Count 3.99 M/mcL (3.82-4.97); Red Cell Distribution Width 14.1 % (11.5-14.5); Segmented Neutrophils % 43.5 %; White Blood Count 7.5 K/mcL (4.3-11.1)
[2022-01-17 03:40] LABS: BUN/Creatinine Ratio 7 (6-26); Blood Urea Nitrogen 4 mg/dL (6-20); Calcium 8.5 mg/dL (8.6-10.3); Carbon Dioxide 22 mEq/L (23-29); Chloride 104 mEq/L (98-107); Glucose 146 mg/dL (70-105); Magnesium 1.3 mg/dL (1.6-2.6); Osmolality,Calculated 282 (280-300); Phosphorous 4.1 mg/dL (2.7-4.5); Potassium 3.7 mEq/L (3.5-5.1); Sodium 136 mEq/L (136-145)
[2022-01-17] MEDS: *HR* OxyCODONE Immed Rel 5 MG TABLET PO PRN ×4 (04:17→21:15)
[2022-01-17] MEDS: *HR* Heparin 5,000 UNIT/ML VIAL SQ SCH ×3 (05:25→21:08)
[2022-01-17] MEDS: Ondansetron 4 MG/2 ML VIAL IVP PRN (05:27)
[2022-01-17] MEDS: Insulin LISPRO 300 UNITS/3 ML VIAL SUBQ SCH ×3 (07:58→18:29)
[2022-01-17] MEDS: lisinopriL 10 MG TABLET PO SCH (10:10)
[2022-01-17] MEDS: PARoxetine 10 MG TABLET PO SCH ×2 (10:10→21:07)
[2022-01-17] MEDS: Magnesium Oxide 400 MG TABLET PO SCH ×2 (10:10→21:08)
[2022-01-17] MEDS: Silver Sulfadiazine 50 GM TUBE TP SCH (11:49)
[2022-01-17] MEDS: QUEtiapine Fumarate 300 MG TABLET PO SCH (21:08)
[2022-01-17] MEDS: traZODone 50 MG TABLET PO SCH (21:08)
[2022-01-18] MEDS: *HR* OxyCODONE Immed Rel 5 MG TABLET PO PRN ×2 (01:15→05:20)
[2022-01-18] MEDS: *HR* Heparin 5,000 UNIT/ML VIAL SQ SCH ×3 (05:21→21:11)
[2022-01-18 07:02] LABS: Basophils # 0.1 K/mcL (0.0-0.2); Basophils % 0.8 %; Eosinophils # 0.9 K/mcL (0.0-0.6); Eosinophils % 12.6 %; Immature Granulocytes % 0.3 % (0-4); Lymphocytes % 27.2 %; Mean Corpuscular HGB Conc 31.4 g/dL (31.6-35.5); Mean Corpuscular Hemoglobin 26.9 pg (28.0-33.3); Mean Corpuscular Volume 85.6 fL (83.0-100.0); Mean Platelet Volume 9.4 fL (9.4-12.4); Monocytes # 0.8 K/mcL (0.0-1.3); Monocytes % 11.1 %; Neutrophils # 3.5 K/mcL (1.6-8.9); Platelet Count 272 K/mcL (140-400); Red Blood Count 4.09 M/mcL (3.82-4.97); Red Cell Distribution Width 14.2 % (11.5-14.5); White Blood Count 7.3 K/mcL (4.3-11.1)
[2022-01-18 07:14] LABS: BUN/Creatinine Ratio 5 (6-26); Blood Urea Nitrogen 3 mg/dL (6-20); Calcium 8.8 mg/dL (8.6-10.3); Carbon Dioxide 24 mEq/L (23-29); Chloride 101 mEq/L (98-107); Glucose 170 mg/dL (70-105); Osmolality,Calculated 277 (280-300); Potassium 3.9 mEq/L (3.5-5.1); Sodium 133 mEq/L (136-145)
[2022-01-18] MEDS: Insulin LISPRO 300 UNITS/3 ML VIAL SUBQ SCH ×3 (10:57→16:18)
[2022-01-18] MEDS: PARoxetine 10 MG TABLET PO SCH ×2 (11:01→21:14)
[2022-01-18] MEDS: lisinopriL 10 MG TABLET PO SCH (11:01)
[2022-01-18] MEDS: Magnesium Oxide 400 MG TABLET PO SCH ×2 (11:02→21:10)
[2022-01-18] MEDS: Silver Sulfadiazine 50 GM TUBE TP SCH (11:04)
[2022-01-18] MEDS: *HR* HYDROmorphone (PF) 1 MG/ML SYRINGE IVP PRN ×3 (12:54→21:09)
[2022-01-18] MEDS: traZODone 50 MG TABLET PO SCH (21:10)
[2022-01-18] MEDS: QUEtiapine Fumarate 300 MG TABLET PO SCH (21:10)
[2022-01-19 01:42] LABS: Basophils # 0.1 K/mcL (0.0-0.2); Eosinophils # 0.9 K/mcL (0.0-0.6); Eosinophils % 14.8 %; Hematocrit 34.9 % (35.3-44.9); Hemoglobin 11.1 g/dL (11.5-15.4); Immature Granulocytes % 0.2 % (0-4); Lymphocytes % 33.9 %; Mean Corpuscular HGB Conc 31.8 g/dL (31.6-35.5); Mean Corpuscular Hemoglobin 27.2 pg (28.0-33.3); Mean Corpuscular Volume 85.5 fL (83.0-100.0); Mean Platelet Volume 9.4 fL (9.4-12.4); Monocytes # 0.7 K/mcL (0.0-1.3); Monocytes % 10.9 %; Neutrophils # 2.3 K/mcL (1.6-8.9); Platelet Count 278 K/mcL (140-400); Red Blood Count 4.08 M/mcL (3.82-4.97); Red Cell Distribution Width 14.2 % (11.5-14.5); Segmented Neutrophils % 39.2 %
[2022-01-19 02:04] LABS: BUN/Creatinine Ratio 7 (6-26); Blood Urea Nitrogen 4 mg/dL (6-20); Calcium 8.9 mg/dL (8.6-10.3); Carbon Dioxide 26 mEq/L (23-29); Chloride 100 mEq/L (98-107); Glucose 156 mg/dL (70-105); Magnesium 1.5 mg/dL (1.6-2.6); Osmolality,Calculated 274 (280-300); Potassium 4.1 mEq/L (3.5-5.1); Sodium 132 mEq/L (136-145)
[2022-01-19] MEDS: *HR* HYDROmorphone (PF) 1 MG/ML SYRINGE IVP PRN ×5 (02:14→21:17)
[2022-01-19] MEDS: *HR* Heparin 5,000 UNIT/ML VIAL SQ SCH ×3 (05:59→21:20)
[2022-01-19] MEDS: PARoxetine 10 MG TABLET PO SCH ×2 (07:54→21:19)
[2022-01-19] MEDS: lisinopriL 10 MG TABLET PO SCH (07:54)
[2022-01-19] MEDS: Magnesium Oxide 400 MG TABLET PO SCH ×2 (07:54→21:20)
[2022-01-19] MEDS: Insulin LISPRO 300 UNITS/3 ML VIAL SUBQ SCH ×3 (07:55→16:53)
[2022-01-19] MEDS: Silver Sulfadiazine 50 GM TUBE TP SCH (10:10)
[2022-01-19] MEDS: Ondansetron 4 MG/2 ML VIAL IVP PRN (16:52)
[2022-01-19] MEDS ORDERED: Magnesium Oxide 400 MG TABLET ONE (20:00)
[2022-01-19] MEDS ORDERED: traZODone 50 MG TABLET ONE (20:01)
[2022-01-19] MEDS ORDERED: QUEtiapine Fumarate 300 MG TABLET ONE (20:01)
[2022-01-19] MEDS ORDERED: *HR* Heparin 5,000 UNIT/ML VIAL ONE (20:01)
[2022-01-19] MEDS: traZODone 50 MG TABLET PO SCH (21:19)
[2022-01-19] MEDS: QUEtiapine Fumarate 300 MG TABLET PO SCH (21:20)
[2022-01-20] MEDS: *HR* OxyCODONE Immed Rel 5 MG TABLET PO PRN (00:46)
[2022-01-20] MEDS: *HR* HYDROmorphone (PF) 1 MG/ML SYRINGE IVP PRN ×3 (04:18→12:47)
[2022-01-20] MEDS: *HR* Heparin 5,000 UNIT/ML VIAL SQ SCH (04:19)
[2022-01-20 05:55] LABS: Hematocrit 34.9 % (35.3-44.9); Mean Corpuscular HGB Conc 31.5 g/dL (31.6-35.5); Mean Corpuscular Hemoglobin 26.7 pg (28.0-33.3); Mean Corpuscular Volume 84.7 fL (83.0-100.0); Mean Platelet Volume 9.6 fL (9.4-12.4); Platelet Count 315 K/mcL (140-400); Red Blood Count 4.12 M/mcL (3.82-4.97); Red Cell Distribution Width 14.1 % (11.5-14.5); White Blood Count 5.2 K/mcL (4.3-11.1)
[2022-01-20 06:13] LABS: BUN/Creatinine Ratio 9 (6-26); Blood Urea Nitrogen 5 mg/dL (6-20); Calcium 9.1 mg/dL (8.6-10.3); Carbon Dioxide 24 mEq/L (23-29); Chloride 101 mEq/L (98-107); Glucose 181 mg/dL (70-105); Osmolality,Calculated 278 (280-300); Potassium 4.2 mEq/L (3.5-5.1); Sodium 133 mEq/L (136-145)
[2022-01-20] MEDS: PARoxetine 10 MG TABLET PO SCH (08:29)
[2022-01-20] MEDS: Magnesium Oxide 400 MG TABLET PO SCH (08:29)
[2022-01-20] MEDS: lisinopriL 10 MG TABLET PO SCH (08:29)
[2022-01-20] MEDS: Insulin LISPRO 300 UNITS/3 ML VIAL SUBQ SCH ×2 (08:30→12:09)
[2022-01-20] MEDS: Ondansetron 4 MG/2 ML VIAL IVP PRN (10:26)
[2022-01-20 10:42] VITALS: TEMP 98.3
[2022-01-20 10:44] VITALS: BP 103/70; PULSE 95; O2SAT 93
[2022-01-20] MEDS: Silver Sulfadiazine 50 GM TUBE TP SCH (12:09)
== END 2022-01-20 14:40 | disposition short-term general hospital (02) | DRG 863 ==
LOC: EMEROOARM 13:04 → 3ANU 13:04 → SUATTDRO 21:36 → OBSVTOIN 21:36 → 3ANU 22:15
PROVIDERS: ADMIT Student in an Organized Health Care Education/Training Program; ATTEND Internal Medicine
PROC: ENDOCCB (2022-01-13 11:30)